=== PATIENT | female | born 1955 | race Caucasian/White ===

== ENCOUNTER 2018-04-07 09:40 | Observation (INO) | payer MEDICARE ==
[2018-04-07 11:47] LABS: Hematocrit 37.9 % (35-47); Hemoglobin 12.4 gm/dl (12.0-16.0); Mean Cell Volume 93.1 fl (78-100); Mean Corpuscular Hgb Concent. 32.7 g/dl (32-36); Mean Platelet Volume 10.5 fl (6-9.5); Platelet Count 167 K/mm3 (150-450); Red Blood Count 4.07 M/mm3 (4.1-5.4); White Blood Count 5.7 K/mm3 (4.0-10.5)
[2018-04-07 11:52] LABS: ALBUMIN 4.1 g/dL (3.5-5.0); ALKALINE PHOSPHATASE 177 U/L (38-126); BLOOD UREA NITROGEN 11 mg/dL (7-17); CHLORIDE 102 mmol/L (98-107); Calcium 9.7 mg/dL (8.4-10.2); Carbon Dioxide 31 mmol/L (22-30); Creatinine 1 0.62 mg/dL (0.52-1.04); Glucose 103 mg/dL (74-106); Potassium 3.7 mmol/L (3.5-5.1); SGOT/AST 33 U/L (14-36); SGPT/ALT 20 U/L (0-35); SODIUM 142 mmol/L (137-145); Total Protein 8.3 g/dL (6.3-8.2)
[2018-04-07 12:09] LABS: Mean Corpuscular Hemoglobin 30.4 pg (26-32)
[2018-04-07] MEDS ORDERED: NON-FORMULARY ITEM (Cholecalciferol (Vitamin D3) [Vitamin D3] 50,000 UNIT) PO SCH (12:30)
[2018-04-07 12:36] LABS: INFLUENZA A NEGATIVE (NEGATIVE); INFLUENZA B NEGATIVE (NEGATIVE); RESPIRATORY SYNCTIAL VIRUS NEGATIVE (Negative)
[2018-04-07] MEDS: Sodium Chloride 0.9% 1000 ML 1,000 ML IV SCH (12:50)
--- NOTE | 2018-04-07 12:52 | XRAY ---
Indication: Cough, congestion, and fever 3 weeks. History COPD. Comparison: March 23, 2016. PA/lateral chest again hyperinflated with a few incidental calcified granulomas. No focal infiltrate, consolidation, or large effusion. Heart and mediastinal structures within normal limits. Bony thorax intact. Impression: Stable nonacute hyperinflated chest with evidence for old granulomatous disease.
[2018-04-07] MEDS ORDERED: VITAMIN D2 PO SCH (13:00)
[2018-04-07] MEDS: DUONEB 0.5-3 MG/3 ml Neb IH SCH ×2 (13:17→19:12)
[2018-04-07] MEDS: ROCEPHIN 1 Gm-D5w 50 ml Bag** 1 G/50 ML IVPB IV SCH (17:23)
[2018-04-07] MEDS: solu-MEDROL 40 MG IV SCH (17:23)
[2018-04-07] MEDS: TYLENOL EXTRA STRENGTH 500 MG PO PRN (18:02)
[2018-04-07] MEDS: Klonopin 0.5 MG PO SCH (21:28)
[2018-04-07] MEDS: Pletal 100 MG PO SCH (21:28)
[2018-04-08] MEDS: DUONEB 0.5-3 MG/3 ml Neb IH SCH ×4 (01:00→21:11)
[2018-04-08] MEDS: Sodium Chloride 0.9% 1000 ML 1,000 ML IV SCH ×2 (02:02→15:05)
[2018-04-08] MEDS: solu-MEDROL 40 MG IV SCH ×2 (05:29→17:42)
[2018-04-08] MEDS: Pletal 100 MG PO SCH ×2 (09:51→23:03)
[2018-04-08] MEDS: hydroDIURIL 25 MG PO SCH (09:52)
[2018-04-08] MEDS: Pepcid 20 MG PO SCH (09:52)
[2018-04-08] MEDS: Paxil 20 MG PO SCH (09:53)
[2018-04-08] MEDS: Cozaar 50 MG PO SCH (09:53)
[2018-04-08] MEDS: Klor Con 10 MEQ PO SCH (09:53)
[2018-04-08] MEDS: Protonix 40MG Tablet PO SCH (09:53)
[2018-04-08] MEDS: ROCEPHIN 1 Gm-D5w 50 ml Bag** 1 G/50 ML IVPB IV SCH (09:54)
[2018-04-08] MEDS ORDERED: NON-FORMULARY ITEM (Ranitidine Hcl [Ranitidine Hcl] 150 MG) PO SCH (10:00)
[2018-04-08] MEDS ORDERED: NON-FORMULARY ITEM (Losartan/Hydrochlorothiazide [Losartan-Hctz 50-12.5 Mg Tab] 1 EACH) PO SCH (10:00)
[2018-04-08] MEDS ORDERED: FLUZONE QUAD (36mo-64yo) 2018-2019 SYRINGE IM ONE (10:00)
[2018-04-08] MEDS ORDERED: NON-FORMULARY ITEM (Omeprazole [Omeprazole] 40 MG) PO SCH (10:00)
--- NOTE | 2018-04-08 13:05 | PCM.NOTE ---
Date and Time: 04/08/18 1302 Subjective Assessment: doing ok, cough - Review of Systems Constitutional: No Fever, No Chills Eyes: No Symptoms Ears, Nose, & Throat: No Symptoms Respiratory: Short Of Breath, No Cough Cardiac: No Chest Pain, No Edema, No Syncope Abdominal/Gastrointestinal: No Abdominal Pain, No Nausea, No Vomiting, No Diarrhea Genitourinary Symptoms: No Dysuria Musculoskeletal: No Back Pain, No Neck Pain Skin: No Rash Neurological: No Dizziness, No Focal Weakness, No Sensory Changes Psychological: No Symptoms Endocrine: No Symptoms Hematologic/Lymphatic: No Symptoms Immunological/Allergic: No Symptoms Objective Exam General Appearance: no apparent distress, alert Neurologic Exam: alert, oriented x 3, cooperative, normal mood/affect, nml cerebellar function, sensation nml, No motor deficits Skin Exam: normal color, warm, dry Eye Exam: PERRL, EOMI, eyes nml inspection Ears, Nose, Throat Exam: normal ENT inspection, pharynx normal, moist mucous membranes Neck Exam: normal inspection, non-tender, supple, full range of motion Respiratory Exam: normal breath sounds, lungs clear, No respiratory distress Cardiovascular Exam: regular rate/rhythm, normal heart sounds Gastrointestinal/Abdomen Exam: soft, No tenderness, No mass Extremity Exam: normal inspection, normal range of motion Back Exam: normal inspection, normal range of motion, No CVA tenderness, No vertebral tenderness Pelvic Exam: deferred Rectal Exam: deferred OBJECTIVE DATA Vital Signs: Vital Signs - 24 hr Temp Pulse Resp BP Pulse Ox 04/08/18 12:55 123 H 18 96 04/08/18 12:00 98 F 115 H 20 157/87 97 04/08/18 08:00 97.5 F 118 H 20 159/83 96 04/08/18 07:18 123 H 20 94 L 04/08/18 03:39 98.4 F 121 H 19 126/65 94 L 04/08/18 01:07 112 H 22 94 L 04/07/18 23:57 98.1 F 117 H 19 152/74 93 L 04/07/18 19:43 99.0 F 111 H 18 129/76 94 L 04/07/18 19:15 116 H 16 94 L 04/07/18 16:00 98.1 F 111 H 18 136/76 95 04/07/18 13:20 110 H 22 97 Pain Assessment - Last Documented Pain Intensity 0 Pain Scale Used 0-10 Pain Scale Intake and Output: Intake & Output 04/06/18 04/07/18 04/08/18 04/09/18 11:59 11:59 11:59 11:59 Intake Total 1780 360 Output Total 1000 500 Balance 780 -140 Weight 63.2 kg Radiology Exams: Radiology Procedures Category Date Time Status CHEST 2 VIEWS (PA AND LAT) Urgent Exams 04/07/18 12:44 Completed Multi-Disciplinary Progress Notes: Multi-Disciplinary Progress Notes 04/08/18 10:10 Case Management Note by Marcelle Blanc DISCHARGE PLAN REVIEWED, PLANS TO RETURN HOME TO PRE EPISODIC LEVEL OF [facility], INDEPENDENT WITH ALL ADL'S. AT HOME TO HELP IF NEEDED. WILL FOLLOW FOR ALL DC NEEDS. Initialized on 04/08/18 10:10 - END OF NOTE Assessment/Plan (1) COPD (chronic obstructive pulmonary disease) Current Visit: Yes Status: Acute Onset Date: ~04/07/18 Qualifiers: COPD type: chronic bronchitis Assessment & Plan: Last Vital Signs Temp 98 F 04/08/18 12:00 Pulse 123 H 04/08/18 12:55 Resp 18 04/08/18 12:55 BP 157/87 04/08/18 12:00 Pulse Ox 96 04/08/18 12:55 Allergies latex Allergy (Mild, Verified 08/24/15 12:20) Hives lamotrigine [From Lamictal] Adverse Reaction (Severe, Verified 08/24/15 12:22) Lightheadedness Active Medications Acetaminophen (Tylenol Extra Strength 500 Mg) 500 mg PO Q4HPRN PRN PRN Reason: PAIN Stop: 05/07/18 17:57 Last Admin: 04/07/18 18:02 Dose: 500 mg Albuterol/Ipratropium (Duoneb 0.5-3 Mg/3 Ml Neb) 3 ml IH Q6HRT GUSTAVO Stop: 05/07/18 12:59 Last Admin: 04/08/18 12:53 Dose: 3 ml Cilostazol (Pletal 100 Mg) 100 mg PO BID GUSTAVO Stop: 05/07/18 21:59 Last Admin: 04/08/18 09:51 Dose: 100 mg Clonazepam (Klonopin 0.5 Mg) 0.5 mg PO HS GUSTAVO Stop: 05/07/18 21:59 Last Admin: 04/07/18 21:28 Dose: 0.5 mg Diphenhydramine/Hydrocorti/Nystatin (Audelia's Mouthwash) 5 ml PO Q2H GUSTAVO Stop: 05/08/18 13:29 Ergocalciferol (Vitamin D2) 50,000 unit PO WEEKLY GUSTAVO Stop: 05/07/18 12:59 Last Admin: 04/07/18 21:28 Dose: 50,000 unit Famotidine (Pepcid 20 Mg) 20 mg PO DAILY GUSTAVO Stop: 05/08/18 09:59 Last Admin: 04/08/18 09:52 Dose: 20 mg Hydrochlorothiazide (Hydrodiuril 25 Mg) 12.5 mg PO DAILY GUSTAVO Stop: 05/08/18 09:59 Last Admin: 04/08/18 09:52 Dose: 12.5 mg Sodium Chloride (Sodium Chloride 0.9% 1000 Ml) 1,000 mls @ 80 mls/hr IV .[id number] [facility] Stop: 05/07/18 11:44 Last Admin: 04/08/18 02:02 Dose: 80 mls/hr Ceftriaxone Sodium/Dextrose (Rocephin 1 Gm-D5w 50 Ml Bag) 1 g in 50 mls @ 100 mls/hr IV Q24H10 [facility] Stop: 05/07/18 16:59 Last Admin: 04/08/18 09:54 Dose: 100 mls/hr Losartan Potassium (Cozaar 50 Mg) 50 mg PO DAILY GUSTAVO Stop: 05/08/18 09:59 Last Admin: 04/08/18 09:53 Dose: 50 mg Methylprednisolone Sodium Succinate (Solu-Medrol 40 Mg) 40 mg IV Q12H GUSTAVO Stop: 05/07/18 17:59 Last Admin: 04/08/18 05:29 Dose: 40 mg Pantoprazole Sodium (Protonix 40mg Tablet) 40 mg PO DAILY GUSTAVO Stop: 05/08/18 09:59 Last Admin: 04/08/18 09:53 Dose: 40 mg Paroxetine HCl (Paxil 20 Mg) 20 mg PO DAILY GUSTAVO Stop: 05/08/18 09:59 Last Admin: 04/08/18 09:53 Dose: 20 mg Potassium Chloride (Klor Con 10 Meq) 10 meq PO DAILY GUSTAVO Stop: 05/08/18 09:59 Last Admin: 04/08/18 09:53 Dose: 10 meq Intake & Output 04/08/18 04/09/18 11:59 11:59 Intake Total 1780 360 Output Total 1000 500 Balance 780 -140 Orders 04/07/18 13:00 Albuterol/Ipratropium 3ml Neb* [DUONEB 0.5-3 MG/3 ml Neb] 3 ml IH Q6HRT Ergocalciferol (Vitamin D2) [Vitamin D2] 50,000 unit PO WEEKLY 04/07/18 13:18 Respiratory Therapy Assessment DAILY 04/07/18 13:19 Peak Expiratory Flow Rate ONCE 04/07/18 13:20 Pulse Oximetry .spot check 04/07/18 17:00 Ceftriaxone 1 GM/50 ML PREMIX* [ROCEPHIN 1 Gm-D5w 50 ml Bag] 1 g in 50 ml IV Q24H10 04/07/18 17:58 Acetaminophen 500 mg [Tylenol Extra Strength 500 mg] 500 mg PO Q4HPRN PRN 04/07/18 18:00 Methylprednisolone Sod Suc 40M [solu-MEDROL 40 MG] 40 mg IV Q12H 04/07/18 22:00 Cilostazol 100 mg [Pletal 100 MG] 100 mg PO BID Clonazepam 0.5 mg [Klonopin 0.5 MG] 0.5 mg PO HS 04/08/18 10:00 Famotidine 20 mg [Pepcid 20 MG] 20 mg PO DAILY Hydrochlorothiazide 25 mg [hydroDIURIL 25 MG] 12.5 mg PO DAILY Losartan Potassium 50 mg [Cozaar 50 MG] 50 mg PO DAILY PANTOPRAZOLE 40 mg Tablet [Protonix 40MG Tablet] 40 mg PO DAILY Paroxetine HCl 20 mg [Paxil 20 MG] 20 mg PO DAILY Potassium Chloride 10 Meq Tab* [Klor Con 10 MEQ] 10 meq PO DAILY 04/08/18 13:30 Nystatin/TCN/Hc/Diphenhydramin [Audelia's Mouthwash] 5 ml PO Q2H
[2018-04-08] MEDS: MARY'S MOUTHWASH PO SCH ×3 (14:08→23:03)
[2018-04-08] MEDS: ENOXAPARIN SODIUM SQ SCH (15:27)
[2018-04-08] MEDS ORDERED: ZOFRAN ODT 4 MG PO PRN (21:31)
[2018-04-08] MEDS: TYLENOL EXTRA STRENGTH 500 MG PO PRN (22:24)
[2018-04-08] MEDS: Klonopin 0.5 MG PO SCH (23:03)
[2018-04-09] MEDS: DUONEB 0.5-3 MG/3 ml Neb IH SCH ×2 (00:59→07:36)
[2018-04-09] MEDS: Sodium Chloride 0.9% 1000 ML 1,000 ML IV SCH (03:46)
[2018-04-09] MEDS: solu-MEDROL 40 MG IV SCH (05:58)
[2018-04-09] MEDS: Klor Con 10 MEQ PO SCH (09:20)
[2018-04-09] MEDS: Pepcid 20 MG PO SCH (09:20)
[2018-04-09] MEDS: ROCEPHIN 1 Gm-D5w 50 ml Bag** 1 G/50 ML IVPB IV SCH (09:21)
[2018-04-09] MEDS: Paxil 20 MG PO SCH (09:21)
[2018-04-09] MEDS: Cozaar 50 MG PO SCH (09:21)
[2018-04-09] MEDS: hydroDIURIL 25 MG PO SCH (09:21)
[2018-04-09] MEDS: Pletal 100 MG PO SCH (09:21)
[2018-04-09] MEDS: Protonix 40MG Tablet PO SCH (09:21)
[2018-04-09] MEDS: ENOXAPARIN SODIUM SQ SCH (09:22)
[2018-04-09] MEDS: MARY'S MOUTHWASH PO SCH (09:30)
--- NOTE | 2018-04-09 10:37 | PCM.DS ---
Discharge Summary Date of Admission: 04/07/18 09:59 Admitting Physician: MARIAJOSE RED Primary Care Provider: MARIAJOSE RED Allergies Allergies latex Allergy (Mild, Verified 08/24/15 12:20) Hives lamotrigine [From Lamictal] Adverse Reaction (Severe, Verified 08/24/15 12:22) [facility] Summary - Hospital Course Hospital Course: Chief Complaint Diagnosis COPD EXACERBATION Allergies Allergy/AdvReac Type Severity Reaction Status Date / Time latex Allergy Mild Hives Verified 08/24/15 12:20 lamotrigine [From Lamictal] AdvReac Severe Lightheaded Verified 08/24/15 12:22 ness Vital Signs (Last 24 hours) Temp Pulse Resp BP Pulse Ox 04/09/18 07:50 115 H 20 93 L 04/09/18 07:34 97.8 F 118 H 20 170/84 96 04/09/18 04:03 98.3 F 121 H 16 140/88 96 04/09/18 01:00 101 H 20 92 L 04/09/18 00:05 98.0 F 115 H 20 163/94 98 04/08/18 20:42 117 H 21 95 04/08/18 19:28 98.0 F 121 H 22 178/91 97 04/08/18 15:56 98.1 F 120 H 18 174/79 96 04/08/18 12:55 123 H 18 96 04/08/18 12:00 98 F 115 H 20 157/87 97 Home Medications Medication Instructions Recorded Confirmed Last Taken Type Cholecalciferol (Vitamin D3) 50,000 unit PO WEEKLY 04/07/18 04/07/18 03/31/18 History [Vitamin D] Cilostazol 100 mg [Pletal 100 100 mg PO BID 04/07/18 04/07/18 04/07/18 History MG] Clonazepam 0.5 mg [Klonopin 0.5 0.5 mg PO HS 04/07/18 04/07/18 04/06/18 History MG] Losartan/Hydrochlorothiazide 1 each PO DAILY 04/07/18 04/07/18 04/07/18 History [Losartan-Hctz 50-12.5 mg Tab] Omeprazole 40 mg PO DAILY 04/07/18 04/07/18 04/07/18 History Paroxetine HCl 20 mg [Paxil 20 20 mg PO DAILY 04/07/18 04/07/18 04/07/18 History MG] Potassium Chloride 10 Meq Tab* 10 meq PO DAILY 04/07/18 04/07/18 04/07/18 History [Klor Con 10 MEQ] Ranitidine HCl 150 mg PO DAILY 04/07/18 04/07/18 04/07/18 History Current Medications Generic Name Dose Route Start Last Admin Trade Name Freq PRN Reason Stop Dose Admin Acetaminophen 500 mg 04/07/18 17:58 04/08/18 22:24 Tylenol Extra Strength 500 Mg PO 05/07/18 17:57 500 mg Q4HPRN PRN Administration PAIN Albuterol/Ipratropium 3 ml 04/07/18 13:00 04/09/18 07:36 Duoneb 0.5-3 Mg/3 Ml Neb IH 05/07/18 12:59 3 ml Q6HRT GUSTAVO Administration Cilostazol 100 mg 04/07/18 22:00 04/09/18 09:21 Pletal 100 Mg PO 05/07/18 21:59 100 mg BID GUSTAVO Administration Clonazepam 0.5 mg 04/07/18 22:00 04/08/18 23:03 Klonopin 0.5 Mg PO 05/07/18 21:59 0.5 mg HS GUSTAVO Administration Diphenhydramine/Hydrocorti/Nystatin 5 ml 04/08/18 13:30 04/09/18 09:30 Mustapha's Mouthwash PO 05/08/18 13:29 5 ml QID GUSTAVO Administration Enoxaparin Sodium 40 mg 04/08/18 15:00 04/09/18 09:22 Enoxaparin Sodium SQ 05/08/18 14:59 40 mg DAILY GUSTAVO Administration Ergocalciferol 50,000 unit 04/07/18 13:00 04/07/18 21:28 Vitamin D2 PO 05/07/18 12:59 50,000 unit WEEKLY GUSTAVO Administration Famotidine 20 mg 04/08/18 10:00 04/09/18 09:20 Pepcid 20 Mg PO 05/08/18 09:59 20 mg DAILY GUSTAVO Administration Hydrochlorothiazide 12.5 mg 04/08/18 10:00 04/09/18 09:21 Hydrodiuril 25 Mg PO 05/08/18 09:59 12.5 mg DAILY GUSTAVO Administration Sodium Chloride 1,000 mls @ 80 mls/hr 04/07/18 11:45 04/09/18 03:46 Sodium Chloride 0.9% 1000 Ml IV 05/07/18 11:44 80 mls/hr .[id number] GUSTAVO Administration Ceftriaxone Sodium/Dextrose 1 g in 50 mls @ 100 mls/hr 04/07/18 17:00 09:21 Rocephin 1 Gm-D5w 50 Ml Bag IV 05/07/18 16:59 100 mls/hr Q24H10 GUSTAVO Administration Losartan Potassium 50 mg 04/08/18 10:00 04/09/18 09:21 Cozaar 50 Mg PO 05/08/18 09:59 50 mg DAILY GUSTAVO Administration Methylprednisolone Sodium Succinate 40 mg 04/07/18 18:00 04/09/18 05:58 Solu-Medrol 40 Mg IV 05/07/18 17:59 40 mg Q12H GUSTAVO Administration Ondansetron HCl 4 mg 04/08/18 21:31 04/08/18 22:13 Zofran Odt 4 Mg PO 05/08/18 21:30 4 mg Q6H PRN PRN Administration NAUSEA/VOMITING Pantoprazole Sodium 40 mg 04/08/18 10:00 04/09/18 09:21 Protonix 40mg Tablet PO 05/08/18 09:59 40 mg DAILY GUSTAVO Administration Paroxetine HCl 20 mg 04/08/18 10:00 04/09/18 09:21 Paxil 20 Mg PO 05/08/18 09:59 20 mg DAILY GUSTAVO Administration Potassium Chloride 10 meq 04/08/18 10:00 04/09/18 09:20 Klor Con 10 Meq PO 05/08/18 09:59 10 meq DAILY GUSTAVO Administration Discontinued Medications Generic Name Dose Route Start Last Admin Trade Name Freq PRN Reason Stop Dose Admin Influenza Virus Vaccine 60 mcg 04/08/18 10:00 04/08/18 09:56 Fluzone Quad (36mo-64yo) [id number] Syringe IM 04/08/18 10:01 60 mcg .ONCE ONE Administration Intake & Output (Last 24 hours) 04/06/18 04/07/18 04/08/18 04/09/18 11:59 11:59 11:59 11:59 Intake Total 1780 3458 Output Total 1000 1700 Balance 780 1758 Weight 63.2 kg Orders (Last 24 hours) Category Date Time Status Enoxaparin Sodium [Enoxaparin Sodium] Med 04/08/18 15:00 Active 40 mg SQ DAILY Famotidine 20 mg [Pepcid 20 MG] Med 04/08/18 10:00 Active 20 mg PO DAILY Flu Vacc [id number] 36Mos Up/Pf [FLUZONE QUAD (36mo-64yo Med 04/08/18 10:00 Discontinued ) SYRINGE] 60 mcg IM .ONCE ONE Hydrochlorothiazide 25 mg [hydroDIURIL 25 MG] Med 04/08/18 10:00 Active 12.5 mg PO DAILY Losartan Potassium 50 mg [Cozaar 50 MG] Med 04/08/18 10:00 Active 50 mg PO DAILY Nystatin/TCN/Hc/Diphenhydramin [Mustapha's Mouthwash] Med 04/08/18 13:30 Active 5 ml PO QID Ondansetron ODT 4 MG [Zofran Odt 4 mg] Med 04/08/18 21:31 Active 4 mg PO Q6H PRN PRN PANTOPRAZOLE 40 mg Tablet [Protonix 40MG Tablet] Med 04/08/18 10:00 Active 40 mg PO DAILY Paroxetine HCl 20 mg [Paxil 20 MG] Med 04/08/18 10:00 Active 20 mg PO DAILY Potassium Chloride 10 Meq Tab* [Klor Con 10 MEQ] Med 04/08/18 10:00 Active 10 meq PO DAILY Patient Care Notes (Last 24 hours) 04/08/18 21:11 Respiratory Note by Rahul Ellis PT REQUESTED THAT SHE SKIP HER 1900 TX THIS EVENING DUE TO FEELING NAUSEOUS. ALERTED NURSING. PT KNOWS TO CALL FOR RT IF NEEDED, NEXT SCHEDULED [place] IS AT 0100. Initialized on 04/08/18 21:11 - END OF NOTE 04/08/18 13:00 (created 04/08/18 13:22) Case Management Note by Marcelle Blanc DR. ROUNDED AND EVALUATED, DISCUSSED DX COPD AND PLAN OF CARE WITH PT. PT VERBALIZED UNDERSTANDING AND ABLE TO REPEAT INFORMATION BACK. ALL QUESTIONS ANSWERED. N/O FOR MUSTAPHA'S MAGIC MOUTHWASH. DR. ERD DISCUSSED WITH PT THAT SHE WOULD LIKELY DC HOME TOMORROW, IF SHE CONTINUES TO IMPROVE. PT DENIES ADDNL NEEDS FOR DISCHARGE. WILL FOLLOW. Initialized on 04/08/18 13:22 - END OF NOTE 04/08/18 11:25 Nursing Note by Kayy Munoz Dr. returned call approx 0900. Advised patient to eat soft foods and do salt water gargles. Initialized on 04/08/18 11:25 - END OF NOTE - Vitals & Intake/Output Vital Signs: Vital Signs Temperature 97.8 F 04/09/18 07:34 Pulse Rate 115 H 04/09/18 07:50 Respiratory Rate 20 04/09/18 07:50 Blood Pressure 170/84 04/09/18 07:34 O2 Sat by Pulse Oximetry 93 L 04/09/18 07:50 Intake & Output: Intake & Output 04/06/18 04/07/18 04/08/18 04/09/18 11:59 11:59 11:59 11:59 Intake Total 1780 3458 Output Total 1000 1700 Balance 780 1758 Weight 63.2 kg - Lab Result Diagrams: 04/07/18 11:48 04/07/18 11:48 - Radiology Exams Ordered Rad Exams-Entire Visit: Radiology Procedures Category Date Time Status CHEST 2 VIEWS (PA AND LAT) Urgent Exams 04/07/18 12:44 Completed - Procedures and Test Procedures and Tests throughout Hospitalization: Therapy Orders & Screens 04/07/18 13:18 Respiratory Therapy Assessment DAILY Comment: Diagnosis: COPD EXACERBATION 04/07/18 13:19 Peak Expiratory Flow Rate ONCE Comment: Reason For Exam: Diagnosis: COPD EXACERBATION Discharge Exam General Appearance: no apparent distress, alert Neurologic Exam: alert, oriented x 3, cooperative, normal mood/affect, nml cerebellar function, sensation nml, No motor deficits Skin Exam: normal color, warm, dry Eye Exam: PERRL, EOMI, eyes nml inspection Ears, Nose, Throat Exam: normal ENT inspection, pharynx normal, moist mucous membranes Neck Exam: normal inspection, non-tender, supple, full range of motion Respiratory Exam: normal breath sounds, lungs clear, No respiratory distress Cardiovascular Exam: regular rate/rhythm, normal heart sounds Gastrointestinal/Abdomen Exam: soft, No tenderness, No mass Extremity Exam: normal inspection, normal range of motion Back Exam: normal inspection, normal range of motion, No CVA tenderness, No vertebral tenderness Pelvic Exam: deferred Rectal Exam: deferred Final Diagnosis/Problem List - Final Discharge Diagnosis/Problem (1) COPD (chronic obstructive pulmonary disease) Current Visit: Yes Status: Acute Onset Date: ~04/07/18 Assessment & Plan: Chief Complaint Diagnosis COPD EXACERBATION Allergies Allergy/AdvReac Type Severity Reaction Status Date / Time latex Allergy Mild Hives Verified 08/24/15 12:20 lamotrigine [From Lamictal] AdvReac Severe Lightheaded Verified 08/24/15 12:22 ness Vital Signs (Last 24 hours) Temp Pulse Resp BP Pulse Ox 04/09/18 07:50 115 H 20 93 L 04/09/18 07:34 97.8 F 118 H 20 170/84 96 04/09/18 04:03 98.3 F 121 H 16 140/88 96 04/09/18 01:00 101 H 20 92 L 04/09/18 00:05 98.0 F 115 H 20 163/94 98 04/08/18 20:42 117 H 21 95 04/08/18 19:28 98.0 F 121 H 22 178/91 97 04/08/18 15:56 98.1 F 120 H 18 174/79 96 04/08/18 12:55 123 H 18 96 04/08/18 12:00 98 F 115 H 20 157/87 97 Home Medications Medication Instructions Recorded Confirmed Last Taken Type Cholecalciferol (Vitamin D3) 50,000 unit PO WEEKLY 04/07/18 04/07/18 03/31/18 History [Vitamin D] Cilostazol 100 mg [Pletal 100 100 mg PO BID 04/07/18 04/07/18 04/07/18 History MG] Clonazepam 0.5 mg [Klonopin 0.5 0.5 mg PO HS 1204/07/18 04/06/18 History MG] Losartan/Hydrochlorothiazide 1 each PO DAILY 04/07/18 04/07/18 04/07/18 History [Losartan-Hctz 50-12.5 mg Tab] Omeprazole 40 mg PO DAILY 04/07/18 04/07/18 04/07/18 History Paroxetine HCl 20 mg [Paxil 20 20 mg PO DAILY 04/07/18 04/07/18 04/07/18 History MG] Potassium Chloride 10 Meq Tab* 10 meq PO DAILY 04/07/18 04/07/18 04/07/18 History [Klor Con 10 MEQ] Ranitidine HCl 150 mg PO DAILY 04/07/18 04/07/18 04/07/18 History Current Medications Generic Name Dose Route Start Last Admin Trade Name Freq PRN Reason Stop Dose Admin Acetaminophen 500 mg 04/07/18 17:58 04/08/18 22:24 Tylenol Extra Strength 500 Mg PO 05/07/18 17:57 500 mg Q4HPRN PRN Administration PAIN Albuterol/Ipratropium 3 ml 04/07/18 13:00 04/09/18 07:36 Duoneb 0.5-3 Mg/3 Ml Neb IH 05/07/18 12:59 3 ml Q6HRT GUSTAVO Administration Cilostazol 100 mg 04/07/18 22:00 04/09/18 09:21 Pletal 100 Mg PO 05/07/18 21:59 100 mg BID GUSTAVO Administration Clonazepam 0.5 mg 04/07/18 22:00 04/08/18 23:03 Klonopin 0.5 Mg PO 05/07/18 21:59 0.5 mg HS GUSTAVO Administration Diphenhydramine/Hydrocorti/Nystatin 5 ml 04/08/18 13:30 04/09/18 09:30 Mustapha's Mouthwash PO 05/08/18 13:29 5 ml QID GUSTAVO Administration Enoxaparin Sodium 40 mg 04/08/18 15:00 04/09/18 09:22 Enoxaparin Sodium SQ 05/08/18 14:59 40 mg DAILY GUSTAVO Administration Ergocalciferol 50,000 unit 04/07/18 13:00 04/07/18 21:28 Vitamin D2 PO 05/07/18 12:59 50,000 unit WEEKLY GUSTAVO Administration Famotidine 20 mg 04/08/18 10:00 04/09/18 09:20 Pepcid 20 Mg PO 05/08/18 09:59 20 mg DAILY GUSTAVO Administration Hydrochlorothiazide 12.5 mg 04/08/18 10:00 04/09/18 09:21 Hydrodiuril 25 Mg PO 05/08/18 09:59 12.5 mg DAILY GUSTAVO Administration Sodium Chloride 1,000 mls @ 80 mls/hr 04/07/18 11:45 04/09/18 03:46 Sodium Chloride 0.9% 1000 Ml IV 05/07/18 11:44 80 mls/hr .[id number] GUSTAVO Administration Ceftriaxone Sodium/Dextrose 1 g in 50 mls @ 100 mls/hr 04/07/18 17:00 12 09:21 Rocephin 1 Gm-D5w 50 Ml Bag IV 05/07/18 16:59 100 mls/hr Q24H10 GUSTAVO Administration Losartan Potassium 50 mg 04/08/18 10:00 04/09/18 09:21 Cozaar 50 Mg PO 05/08/18 09:59 50 mg DAILY GUSTAVO Administration Methylprednisolone Sodium Succinate 40 mg 04/07/18 18:00 04/09/18 05:58 Solu-Medrol 40 Mg IV 05/07/18 17:59 40 mg Q12H GUSTAVO Administration Ondansetron HCl 4 mg 04/08/18 21:31 04/08/18 22:13 Zofran Odt 4 Mg PO 05/08/18 21:30 4 mg Q6H PRN PRN Administration NAUSEA/VOMITING Pantoprazole Sodium 40 mg 04/08/18 10:00 04/09/18 09:21 Protonix 40mg Tablet PO 05/08/18 09:59 40 mg DAILY GUSTAVO Administration Paroxetine HCl 20 mg 04/08/18 10:00 04/09/18 09:21 Paxil 20 Mg PO 05/08/18 09:59 20 mg DAILY GUSTAVO Administration Potassium Chloride 10 meq 04/08/18 10:00 04/09/18 09:20 Klor Con 10 Meq PO 05/08/18 09:59 10 meq DAILY GUSTAVO Administration Discontinued Medications Generic Name Dose Route Start Last Admin Trade Name Freq PRN Reason Stop Dose Admin Influenza Virus Vaccine 60 mcg 04/08/18 10:00 04/08/18 09:56 Fluzone Quad (36mo-64yo) Syringe IM 04/08/18 10:01 60 mcg .ONCE ONE Administration Intake & Output (Last 24 hours) 04/06/18 04/07/18 04/08/18 04/09/18 11:59 11:59 11:59 11:59 Intake Total 1780 3458 Output Total 1000 1700 Balance 780 1758 Weight 63.2 kg Orders (Last 24 hours) Category Date Time Status Enoxaparin Sodium [Enoxaparin Sodium] Med 04/08/18 15:00 Active 40 mg SQ DAILY Famotidine 20 mg [Pepcid 20 MG] Med 04/08/18 10:00 Active 20 mg PO DAILY Flu Vacc [id number] 36Mos Up/Pf [FLUZONE QUAD (36mo-64yo Med 04/08/18 10:00 Discontinued ) SYRINGE] 60 mcg IM .ONCE ONE Hydrochlorothiazide 25 mg [hydroDIURIL 25 MG] Med 04/08/18 10:00 Active 12.5 mg PO DAILY Losartan Potassium 50 mg [Cozaar 50 MG] Med 04/08/18 10:00 Active 50 mg PO DAILY Nystatin/TCN/Hc/Diphenhydramin [Mustapha's Mouthwash] Med 04/08/18 13:30 Active 5 ml PO QID Ondansetron ODT 4 MG [Zofran Odt 4 mg] Med 04/08/18 21:31 Active 4 mg PO Q6H PRN PRN PANTOPRAZOLE 40 mg Tablet [Protonix 40MG Tablet] Med 04/08/18 10:00 Active 40 mg PO DAILY Paroxetine HCl 20 mg [Paxil 20 MG] Med 04/08/18 10:00 Active 20 mg PO DAILY Potassium Chloride 10 Meq Tab* [Klor Con 10 MEQ] Med 04/08/18 10:00 Active 10 meq PO DAILY Patient Care Notes (Last 24 hours) 04/08/18 21:11 Respiratory Note by Rahul Ellis PT REQUESTED THAT SHE SKIP HER 1900 TX THIS EVENING DUE TO FEELING NAUSEOUS. ALERTED NURSING. PT KNOWS TO CALL FOR RT IF NEEDED, NEXT SCHEDULED [place] IS AT 0100. Initialized on 04/08/18 21:11 - END OF NOTE 04/08/18 13:00 (created 04/08/18 13:22) Case Management Note by Marcelle Blanc DR. ROUNDED AND EVALUATED, DISCUSSED DX COPD AND PLAN OF CARE WITH PT. PT VERBALIZED UNDERSTANDING AND ABLE TO REPEAT INFORMATION BACK. ALL QUESTIONS ANSWERED. N/O FOR MUSTAPHA'S MAGIC MOUTHWASH. DR. RED DISCUSSED WITH PT THAT SHE WOULD LIKELY DC HOME TOMORROW, IF SHE CONTINUES TO IMPROVE. PT DENIES ADDNL NEEDS FOR DISCHARGE. WILL FOLLOW. Initialized on 04/08/18 13:22 - END OF NOTE 04/08/18 11:25 Nursing Note by Kayy Munoz Dr. returned call approx 0900. Advised patient to eat soft foods and do salt water gargles. Initialized on 04/08/18 11:25 - END OF NOTE - Discharge Discharge Date: 04/09/18 Disposition: Home, Self-Care Condition: Stable Prescriptions: New Methylprednisolone Packet [Medrol Dosepack] 4 mg PO UD #30 packet Doxycycline Hyclate 100 mg [Vibramycin 100 MG] 100 mg PO BID #15 tab Ondansetron ODT 4 MG [Zofran Odt 4 mg] 4 mg PO Q6H PRN PRN #10 tab.rapdis PRN Reason: Nausea Continue Ranitidine HCl 150 mg PO DAILY Cilostazol 100 mg [Pletal 100 MG] 100 mg PO BID Cholecalciferol (Vitamin D3) [Vitamin D3] 50,000 unit PO WEEKLY Clonazepam 0.5 mg [Klonopin 0.5 MG] 0.5 mg PO HS Losartan/Hydrochlorothiazide [Losartan-Hctz 50-12.5 mg Tab] 1 each PO DAILY Omeprazole 40 mg PO DAILY Potassium Chloride 10 Meq Tab* [Klor Con 10 MEQ] 10 meq PO DAILY Paroxetine HCl 20 mg [Paxil 20 MG] 20 mg PO DAILY Follow up with: MARIAJOSE RED MD [Primary Care Provider] - 04/15/18 2:15 pm (at [facility])
[2018-04-09 12:33] VITALS: BP 156/83; PULSE 120; O2SAT 94
== END 2018-04-09 12:30 | disposition home or self-care (01) ==
LOC: MED SURG 09:59
PROVIDERS: ADMIT General Practice; ATTEND General Practice
DX: J44.1 Chronic obstructive pulmonary disease with (acute) exacerbation (principal); I10 Essential (primary) hypertension; I73.9 Peripheral vascular disease, unspecified; Z79.899 Other long term (current) drug therapy; Z23 Encounter for immunization
CPT/HCPCS: 36415; 71046; 80053; 85027; 87631; 94150; 94640; 94760; G0008; G0378; 90686; J0696; J1650; J2920; Q0162; A9270-GY

== ENCOUNTER 2018-05-25 16:02 | Emergency (ER) | payer MEDICARE ==
--- NOTE | 2018-05-25 17:17 | XRAY ---
Indication: Pain following fall. Comparison: January 04, 2014 3 nonweightbearing views of the right foot demonstrates new nondisplaced acute fracture base of the 5th metatarsal. Elsewhere stable mild 1st MTP bunion deformity and mild midfoot degenerative changes. No other bony, articular, or soft tissue abnormalities.
--- NOTE | 2018-05-25 17:20 | XRAY ---
Indication: Pain following fall. Comparison: None 3 views of the right ankle demonstrates nondisplaced fracture base of the 5th metatarsal and lateral ankle soft tissue swelling. No other bony, articular, or soft tissue abnormalities.
--- NOTE | 2018-05-25 18:37 | ERPHSYRPT ---
- History of Present Illness Source: patient Exam Limitations: no limitations Patient Subjective Stated Complaint: Pt states "A couple of days ago I was walking one dog and I was on some ice and the other dog hit my right leg and down I went. I am not sure what I did to my foot or ankle but it is swollen and hurts really bad." Triage Nursing Assessment: Pt alert and oriented X 3, skin pwd. PT able to stand on both legs using a cane but unable to move. Pt able to speak in clear full sentences. Pt right foot and ankle swollen and brusied. CSM X 4 Physician History: Pt is a 63 y/o female that was taking her dogs out during a snow and ice storm. The dogs pulled her on the leash, and she slipped on the ice, and fell. The pt had injury to her R ankle. She hoped it is just a sprain, and tried to care for it at home. As she was not able to take care of the pain anymore and was not able to ambulate, she came to the ER. Occurred: days ago Quality: aching, pressure, throbbing Severity of Pain-Max: moderate Severity of Pain-Current: moderate Modifying Factors: Improves With: immobilization, pain medication, rest Associated Symptoms (Fall): extremity injury Allergies/Adverse Reactions: latex Allergy (Mild, Verified 08/24/15 12:20) Hives lamotrigine [From Lamictal] Adverse Reaction (Severe, Verified 08/24/15 12:22) Lightheadedness Home Medications: Cholecalciferol (Vitamin D3) [Vitamin D3] 50,000 unit PO WEEKLY 04/07/18 [ History] Cilostazol 100 mg [Pletal 100 MG] 100 mg PO BID 04/07/18 [History] Clonazepam 0.5 mg [Klonopin 0.5 MG] 0.5 mg PO HS 04/07/18 [History] Losartan/Hydrochlorothiazide [Losartan-Hctz 50-12.5 mg Tab] 1 each PO DAILY 10/18 [History] Omeprazole 40 mg PO DAILY 04/07/18 [History] Paroxetine HCl 20 mg [Paxil 20 MG] 20 mg PO DAILY 04/07/18 [History] Potassium Chloride 10 Meq Tab* [Klor Con 10 MEQ] 10 meq PO DAILY 04/07/18 [ History] Ranitidine HCl 150 mg PO DAILY 04/07/18 [History] Hx Tetanus, Diphtheria Vaccination/Date Given: Yes Hx Influenza Vaccination/Date Given: Yes Hx Pneumococcal Vaccination/Date Given: No Immunizations Up to Date: Yes - Review of Systems Constitutional: No Fever, No Chills Respiratory: No Cough, No Dyspnea Cardiac: No Chest Pain, No Edema, No Syncope Abdominal/Gastrointestinal: No Abdominal Pain, No Nausea, No Vomiting, No Diarrhea Musculoskeletal: Fall, Injury, Joint Pain, Joint Swelling (Ankle and foot on the right) - Past Medical History Pertinent Past Medical History: Yes Neurological History: No Pertinent History ENT History: No Pertinent History Cardiac History: Hypertension, Other Respiratory History: Bronchitis, COPD, Pneumonia Endocrine Medical History: No Pertinent History Musculoskeletal History: Arthritis, Osteoarthritis, Osteoporosis, Rheumatoid Arthritis GI Medical History: GERD, Hemorrhoids, Other History: Other Psycho-Social History: Other Female Reproductive Disorders: Ovarian Cancer Other Medical History: HX OF MITRAL VALVE PROLAPSE, hep c. BLADDER SLING. TWISTED LOWER BOWEL. IRRATIC THOUGHTS ET DREAMS AT NIGHT. OVARIAN CANCER IN 1983 - Past Surgical History Past Surgical History: Yes Neuro Surgical History: No Pertinent History Cardiac: No Pertinent History Respiratory: No Pertinent History Gastrointestinal: Appendectomy Genitourinary: Other Musculoskeletal: Orthopedic Surgery, Other Female Surgical History: Hysterectomy Other Surgical History: RIGHT KNEE SURGERY. 4 BACK SURGERYS. BLADDER SLING. CADIVER BONE IN LOWER BACK. right foot. esophogeal stretch - Social History Smoking Status: Current every day smoker How long have you smoked: years Exposure to second hand smoke: Yes Drug Use: none Patient Lives Alone: No - Female History Hx Now: No - Nursing Vital Signs Nursing Vital Signs: Initial Vital Signs Temperature 98.2 F 05/25/18 16:12 Pulse Rate 114 H 05/25/18 16:12 Respiratory Rate 20 05/25/18 16:12 Blood Pressure 141/93 05/25/18 16:12 O2 Sat by Pulse Oximetry 97 05/25/18 16:12 Pain Scale Pain Intensity 7 - Physical Exam General Appearance: no apparent distress, alert Head Injury: no evidence of injury Respiratory/Chest Exam: normal breath sounds, No chest tenderness, No respiratory distress Cardiovascular Exam: normal heart sounds, regular rate/rhythm Gastrointestinal Exam: soft, No tenderness, No distention, No guarding, No ecchymosis Extremity Exam: joint swelling, limited range of motion, evidence of injury, pain with movement, swelling, tenderness (R ankle and foot) Neurologic Exam: alert, oriented x 3, cooperative, sensation nml, No motor deficits SpO2: 98 - Radiology Exams Right Ankle X-ray Interpretation: Reviewed by me (5th metatarsal acute fx) Ordered Tests: Active Orders 24 hr Category Date Time Status ANKLE (3 VIEWS) Stat Exams 05/25/18 17:06 Completed FOOT (MINIMUM 3 VIEWS) Stat Exams 05/25/18 17:06 Completed - Progress Progress: unchanged Progress Note: 05/25/18 18:39 I did discuss the pt with Dr Seo, that suggested pt to get a boot, and walker and be seen in the ortho clinic tomorrow at 8:00AM. Pt is agreeable. Will see patient in: office Counseled pt/family regarding: need for follow-up - Departure Time of Disposition: 18:40 Departure Disposition: Home Clinical Impression: Metatarsal bone fracture Condition: Stable Critical Care Time: No Referrals: MARIAJOSE RED MD [Primary Care Provider] - Prescriptions: Hydrocodone/APAP 5-325 Tab^^^ [Haskell 5-325 Tablet^^^] 1 each PO Q4HPRN PRN 5 Days #20 tablet MDD 6 PRN Reason: Pain
[2018-05-25 19:13] VITALS: BP 149/93; O2SAT 94
[2018-05-25 19:25] VITALS: PULSE 86
== END 2018-05-25 19:28 | disposition home or self-care (01) ==
LOC: ED 16:02
DX: S92.301A Fracture of unspecified metatarsal bone(s), right foot, initial encounter for closed fracture (principal); W00.2XXA Other fall from one level to another due to ice and snow, initial encounter; Y93.K1 Activity, walking an animal; M79.89 Other specified soft tissue disorders; J44.9 Chronic obstructive pulmonary disease, unspecified; M06.9 Rheumatoid arthritis, unspecified; M81.0 Age-related osteoporosis without current pathological fracture; M19.90 Unspecified osteoarthritis, unspecified site; Z79.899 Other long term (current) drug therapy; K21.9 Gastro-esophageal reflux disease without esophagitis; Z85.43 Personal history of malignant neoplasm of ovary; Z72.0 Tobacco use
CPT/HCPCS: 73610; 73630; 99284; L4386

== ENCOUNTER 2019-09-26 15:57 | Observation (INO) | payer MEDICARE ==
[2019-09-26] MEDS ORDERED: Sodium Chloride 0.9% 1000 ML 1,000 ML ONE (16:52)
[2019-09-26] MEDS ORDERED: Zofran 4 MG/2 ML VIAL IV PRN (17:00)
[2019-09-26] MEDS ORDERED: Sodium Chloride 0.9% 1000 ML 1,000 ML IV SCH (17:00)
[2019-09-26] MEDS: MORPHINE SULFATE 4 MG INJ IV PRN ×2 (17:12→20:50)
[2019-09-26 17:16] LABS: Hematocrit 37.1 % (35-47); Hemoglobin 12.2 gm/dl (12.0-16.0); Mean Cell Volume 94.9 fl (78-100); Mean Corpuscular Hemoglobin 31.2 pg (26-32); Mean Corpuscular Hgb Concent. 32.9 g/dl (32-36); Mean Platelet Volume 11.2 fl (7.5-11.0); Platelet Count 70 K/mm3 (150-450); Red Blood Count 3.91 M/mm3 (4.1-5.4); Red Cell Distribution Width 14.7 % (11.5-14.0); White Blood Count 3.2 K/mm3 (4.0-10.5)
[2019-09-26 17:23] LABS: ALBUMIN 3.8 g/dL (3.5-5.0); ALKALINE PHOSPHATASE 124 U/L (38-126); AMYLASE 80 U/L (30-110); ANION GAP 9.9 MEQ/L (5-15); BLOOD UREA NITROGEN 20 mg/dL (7-17); CHLORIDE 104 mmol/L (98-107); Calcium 9.5 mg/dL (8.4-10.2); Carbon Dioxide 28 mmol/L (22-30); Creatinine 1 0.76 mg/dL (0.52-1.04); Glucose 116 mg/dL (74-106); LIPASE 142 U/L (23-300); Potassium 3.4 mmol/L (3.5-5.1); SGOT/AST 61 U/L (14-36); SGPT/ALT 33 U/L (0-35); SODIUM 139 mmol/L (137-145); Total Protein 8.3 g/dL (6.3-8.2)
[2019-09-26] MEDS: Sodium Chloride 0.9% 1000 ML 1,000 ML IV SCH (18:02)
[2019-09-26] MEDS ORDERED: APRESOLINE 20 MG/ML INJ IV PRN (18:15)
--- NOTE | 2019-09-26 19:22 | PCM.BN ---
Brief Admission Note - Admission Note Brief Admisson Note: Patient admitted @ 09/26/19 16:05 to [facility]. Medication List reviewed and reconciled. Pt seen by Dr. Wynne and H&P done in his office. Pt had cholecystectomy 3-[address] Behzad Philippe. She is currently c/o 8/10 RLQ pain radiating to R lower back; initially was 10/ 10. Did have some vomiting today. Feeling "gassy." Tried to have BM since admission but was unable to (last BM 2d ago). Did vomit today. Abd is ttp in RUQ>RLQ, soft, BS + but hypoactive, no guarding or rebound. Rest of exam benign. Pt's CT scan results are now in, preliminary, with 2-3mm stone on the R with mild hydronephrosis, perinephric stranding. Dr. Gannon aware; hold HIDA scan for now. Will give flomax and fluids overnight, go ahead and hold blood thinner (start lovenox). If pain persistent in a.m. will contact urology.
[2019-09-26] MEDS ORDERED: Ativan 2 MG/1 ML VIAL IV PRN (19:25)
[2019-09-26] MEDS ORDERED: Mylicon 80MG PO PRN (19:26)
[2019-09-26] MEDS ORDERED: Lactated Ringers 1,000 ML IV SCH (19:30)
[2019-09-26] MEDS ORDERED: PROTONIX 40 MG IV IV SCH (19:30)
--- NOTE | 2019-09-26 19:47 | PCM.NOTE ---
Date and Time: 09/26/191939 Subjective Assessment: Pt seen by Dr. Wynne and H&P done in his office. Pt had cholecystectomy 3-[address] Behzad Philippe. She is currently c/o 8/ RLQ pain radiating to R lower back; initially was 10/ 10. Pt's CT scan results are now in, preliminary, with 2-3mm stone on the R with mild hydronephrosis, perinephric stranding. Dr. Gannon aware; hold HIDA scan for now. Will give flomax and fluids overnight, go ahead and hold blood thinner (start lovenox). If pain persistent in a.m. will contact urology. - Review of Systems Abdominal/Gastrointestinal: Abdominal Pain, Nausea, Vomiting, Diarrhea (prior to cholecystectomy) Genitourinary Symptoms: Dysuria, Hesitancy All Other Systems: Reviewed and Negative Objective Exam General Appearance: moderate distress, alert Neurologic Exam: oriented x 3, cooperative Skin Exam: normal color, warm, dry, No rash Eye Exam: eyes nml inspection Ears, Nose, Throat Exam: moist mucous membranes Neck Exam: normal inspection, non-tender, No lymphadenopathy Respiratory Exam: normal breath sounds, lungs clear, wheezing (faint occ), No crackles/rales, No rhonchi Cardiovascular Exam: regular rate/rhythm, normal heart sounds, No murmur Gastrointestinal/Abdomen Exam: soft, normal bowel sounds, tenderness (RUQ>RLQ ttp), No distention, No mass, No guarding, No rebound Extremity Exam: No pedal edema, No swelling Back Exam: normal inspection, No rash OBJECTIVE DATA Vital Signs: Vital Signs - 24 hr Temp Pulse Resp BP Pulse Ox 09/26/19 16:53 98.0 F 72 18 183/95 95 Pain Assessment - Last Documented Pain Intensity 7 Pain Scale Used 0-10 Pain Scale Intake and Output: Intake & Output 09/24/19 09/25/19 09/26/19 09/27/19 11:59 11:59 11:59 11:59 Intake Total 955 Output Total 100 Balance 855 Weight 63.957 kg Lab Results: Lab Results-Last 24 Hours 09/26/19 09/26/19 Range/Units 17:00 17:00 WBC 3.2 L (4.0-10.5) K/mm3 RBC 3.91 L (4.1-5.4) M/mm3 Hgb 12.2 (12.0-16.0) gm/dl Hct 37.1 (35-47) % MCV 94.9 (78-100) fl MCH 31.2 (26-32) pg MCHC 32.9 (32-36) g/dl RDW 14.7 H (11.5-14.0) % Plt Count 70 L (150-450) K/mm3 MPV 11.2 H (7.5-11.0) fl Sodium 139 (137-145) mmol/L Potassium 3.4 L (3.5-5.1) mmol/L Chloride 104 (98-107) mmol/L Carbon Dioxide 28 (22-30) mmol/L Anion Gap 9.9 (5-15) MEQ/L BUN 20 H (7-17) mg/dL Creatinine 0.76 (0.52-1.04) mg/dL Estimated GFR > 60.0 ML/MIN Glucose 116 H (74-106) mg/dL Calcium 9.5 (8.4-10.2) mg/dL Total Bilirubin 1.50 H (0.2-1.3) mg/dL AST 61 H (14-36) U/L ALT 33 (0-35) U/L Alkaline Phosphatase 124 (38-126) U/L Serum Total Protein 8.3 H (6.3-8.2) g/dL Albumin 3.8 (3.5-5.0) g/dL Amylase 80 (30-110) U/L Lipase 142 (23-300) U/L Radiology Exams: Radiology Procedures Category Date Time Status ABDOMEN AND PELVIS W&WO CONTRA [CT] Routine Exams 09/26/19 16:26 Ordered HIDA-GALL BLADDER [NUCMED] Urgent Exams 09/26/19 17:49 Ordered Assessment/Plan (1) Nephrolithiasis Current Visit: Yes Status: Acute Assessment & Plan: flomax, pain meds. If still having issues tomorrow may need to discuss with urology. (2) COPD (chronic obstructive pulmonary disease) Current Visit: No Status: Acute Onset Date: ~04/07/18 Qualifiers: COPD type: chronic bronchitis (3) Cirrhosis Current Visit: Yes Status: Acute (4) Thrombocytopenia Current Visit: Yes Status: Acute
[2019-09-26 19:54] LABS: Slide Review YES
[2019-09-27] MEDS: Sodium Chloride 0.9% 1000 ML 1,000 ML IV SCH (04:52)
[2019-09-27 05:27] LABS: Absolute Neutrophil Ct (ANC) 1.52 (1.4-6.9); BASOPHIL % 0.3 % (0.0-0.4); Basophil (Absolute #) 0.01 (0-0.4); Eosinophil (Absolute #) 0.03 (0-0.5); Hematocrit 33.5 % (35-47); Hemoglobin 10.7 gm/dl (12.0-16.0); Lymphocyte (Absolute #) 1.05 (1.0-4.6); Lymphocytes % 36.6 % (24.0-44.0); Mean Cell Volume 95.7 fl (78-100); Mean Corpuscular Hemoglobin 30.6 pg (26-32); Mean Corpuscular Hgb Concent. 31.9 g/dl (32-36); Mean Platelet Volume 11.2 fl (7.5-11.0); Monocyte (Absolute #) 0.26 (0.0-1.3); Monocytes % 9.1 % (0.0-12.0); Platelet Count 61 K/mm3 (150-450); Red Cell Distribution Width 14.7 % (11.5-14.0); White Blood Count 2.9 K/mm3 (4.0-10.5)
[2019-09-27 05:53] LABS: ALKALINE PHOSPHATASE 79 U/L (38-126); ANION GAP 7.4 MEQ/L (5-15); BLOOD UREA NITROGEN 15 mg/dL (7-17); CHLORIDE 103 mmol/L (98-107); Calcium 8.6 mg/dL (8.4-10.2); Carbon Dioxide 32 mmol/L (22-30); Creatinine 1 0.84 mg/dL (0.52-1.04); Glucose 88 mg/dL (74-106); Potassium 3.9 mmol/L (3.5-5.1); SGOT/AST 51 U/L (14-36); SGPT/ALT 27 U/L (0-35); SODIUM 138 mmol/L (137-145); Total Protein 6.9 g/dL (6.3-8.2)
[2019-09-27 06:26] LABS: Slide Review 1 YES
[2019-09-27 07:18] VITALS: BP 136/72; PULSE 90
[2019-09-27 08:10] VITALS: O2SAT 91
--- NOTE | 2019-09-27 08:37 | CONS ---
CONSULT DATE: 09/26/2019 HISTORY: The patient is a 64 year-old female had cholecystectomy by Dr. Philippe three weeks or so ago in [place]. She has had lower back pain, nausea, pain right side of her abdomen. Initially she was lead to believe it was right upper quadrant when I came to see her it is a little bit lower right mid abdomen as well as right flank area. PAST MEDICAL HISTORY: She has hepatitis C. She has maybe some early cirrhosis or varices and splenomegaly. She has hypertension. She has chronic back pain, chronic obstructive pulmonary disease, bronchitis, history of pneumonia. PAST SURGICAL HISTORY: She said she had a hysterectomy and appendectomy several years ago. She had cholecystectomy by Dr. Philippe. She had back surgery, knee surgery, eardrum surgery, bladder lift. She had some foot surgery in the past. MEDICATIONS: She has been on Symbicort, DuoNeb, omeprazole, Cilostazol, fluconazole, ProAir HFA, Klor-Con, Paxil, vitamin D3, hydrochlorothiazide/losartan. She had been on some clonazepam in the past but discontinued. ALLERGIES: LAMOTRIGINE. LATEX. FAMILY HISTORY: Lambert syndrome. Chronic lung disease. SOCIAL HISTORY: No alcohol abuse. She smoked in the past. REVIEW OF SYSTEMS: Fourteen systems reviewed. No chest pain or palpitations. Otherwise pertinent for as noted above. PHYSICAL EXAMINATION: GENERAL: A chronically ill female. HEENT: Sclerae nonicteric. Extraocular movements intact. NECK: No JVD. CHEST: Equal excursion, nonlabored breathing. CVS: Regular rhythm and pulse. ABDOMEN: Soft. She has some tenderness over the right flank area, right mid abdomen. No peritoneal signs. EXTREMITIES: No significant edema. NEURO: Alert, moving extremities symmetrically. No gross motor deficits noted. PSYCH: Appropriate mood and affect. LAB DATA AND TESTS: Her bilirubin was 1.5 but again she has history of hepatitis, cirrhosis, white count 3.2, PLT 70,000. CT was reviewed per Dr. Bridger brito. He did have a comparison. He felt she had inflammation on the right kidney, some hydronephrosis and a stone in the proximal ureterovesical junction area, cirrhosis some splenomegaly and splenorenal varices. On my view, she might have a little bit of thickened stomach but it would not decompress so difficult to tell whether normal stomach nondistending. She had some mild gastritis whether appearance from her history of varices. IMPRESSION: A 64 year-old had recent gallbladder per Dr. Philippe. No obvious collections. She does however have some inflammation in her kidney, edema, some hydronephrosis and question of distal ureteral stone at the ureterovesical junction area. This seems very likely to be causing her symptoms as she does not appear to have any free air or any other collections in the abdomen. She said she has already had her appendix out. She had her gallbladder out. No emergent general surgical intervention necessary. As she has been on some Aggrenox as she had some peripheral vascular disease in the past and will hold her Aggrenox in the short term and put her on Lovenox and if she fails to pass this stone soon may very well need transfer for urologic intervention at which time she will likely need platelet correction. Again, no need for general surgical intervention necessary at this time. Hold Aggrenox and could use Lovenox and defer to whether to transfer her now to urology opinion or see if she is able to pass the stone overnight with hydration. I defer for medical management and/or consideration of urology opinion per Dr. Mesa at this time.
--- NOTE | 2019-09-27 08:45 | XRAY ---
Indication: Right upper quadrant pain. Nausea and vomiting. Multiple contiguous axial images obtained through the abdomen and pelvis prior to and following 80 cc Isovue 370 contrast as ordered. Comparison: None Lung bases demonstrates small right lower lobe calcified granuloma. No infiltrate or effusion. Heart is not enlarged. Distal right ureter demonstrates 2-3 mm calculus approximately 1 cm proximal to the UVJ. Proximal right ureter is mildly distended up to 9-10 mm. Right kidney appears edematous with moderate hydronephrosis, perinephric fluid/stranding, and delayed excretion consistent with high grade obstruction. Noncontrasted stomach and bowel loops appear nonobstructed. Reported appendectomy, cholecystectomy, and hysterectomy. Liver demonstrate micro-nodular margins favoring cirrhosis with tiny perihepatic/gallbladder fossa fluid. Spleen is enlarged measuring 14.5 cm with splenorenal varices and periumbilical varices favoring portal hypertension. Remaining pancreas, adrenal glands, left kidney, left ureter, and bladder appear unremarkable. Moderate scattered aortoiliac calcifications. No AAA or pathologic retroperitoneal lymphadenopathy. Osseous structures demonstrate mild osteopenia and mild/moderate multilevel lumbar degenerative spondylosis. Impression: 1. 2-3 mm distal left ureter calculus producing high-grade obstruction as detailed. 2. Cirrhotic liver with subsequent portal hypertension including tiny perihepatic fluid, splenomegaly, splenorenal varices, and periumbilical varices. 3. Incidental right lower lobe calcified granuloma, scattered arteriosclerotic disease, and chronic bony findings.
--- NOTE | 2019-09-27 08:49 | PCM.HP.ADD ---
Addendum to History & Physical - History & Physical Addendum Addendum to History & Physical: This certifies that the History & Physical in the electronic chart reflects the current health status of the patient. If there are changes in the H&P these changes/exceptions are listed as follows.
--- NOTE | 2019-09-27 08:54 | PCM.DS ---
Discharge Summary Date of Admission: 09/26/19 16:05 Admitting Physician: CLARISSE FINCH Consults: Consults on Case 09/26/19 16:26 Consult Surgery ROUTINE Primary Care Provider: MARIAJOSE RED Allergies Allergies latex Allergy (Mild, Verified 08/24/15 12:20) Hives lamotrigine [From Lamictal] Adverse Reaction (Severe, Verified 08/24/15 12:22) [facility] Summary - Hospital Course Hospital Course: Pt seen by Dr. Red; had cholecystectomy 3-[address] Behzad Philippe. Was c/o 02/09 RLQ pain radiating to R lower back. Pt's CT scan showed 2-3mm stone on the R with mild hydronephrosis, perinephric stranding. Dr. Gannon aware; hold HIDA scan for now. Gave flomax and fluids and she passed the stone overnight; sent to lab for evaluation. Pt is denying abd pain now, would like to eat something and go home! Will discharge her to home. I had put pt on lovenox instead of her oral antiplatelet; however her platelets are currently 61 so will have her hold that as well pending further outpatient testing. Will have her f/u with Dr. Red; he would like to see her on Wednesday (in 2d) - I spoke with him. - Vitals & Intake/Output Vital Signs: Vital Signs Temperature 98.8 F 09/27/19 07:13 Pulse Rate 90 09/27/19 07:13 Respiratory Rate 16 09/27/19 07:13 Blood Pressure 136/72 09/27/19 07:13 O2 Sat by Pulse Oximetry 91 L 09/27/19 08:10 Intake & Output: Intake & Output 09/24/19 09/25/19 09/26/19 09/27/19 11:59 11:59 11:59 11:59 Intake Total 2000 Output Total 1150 Balance 851 Weight 63.957 kg - Lab Result Diagrams: 09/27/19 04:37 09/27/19 04:37 Lab Results-Last 24 Hrs: Lab Results-Last 24 Hours 09/26/19 09/26/19 09/27/19 Range/Units 17:00 17:00 04:37 WBC 3.2 L 2.9 L (4.0-10.5) K/mm3 RBC 3.91 L 3.50 L (4.1-5.4) M/mm3 Hgb 12.2 10.7 L (12.0-16.0) gm/dl Hct 37.1 33.5 L (35-47) % MCV 94.9 95.7 (78-100) fl MCH 31.2 30.6 (26-32) pg MCHC 32.9 31.9 L (32-36) g/dl RDW 14.7 H 14.7 H (11.5-14.0) % Plt Count 70 L 61 L (150-450) K/mm3 MPV 11.2 H 11.2 H (7.5-11.0) fl Gran % 53.0 (36.0-66.0) % Eos # (Auto) 0.03 (0-0.5) Absolute Lymphs (auto) 1.05 (1.0-4.6) Absolute Monos (auto) 0.26 (0.0-1.3) Lymphocytes % 36.6 (24.0-44.0) % Monocytes % 9.1 (0.0-12.0) % Eosinophils % 1.0 (0.00-5.0) % Basophils % 0.3 (0.0-0.4) % Absolute Granulocytes 1.52 (1.4-6.9) Basophils # 0.01 (0-0.4) Sodium 139 (137-145) mmol/L Potassium 3.4 L (3.5-5.1) mmol/L Chloride 104 (98-107) mmol/L Carbon Dioxide 28 (22-30) mmol/L Anion Gap 9.9 (5-15) MEQ/L BUN 20 H (7-17) mg/dL Creatinine 0.76 (0.52-1.04) mg/dL Estimated GFR > 60.0 ML/MIN Glucose 116 H (74-106) mg/dL Calcium 9.5 (8.4-10.2) mg/dL Total Bilirubin 1.50 H (0.2-1.3) mg/dL AST 61 H (14-36) U/L ALT 33 (0-35) U/L Alkaline Phosphatase 124 (38-126) U/L Serum Total Protein 8.3 H (6.3-8.2) g/dL Albumin 3.8 (3.5-5.0) g/dL Amylase 80 (30-110) U/L Lipase 142 (23-300) U/L Slides for Path Review YES YES 09/27/19 Range/Units 04:37 WBC (4.0-10.5) K/mm3 RBC (4.1-5.4) M/mm3 Hgb (12.0-16.0) gm/dl Hct (35-47) % MCV (78-100) fl MCH (26-32) pg MCHC (32-36) g/dl RDW (11.5-14.0) % Plt Count (150-450) K/mm3 MPV (7.5-11.0) fl Gran % (36.0-66.0) % Eos # (Auto) (0-0.5) Absolute Lymphs (auto) (1.0-4.6) Absolute Monos (auto) (0.0-1.3) Lymphocytes % (24.0-44.0) % Monocytes % (0.0-12.0) % Eosinophils % (0.00-5.0) % Basophils % (0.0-0.4) % Absolute Granulocytes (1.4-6.9) Basophils # (0-0.4) Sodium 138 (137-145) mmol/L Potassium 3.9 (3.5-5.1) mmol/L Chloride 103 (98-107) mmol/L Carbon Dioxide 32 H (22-30) mmol/L Anion Gap 7.4 (5-15) MEQ/L BUN 15 (7-17) mg/dL Creatinine 0.84 (0.52-1.04) mg/dL Estimated GFR > 60.0 ML/MIN Glucose 88 (74-106) mg/dL Calcium 8.6 (8.4-10.2) mg/dL Total Bilirubin 1.40 H (0.2-1.3) mg/dL AST 51 H (14-36) U/L ALT 27 (0-35) U/L Alkaline Phosphatase 79 (38-126) U/L Serum Total Protein 6.9 (6.3-8.2) g/dL Albumin 3.0 L (3.5-5.0) g/dL Amylase (30-110) U/L Lipase (23-300) U/L Slides for Path Review - Radiology Exams Ordered Rad Exams-Entire Visit: Radiology Procedures Category Date Time Status ABDOMEN AND PELVIS W&WO CONTRA [CT] Routine Exams 09/26/19 22:18 Completed HIDA-GALL BLADDER [NUCMED] Urgent Exams 09/28/19 17:49 Ordered Discharge Exam General Appearance: no apparent distress, alert Neurologic Exam: oriented x 3, cooperative Eye Exam: eyes nml inspection Neck Exam: normal inspection Respiratory Exam: normal breath sounds, lungs clear, No crackles/rales, No rhonchi, No wheezing Cardiovascular Exam: regular rate/rhythm, normal heart sounds, No murmur Gastrointestinal/Abdomen Exam: soft, normal bowel sounds, No tenderness, No distention, No mass, No guarding, No rebound Back Exam: normal inspection, No rash Extremity Exam: normal inspection, No pedal edema, No swelling Skin Exam: normal color, warm, dry, No rash Final Diagnosis/Problem List - Final Discharge Diagnosis/Problem (1) Nephrolithiasis Current Visit: Yes Status: Resolved (2) Thrombocytopenia Current Visit: Yes Status: Chronic Assessment & Plan: Worse today, plt 61, will have her hold her antiplatelet and she will see Dr. Red in 2d, thank you. (3) COPD (chronic obstructive pulmonary disease) Current Visit: No Status: Chronic Onset Date: ~04/07/18 (4) Cirrhosis Current Visit: Yes Status: Acute - Discharge Disposition: Home, Self-Care Condition: Good Prescriptions: New Cephalexin Mh 500 mg [Keflex 500 mg] 500 mg PO QID #24 capsule Continue Ranitidine HCl 150 mg PO DAILY Cilostazol 100 mg [Pletal 100 MG] 100 mg PO BID Cholecalciferol (Vitamin D3) [Vitamin D3] 50,000 unit PO WEEKLY Clonazepam 0.5 mg [Klonopin 0.5 MG] 0.5 mg PO HS Losartan/Hydrochlorothiazide [Losartan-Hctz 50-12.5 mg Tab] 1 each PO DAILY Omeprazole 40 mg PO DAILY Potassium Chloride 10 Meq Tab* [Klor Con 10 MEQ] 10 meq PO DAILY Paroxetine HCl 20 mg [Paxil 20 MG] 20 mg PO DAILY Ondansetron ODT 4 MG [Zofran Odt 4 mg] 4 mg PO Q6H PRN PRN #10 tab.rapdis PRN Reason: Nausea Additional Instructions: HOLD THE PLETAL for at least the next two days, then discuss with Dr. Red. Follow up with: MARIAJOSE RED MD [Primary Care Provider] - 1 Week
[2019-09-27] MEDS ORDERED: ROCEPHIN 1 Gm-D5w 50 ml Bag** 1 G/50 ML IVPB IV SCH (10:00)
[2019-09-27] MEDS ORDERED: Pepcid 20 MG VIAL IV SCH (10:00)
[2019-09-27] MEDS ORDERED: Flomax 0.4 MG PO SCH (10:00)
[2019-09-27] MEDS ORDERED: ENOXAPARIN SODIUM SQ SCH (10:00)
[2019-09-27] MEDS ORDERED: PROTONIX 40 MG IV IV SCH (22:00)
[2019-10-04 12:27] LABS: Calculi Composition See Result Note:
== END 2019-09-27 10:35 | disposition home or self-care (01) ==
LOC: MED SURG 16:05
PROVIDERS: ADMIT Family Medicine; ATTEND Family Medicine
DX: N13.2 Hydronephrosis with renal and ureteral calculous obstruction (principal); N39.0 Urinary tract infection, site not specified; D69.6 Thrombocytopenia, unspecified; K74.60 Unspecified cirrhosis of liver; J44.9 Chronic obstructive pulmonary disease, unspecified; I10 Essential (primary) hypertension; Z79.899 Other long term (current) drug therapy; Z98.890 Other specified postprocedural states
CPT/HCPCS: 36415; 74178; 80053; 82150; 82360; 83690; 85025; 85027; G0378; J0696; J2270; J2405; A9270-GY

== ENCOUNTER 2020-09-19 18:36 | Emergency (ER) | payer MEDICARE ==
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
[2020-09-19] MEDS ORDERED: NORCO 5/325 MG PO ONE (20:25)
[2020-09-19] MEDS ORDERED: NORCO 5/325 MG ONE (20:49)
[2020-09-19 21:09] VITALS: BP 177/95; PULSE 108; O2SAT 96
--- NOTE | 2020-09-20 09:00 | XRAY ---
Indication: Pain and bruising following injury. Comparison: None 3 view right ankle demonstrates soft tissue swelling and mild osteopenia. No other bony, articular, or soft tissue abnormalities. Foot reported separately.
--- NOTE | 2020-09-20 09:02 | XRAY ---
Indication: Pain and bruising following injury. Comparison: May 25, 2008. 2 nonweightbearing views right foot demonstrates new nondisplaced nonangulated acute comminuted fracture mid to distal 5th metatarsal with soft tissue swelling. Incidental old 4th metatarsal head fracture, mild 1st MTP bunion deformity, and osteopenia. Remaining foot unremarkable.
== END 2020-09-19 21:03 | disposition home or self-care (01) ==
LOC: ED 18:36
DX: S92.354A Nondisplaced fracture of fifth metatarsal bone, right foot, initial encounter for closed fracture (principal); V29.3XXA Motorcycle rider (driver) (passenger) injured in unspecified nontraffic accident, initial encounter; Y93.9 Activity, unspecified; Y92.096 Garden or yard of other non-institutional residence as the place of occurrence of the external cause; I10 Essential (primary) hypertension; I25.10 Atherosclerotic heart disease of native coronary artery without angina pectoris; J44.9 Chronic obstructive pulmonary disease, unspecified; M81.0 Age-related osteoporosis without current pathological fracture; M06.9 Rheumatoid arthritis, unspecified; K75.9 Inflammatory liver disease, unspecified; I34.1 Nonrheumatic mitral (valve) prolapse; Z79.899 Other long term (current) drug therapy
CPT/HCPCS: 73610; 73620; 99283; A9270-GY

== ENCOUNTER 2022-06-24 16:07 | Emergency (ER) | payer MEDICARE ==
[2022-06-24] MEDS ORDERED: DUONEB 0.5-3 MG/3 ml Neb IH ONE (16:45)
[2022-06-24] MEDS: DUONEB 0.5-3 MG/3 ml Neb IH ONE (16:46)
[2022-06-24 16:49] LABS: Absolute Neutrophil Ct (ANC) 3.59 x10^3/uL (1.4-6.9); BASOPHIL % 0.4 % (0.0-0.4); Basophil (Absolute #) 0.02 x10^3/uL (0-0.4); Eosinophil % 2.2 % (0.00-5.0); Eosinophil (Absolute #) 0.11 x10^3/uL (0-0.5); Hematocrit 32.5 % (35-47); IMMATURE GRAN # 0.04 x10^3u/L (0.00-0.03); IMMATURE GRAN % 0.8 % (0.00-0.4); Lymphocyte (Absolute #) 0.78 x10^3/uL (1.0-4.6); Lymphocytes % 15.3 % (24.0-44.0); Mean Cell Volume 89.8 fL (78-100); Mean Corpuscular Hemoglobin 27.6 pg (26-32); Mean Corpuscular Hgb Concent. 30.8 g/dL (32-36); Mean Platelet Volume 10.8 fL (7.5-11.0); Monocyte (Absolute #) 0.56 x10^3/uL (0.0-1.3); Neutrophil % 70.3 % (36.0-66.0); Platelet Count 109 x10^3/uL (150-450); Red Blood Count 3.62 x10^6/uL (4.1-5.4); White Blood Count 5.1 x10^3/uL (4.0-10.5)
--- NOTE | 2022-06-24 16:53 | XRAY ---
Indication: Pneumonia. Comparison: April 07, 2018 PA/lateral chest again demonstrates COPD, CIPD, and a few bilateral calcified granulomas. No focal infiltrate, consolidation, or large effusion. Heart not enlarged. Bony thorax intact again with osteopenia. Impression: Continued nonacute chest with chronic features.
[2022-06-24] MEDS ORDERED: solu-MEDROL ONE (17:02)
[2022-06-24] MEDS ORDERED: Sterile H2O 10 ml IJ ONE (17:02)
[2022-06-24] MEDS: solu-MEDROL 125 MG, Sterile H2O 10 ml 2 ML IV ONE ×2 (17:03)
[2022-06-24] MEDS ORDERED: Sodium Chloride 0.9% 1000 ML 1,000 ML ONE (17:03)
[2022-06-24] MEDS: Sodium Chloride 0.9% 1000 ML 1,000 ML IV STA (17:03)
[2022-06-24 17:10] LABS: ALBUMIN 2.9 g/dL (3.5-5.0); ALKALINE PHOSPHATASE 189 U/L (38-126); ANION GAP 6.7 MEQ/L (5-15); BLOOD UREA NITROGEN 19 mg/dL (7-17); CHLORIDE 106 mmol/L (98-107); Calcium 8.9 mg/dL (8.4-10.2); Carbon Dioxide 33 mmol/L (22-30); Creatinine 1 0.58 mg/dL (0.52-1.04); EST GLOMERULAR FILTRATION RATE > 60.0 ML/MIN; Glucose 90 mg/dL (74-106); NT PRO BNPII 324 pg/mL (<300); Potassium 3.8 mmol/L (3.5-5.1); SGOT/AST 105 U/L (14-36); SGPT/ALT 59 U/L (0-35); SODIUM 142 mmol/L (137-145); Total Protein 7.3 g/dL (6.3-8.2)
[2022-06-24 17:39] LABS: INFLUENZA A NEGATIVE (NEGATIVE); INFLUENZA B NEGATIVE (NEGATIVE); RESPIRATORY SYNCTIAL VIRUS NEGATIVE (Negative); SARS-CoV-2 Xpert Express NEGATIVE (NEGATIVE)
--- NOTE | 2022-06-24 17:55 | ERPHSYRPT ---
- History of Present Illness Time Seen by Provider: 06/24/22 16:10 Source: patient Exam Limitations: no limitations Patient Subjective Stated Complaint: Pt reports "I feel like I can't breath and I have been coughing for about 3 weeks. I went to Dr Kelsey's office and he gave me an antibiotic and steroids." Triage Nursing Assessment: Pt alert and oriented x3. Wheeled to ED cot in wheelchair, transfered to cot from chair with assist x1. No apparent respiratory distress. Skin w/p/d. Lung sounds clear in bilat upper lobes, diminished in bilat middle and lower lobes, very fine crackles in bilat lower lobes and wheezing in left middle lobe. Physician History: Here with cough cold congestion. Recently diagnosed with bronchitis. Patient has been on several different antibiotics. History of COPD. Patient states t hat she quit smoking 3 months ago. Otherwise lifetime smoking. No history of chest pain. Very mild shortness of breath without respiratory distress. Wheezing when I walk into the room. Timing/Duration: week(s) Severity: moderate Modifying Factors: Improves With: medication Allergies/Adverse Reactions: latex Allergy (Mild, Verified 06/24/22 16:24) Hives lamotrigine [From Lamictal] Adverse Reaction (Severe, Verified 06/24/22 16:24) Lightheadedness Home Medications: Cholecalciferol (Vitamin D3) [Vitamin D3] 50,000 unit PO WEEKLY 04/07/18 [History] Cilostazol 100 mg [Pletal 100 MG] 100 mg PO BID 04/07/18 [History] Losartan/Hydrochlorothiazide [Losartan-Hctz 50-12.5 mg Tab] 1 each PO DAILY 04/07/18 [History] Paroxetine HCl 20 mg [Paxil 20 MG] 20 mg PO DAILY 04/07/18 [History] Albuterol 2.5 mg/3 ml Neb [Proventil 2.5 mg/3 ml Neb] 2.5 mg IH DAILY PRN 04/14/22 [History] Fluticasone Propionate [Flonase NASAL] 16 gm NS DAILY 04/14/22 [History] Isosorbide Mononitrate 30 mg [Imdur 30 MG] 30 mg PO DAILY 04/14/22 [History] Metoprolol Tartrate 25 mg [Lopressor 25MG Tab] 25 mg DAILY 04/14/22 [History] Milk Thistle 150 mg PO DAILY 04/14/22 [History] Pregabalin 50 mg [Lyrica 50MG] 100 mg PO BID 04/14/22 [History] Hx Tetanus, Diphtheria Vaccination/Date Given: No Hx Influenza Vaccination/Date Given: Yes Hx Pneumococcal Vaccination/Date Given: No Travel Risk - International Travel Have you traveled outside of the country in past 3 weeks: No - Coronavirus Screening Are you exhibiting any of the following symptoms?: Yes Symptoms: Cough: New Onset, Vomiting/Diarrhea, Headaches/Body Aches/Fatigue Close contact with a COVID-19 positive Pt in past 14-21 Days: No - Vaccine Status Have you recieved a Covid-19 vaccination: Yes Senior Web Services Developer: [employer] - Vaccination Dates Date of 2cond Vaccination (if applicable): n/a - Review of Systems Constitutional: No Fever, No Chills Eyes: No Symptoms Ears, Nose, & Throat: No Symptoms Respiratory: Cough, Dyspnea, Wheezing Cardiac: No Chest Pain, No Edema, No Syncope Abdominal/Gastrointestinal: No Abdominal Pain, No Nausea, No Vomiting, No Diarrhea Genitourinary Symptoms: No Dysuria Musculoskeletal: No Back Pain, No Neck Pain Skin: No Rash Neurological: No Dizziness, No Focal Weakness, No Sensory Changes Psychological: No Symptoms Endocrine: No Symptoms All Other Systems: Reviewed and Negative - Past Medical History Pertinent Past Medical History: Yes Neurological History: No Pertinent History ENT History: Cataracts Cardiac History: Arrhythmia, Coronary Artery Disease, Hypertension, Other Respiratory History: Bronchitis, COPD, Pneumonia Endocrine Medical History: Diabetes Type II, Liver Disease Musculoskeletal History: Arthritis, Osteoarthritis, Osteoporosis, Rheumatoid Arthritis GI Medical History: GERD, Gallbladder Disease, Hemorrhoids, Hepatitis, Other History: No Pertinent History Psycho-Social History: Depression Female Reproductive Disorders: No Pertinent History Other Medical History: HX OF MITRAL VALVE PROLAPSE, hep c. BLADDER SLING. TWISTED LOWER BOWEL. IRRATIC THOUGHTS ET DREAMS AT NIGHT. OVARIAN CANCER IN 1983,bilgram 3%. osteomylitis first digit right foot - Past Surgical History Past Surgical History: Yes Neuro Surgical History: No Pertinent History Cardiac: No Pertinent History Respiratory: No Pertinent History Gastrointestinal: Appendectomy Genitourinary: Other Musculoskeletal: Orthopedic Surgery, Other Female Surgical History: Hysterectomy Other Surgical History: RIGHT KNEE SURGERY Gall bladder. 4 BACK SURGERYS. BLADDER SLING. CADIVER BONE IN LOWER BACK. right foot. esophogeal stretch - Social History Smoking Status: Former smoker How long have you smoked: years Exposure to second hand smoke: Yes Drug Use: none Patient Lives Alone: Yes - Nursing Vital Signs Nursing Vital Signs: Initial Vital Signs Temperature 98.1 F 06/24/22 16:18 Pulse Rate 115 H 06/24/22 16:18 Respiratory Rate 28 H 06/24/22 16:18 Blood Pressure 146/78 06/24/22 16:18 O2 Sat by Pulse Oximetry 96 06/24/22 16:18 Pain Scale Pain Intensity 0 - Physical Exam General Appearance: no apparent distress, alert Eye Exam: PERRL/EOMI, eyes nml inspection Ears, Nose, Throat Exam: normal ENT inspection, TMs normal, pharynx normal, moist mucous membranes Neck Exam: normal inspection, non-tender, supple, full range of motion Respiratory Exam: wheezing, No respiratory distress Cardiovascular Exam: regular rate/rhythm, normal heart sounds, normal peripheral pulses Gastrointestinal/Abdomen Exam: soft, normal bowel sounds, No tenderness, No mass Back Exam: normal inspection, normal range of motion, No CVA tenderness, No vertebral tenderness Extremity Exam: normal inspection, normal range of motion, pelvis stable Neurologic Exam: alert, oriented x 3, cooperative, normal mood/affect, nml cerebellar function, nml station & gait, sensation nml, No motor deficits Skin Exam: normal color, warm, dry, No rash Lymphatic Exam: No adenopathy SpO2: 92 - Course Nursing assessment & vital signs reviewed: Yes Ordered Tests: Active Orders 24 hr Category Date Time Status IV Insertion STAT Care 06/24/22 16:35 Active Pulse Oximetry (ED) STAT Care 06/24/22 16:35 Active CHEST 2 VIEWS (PA AND LAT) Stat Exams 06/24/22 16:49 Completed CBC W DIFF Stat Lab 06/24/22 16:25 Completed CMP Stat Lab 06/24/22 16:25 Completed NT PRO BNPII Stat Lab 06/24/22 16:25 Completed TROPONIN Q4H Lab 06/24/22 16:25 Completed TROPONIN Q4H Lab 06/24/22 20:45 Ordered TROPONIN Q4H Lab 06/25/22 00:45 Ordered Respiratory Therapy Assessment DAILY RT 06/24/22 16:49 Active Medication Summary Discontinued Medications Generic Name Dose Route Start Last Admin Trade Name Patrick PRN Reason Stop Dose Admin Albuterol/Ipratropium 3 ml 06/24/22 16:35 06/24/22 16:46 Ipratropium/Albuterol Sulfate 3 Ml Ampul.Neb IH 06/24/22 16:36 3 ml STAT ONE Administration Albuterol/Ipratropium Confirm 06/24/22 16:45 Ipratropium/Albuterol Sulfate 3 Ml Ampul.Neb Administered 06/24/22 16:46 Dose 3 ml IH .STK-MED ONE Methylprednisolone Sodium 0 mg 06/24/22 16:35 06/24/22 17:03 Succinate 125 mg/ Sterile IV 06/24/22 16:36 125 mg Water 2 ml STAT ONE Administration Sodium Chloride 1,000 mls @ 999 mls/hr 06/24/22 16:35 06/24/22 17:03 Sodium Chloride 0.9% 1000 Ml IV 06/24/22 17:35 999 mls/hr .Q1H1M STA Administration Sodium Chloride Confirm 06/24/22 17:03 Sodium Chloride 0.9% 1000 Ml Administered 06/24/22 17:04 Dose 1,000 mls @ ud .ROUTE .STK-MED ONE Methylprednisolone Sodium Succinate Confirm 06/24/22 17:02 Methylprednis Sod Succ 125 Mg/2 Ml Vial Administered 06/24/22 17:03 Dose 125 mg .ROUTE .STK-MED ONE Sterile Water Confirm 06/24/22 17:02 Water For Injection,Sterile 10 Ml Vial Administered 06/24/22 17:03 Dose 10 ml IJ .STK-MED ONE Lab/Rad Data: Laboratory Result Diagrams 06/24/22 16:25 06/24/22 16:25 Laboratory Results 06/24/22 06/24/22 06/24/22 Range/Units 17:00 16:25 16:25 WBC (4.0-10.5) x10^3/uL RBC (4.1-5.4) x10^6/uL Hgb (12.0-16.0) g/dL Hct (35-47) % MCV (78-100) fL MCH (26-32) pg MCHC (32-36) g/dL RDW (11.5-14.0) % Plt Count (150-450) x10^3/uL MPV (7.5-11.0) fL Gran % (36.0-66.0) % Immature Gran % (Auto) (0.00-0.4) % Nucleat RBC Rel Count (0.00-0.1) % Eos # (Auto) (0-0.5) x10^3/uL Immature Gran # (Auto) (0.00-0.03) x10^3u/L Absolute Lymphs (auto) (1.0-4.6) x10^3/uL Absolute Monos (auto) (0.0-1.3) x10^3/uL Absolute Nucleated RBC (0.00-0.01) x10^3u/L Lymphocytes % (24.0-44.0) % Monocytes % (0.0-12.0) % Eosinophils % (0.00-5.0) % Basophils % (0.0-0.4) % Absolute Granulocytes (1.4-6.9) x10^3/uL Basophils # (0-0.4) x10^3/uL Sodium 142 (137-145) mmol/L Potassium 3.8 (3.5-5.1) mmol/L Chloride 106 (98-107) mmol/L Carbon Dioxide 33 H (22-30) mmol/L Anion Gap 6.7 (5-15) MEQ/L BUN 19 H (7-17) mg/dL Creatinine 0.58 (0.52-1.04) mg/dL Estimated GFR > 60.0 ML/MIN Glucose 90 (74-106) mg/dL Calcium 8.9 (8.4-10.2) mg/dL Total Bilirubin 1.20 (0.2-1.3) mg/dL AST 105 H (14-36) U/L ALT 59 H (0-35) U/L Alkaline Phosphatase 189 H (38-126) U/L Troponin I < 0.012 (0.000-0.034) ng/mL NT-Pro-B Natriuret Pep 324 (<300) pg/mL Serum Total Protein 7.3 (6.3-8.2) g/dL Albumin 2.9 L (3.5-5.0) g/dL Influenza Type A Ag NEGATIVE (NEGATIVE) Influenza Type B Ag NEGATIVE (NEGATIVE) RSV (PCR) NEGATIVE (Negative) SARS-CoV-2 (PCR) NEGATIVE (NEGATIVE) 06/24/22 Range/Units 16:25 WBC 5.1 (4.0-10.5) x10^3/uL RBC 3.62 L (4.1-5.4) x10^6/uL Hgb 10.0 L (12.0-16.0) g/dL Hct 32.5 L (35-47) % MCV 89.8 (78-100) fL MCH 27.6 (26-32) pg MCHC 30.8 L (32-36) g/dL RDW 17.0 H (11.5-14.0) % Plt Count 109 L (150-450) x10^3/uL MPV 10.8 (7.5-11.0) fL Gran % 70.3 H (36.0-66.0) % Immature Gran % (Auto) 0.8 H (0.00-0.4) % Nucleat RBC Rel Count 0.0 (0.00-0.1) % Eos # (Auto) 0.11 (0-0.5) x10^3/uL Immature Gran # (Auto) 0.04 H (0.00-0.03) x10^3u/L Absolute Lymphs (auto) 0.78 L (1.0-4.6) x10^3/uL Absolute Monos (auto) 0.56 (0.0-1.3) x10^3/uL Absolute Nucleated RBC 0.00 (0.00-0.01) x10^3u/L Lymphocytes % 15.3 L (24.0-44.0) % Monocytes % 11.0 (0.0-12.0) % Eosinophils % 2.2 (0.00-5.0) % Basophils % 0.4 (0.0-0.4) % Absolute Granulocytes 3.59 (1.4-6.9) x10^3/uL Basophils # 0.02 (0-0.4) x10^3/uL Sodium (137-145) mmol/L Potassium (3.5-5.1) mmol/L Chloride (98-107) mmol/L Carbon Dioxide (22-30) mmol/L Anion Gap (5-15) MEQ/L BUN (7-17) mg/dL Creatinine (0.52-1.04) mg/dL Estimated GFR ML/MIN Glucose (74-106) mg/dL Calcium (8.4-10.2) mg/dL Total Bilirubin (0.2-1.3) mg/dL AST (14-36) U/L ALT (0-35) U/L Alkaline Phosphatase (38-126) U/L Troponin I (0.000-0.034) ng/mL NT-Pro-B Natriuret Pep (<300) pg/mL Serum Total Protein (6.3-8.2) g/dL Albumin (3.5-5.0) g/dL Influenza Type A Ag (NEGATIVE) Influenza Type B Ag (NEGATIVE) RSV (PCR) (Negative) SARS-CoV-2 (PCR) (NEGATIVE) - Progress Progress: improved Progress Note: 06/24/22 18:03 differential diagnosis includes: PNA, other infection, musculoskeletal pain, pneumothorax - We'll obtain basic labs, fluids, troponin, chest x-ray - I feel comfortable with one time negative troponin given symptoms have improved and started greater then 6 hours ago. - O2 saturations consistently greater than 95%. - CXR shows no pneumonia, pneumothorax - my read - no other obvious lab abnormalities Work-up negative as above. Most likely bronchitis or COPD exacerbation given patient's symptoms. Plan for discharge home at this point in time. Patient may return here sooner for new or changing symptoms. We will give patient a butyryl, antibiotics. Patient states that she already has steroids at home. Counseled pt/family regarding: lab results, diagnosis, need for follow-up, rad results - Departure Departure Disposition: Home Clinical Impression: Acute bronchitis Condition: Stable Critical Care Time: No Referrals: PO KELSEY [Primary Care Provider] - Follow up/PCP as directed Instructions: Acute Bronchitis, Adult (DC), Cough, Adult (DC) Prescriptions: Albuterol Common Canister [Ventolin Common Canister] 2 puff IH BID 20 Days #20 Azithromycin 250 mg [Zithromax 250 MG TABLET] 250 mg PO ZPACK #6 tablet
[2022-06-24 17:59] VITALS: BP 146/71; PULSE 114
[2022-06-24 18:07] VITALS: O2SAT 92
== END 2022-06-24 18:19 | disposition home or self-care (01) ==
LOC: ED 16:07
DX: J20.9 Acute bronchitis, unspecified (principal); R05.9 Cough, unspecified; R09.81 Nasal congestion; J44.9 Chronic obstructive pulmonary disease, unspecified; E11.9 Type 2 diabetes mellitus without complications; I10 Essential (primary) hypertension; Z79.02 Long term (current) use of antithrombotics/antiplatelets; Z79.52 Long term (current) use of systemic steroids; Z79.899 Other long term (current) drug therapy; Z20.828 Contact with and (suspected) exposure to other viral communicable diseases
CPT/HCPCS: 0241U; 36000; 36415; 71046; 80053; 83880; 84484; 85025; 94640; 94760; 96360; 96374; 99284; J2930; A9270-GY

== ENCOUNTER 2022-07-07 12:08 | Day surgery (SDC) | payer MEDICARE ==
[~2022-07-07 12:08] MED LIST: Marcaine Mpf 0.5% Vial 30 Ml ONE; XYLOCAINE 1% HCL 20 ML MDV ONE
[2022-07-07] MEDS ORDERED: CEFAZOLIN 2 GM-D5W BAG** 2 GM/50 ML ML IV SCH (13:00)
[2022-07-07] MEDS ORDERED: Lactated Ringers 1,000 ML IV SCH (13:00)
[2022-07-07 13:39] LABS: ANION GAP 6.1 MEQ/L (5-15); BLOOD UREA NITROGEN 17 mg/dL (7-17); CHLORIDE 104 mmol/L (98-107); Carbon Dioxide 35 mmol/L (22-30); Creatinine 1 0.66 mg/dL (0.52-1.04); EST GLOMERULAR FILTRATION RATE > 60.0 ML/MIN; Glucose 103 mg/dL (74-106); Potassium 3.4 mmol/L (3.5-5.1); SODIUM 141 mmol/L (137-145)
[2022-07-07] MEDS ORDERED: DIPRIVAN 200 MG/20 ML IV ONE (14:59)
[2022-07-07] MEDS ORDERED: Versed 2 MG/2 ML Injection ONE (14:59)
[2022-07-07] MEDS ORDERED: SUBLIMAZE 100 MCG/2 ML ONE (14:59)
[2022-07-07] MEDS ORDERED: Xylocaine-Mpf 2% 5 Ml Vial ONE (14:59)
[2022-07-07] MEDS ORDERED: Lactated Ringers 1,000 ML IV ONE (15:17)
[2022-07-07] MEDS ORDERED: Sodium Chloride 0.9% 1000 ML 1,000 ML ONE (15:47)
[2022-07-07] MEDS ORDERED: TRANDATE 20 MG/4 ML SYRINGE IV ONE (16:26)
--- NOTE | 2022-07-07 16:52 | XRAY ---
Indication: Right 3rd toe amputation. Intraoperative fluoroscopy provided for 2 seconds. Single digital spot image submitted for interpretation demonstrates complete 3rd toe amputation. Correlate with intraoperative findings/report.
[2022-07-07 17:15] VITALS: BP 124/89; PULSE 102; O2SAT 93
--- NOTE | 2022-07-08 08:32 | OP ---
SURGERY DATE/TIME: 07/07/2022 1511 PREOPERATIVE DIAGNOSES: 1) Osteomyelitis right third toe distal phalanx. 2) Pain right foot. POSTOPERATIVE DIAGNOSES: 1) Osteomyelitis right third toe distal phalanx. 2) Pain right foot. PROCEDURE: Amputation open of the third digit at metatarsophalangeal joint with disarticulation. SURGEON: Eladio Alcala DPM. [employer] P[employer]CH [employer]IL[employer] OPERATOR HELPER: None. ANESTHESIA: Monitored anesthesia care with intraoperative local block. HEMOSTASIS: Pressure dressing. ESTIMATED BLOOD LOSS: Less than 5 cc. MATERIALS: 3-0 Nylon. INJECTABLES: 30 cc of a 1:1 mixture of 1% lidocaine plain and 0.5% bupivacaine plain injected in a metatarsal block-type fashion. INDICATION FOR SURGERY: Jennie is a very pleasant 67-year-old female who presented to my office back in April for pain to the third digit. The patient had a significant amount of pain with callous and a positive probe to bone. On top of that x-rays were taken demonstrating some corticolysis of the distal phalanx of the third digit. At this time the patient was sent for clearance for surgical intervention and was lost to follow up for short period of time. However, the patient's pain had increased associated with the pain and infection seem to have worsened over the course of the last few months and patient presents to my office this week. At this time the patient is interested in proceeding with the amputation. The patient understands that there are no guarantees as to the outcome of surgical intervention at this time. The patient understands that there is a possible risk of continued infection, hematoma, seroma, possibility of delayed wound healing, nonwound healing and possible need for surgical intervention at a later date. The patient understands all of this and wishes to proceed. DESCRIPTION OF PROCEDURE AND FINDINGS: The patient is brought into the OR and placed and placed on the OR table in the supine position. At this time monitored anesthesia care was administered until the patient was sedated. A local block was performed at this time consisting of 30 cc of a 1:1 mixture of 1% lidocaine plain and 0.5% bupivacaine plain this was injected in a metatarsal block-type fashion surrounding the third metatarsal. Following this the right foot was prepped and draped in the typical sterile fashion and lowered onto the surgical field. At this time a skin marker was utilized to make a vertical fish mouth incision over the dorsal and plantar aspect of the third digit. The incision was made down to the level of bone utilizing a 15 blade and made circumferential around the third digit. Following this disarticulation of the third digit was performed. Copious amounts of irrigation were performed with use of Bactisure in order to kill any of the bacteria in the wound which was then flushed with an additional liter of sterile saline. Following this, simple interrupted sutures were performed at the plantar and dorsal aspect of the surgical site. The central aspect of the wound was then opened for draining of the infection. Following this, copious amounts of sterile saline were utilized to irrigate the wound once again and a dressing consisting of Betadine, Adaptic, 4x4, Kerlix and RICA was applied to the right foot with minimal compression. The patient then was reversed from anesthesia and returned to the postoperative anesthesia care unit with vital signs stable and vascular status intact. The patient handled the anesthesia as well as the procedure without significant complication. Postoperative orders as indicated in the patient's discharge chart.
== END 2022-07-07 17:40 | disposition home or self-care (01) ==
LOC: SDC 12:08
PROVIDERS: ATTEND Podiatrist Foot & Ankle Surgery
DX: M86.8X7 Other osteomyelitis, ankle and foot (principal); M79.671 Pain in right foot
CPT/HCPCS: 36415; 73620; 76000; 80048; 87046; 87070; 87075; 87116; 87205; 87206; 93005; J0690; J2250; J2704; J3010

== ENCOUNTER 2022-07-10 07:18 | Day surgery (SDC) | payer MEDICARE ==
[2022-07-10] MEDS ORDERED: Lactated Ringers 1,000 ML IV SCH (07:30)
[2022-07-10] MEDS ORDERED: CEFAZOLIN 2 GM-D5W BAG** 2 GM/50 ML ML IV SCH (08:00)
[2022-07-10] MEDS ORDERED: Marcaine Mpf 0.5% Vial 30 Ml ONE (09:43)
[2022-07-10] MEDS ORDERED: XYLOCAINE 1% HCL 20 ML MDV ONE (09:44)
[2022-07-10] MEDS ORDERED: Xylocaine-Mpf 2% 5 Ml Vial ONE (09:53)
[2022-07-10] MEDS ORDERED: DIPRIVAN 200 MG/20 ML IV ONE (09:53)
[2022-07-10] MEDS ORDERED: SUBLIMAZE 100 MCG/2 ML ONE (09:54)
[2022-07-10] MEDS ORDERED: Versed 2 MG/2 ML Injection ONE (09:54)
[2022-07-10] MEDS ORDERED: Lactated Ringers 1,000 ML IV ONE (10:36)
[2022-07-10 12:07] VITALS: BP 161/97; PULSE 103; O2SAT 96
--- NOTE | 2022-07-10 14:01 | OP ---
SURGERY DATE/TIME: 07/10/2022 1003 PREOPERATIVE DIAGNOSES: 1) Diabetic foot wound. 2) Osteomyelitis. 3) Pain right foot. POSTOPERATIVE DIAGNOSES: 1) Diabetic foot wound. 2) Osteomyelitis. 3) Pain right foot. PROCEDURES: 1) Incision and drainage to right foot wound. 2) Delayed primary closure, complex closure. SURGEON: Eladio Alcala DPM. REMOTE RECRUITER: None. ANESTHESIA: Monitored anesthesia care with a preoperative local block consisting of 20 cc of 1:1 mixture of 1% lidocaine plain and 0.5% bupivacaine plain. HEMOSTASIS: Pressure dressing. ESTIMATED BLOOD LOSS: Less than 5 cc. MATERIALS: 3-0 Nylon, 4-0 Monocryl. INJECTABLES: 20 cc of 1:1 mixture of 1% lidocaine plain and 0.5% bupivacaine plain. INDICATION FOR SURGERY: The patient was seen in my service for osteomyelitic toe to the third digit this was amputated approximately four days ago. The patient has made significant improvement in eradicating soft tissue infection and has had an amputation of the distal phalanx of the third digit at this time which is two joints distal from where the amputation site is. At this point the patient shows no residual signs of infection to the surgical site and wishes to proceed with delayed primary closure. The patient understands all risks, complications and benefits of surgical intervention at this time including but not limited to infection, hematoma, seroma, possibility of delayed wound healing or nonwound healing and possibility of need for surgical intervention at a later date. The patient understands that there are no guarantees provided as to the outcome of surgery. It is with that we decided to proceed. DESCRIPTION OF PROCEDURE AND FINDINGS: The patient is brought into the OR and placed on the OR table in the supine position. At this time monitored anesthesia care was administered until the patient was sedated. At this time a 20 cc injection consisting of a 1:1 mixture of 1% lidocaine plain and 0.5% bupivacaine plain was injected in a metatarsal block-type fashion to the right foot. The right foot was then prepped and draped and lowered onto the surgical field. At this time attention was directed to the wound where the lateral edges of the wound base were dissected utilizing a 15 blade. Healthy bleeding was encountered. All nonviable necrotic tissue was removed from the surgical site. Following this, copious amounts of sterile saline were utilized to flush the surgical site. Layered closure was then performed utilizing 4-0 Monocryl in a simple buried interrupted-type fashion and then a simple interrupted-type fashion to the surgical site in a simple interrupted-type fashion with 3-0 Nylon. The patient was then reversed from anesthesia and returned to the postoperative anesthesia care unit after placing a dressing consisting of Betadine, Adaptic, 4x4, Kerlix and RICA to the right foot under minimal compression. The patient handled the anesthesia as well as the procedure without significant complication. Postoperative orders as indicated in the patient's discharge chart.
== END 2022-07-10 12:10 | disposition home or self-care (01) ==
LOC: SDC 07:18
PROVIDERS: ATTEND Podiatrist Foot & Ankle Surgery
DX: E11.69 Type 2 diabetes mellitus with other specified complication (principal); M86.9 Osteomyelitis, unspecified; M79.671 Pain in right foot
CPT/HCPCS: 82947; J0690; J2250; J2704; J3010

== ENCOUNTER 2022-08-25 09:57 | Observation (INO) | payer MEDICARE ==
[2022-08-25] MEDS ORDERED: CEFAZOLIN 2 GM-D5W BAG** 2 GM/50 ML ML IV ONE (10:18)
[2022-08-25] MEDS ORDERED: Lactated Ringers 1,000 ML IV ONE (10:18)
[2022-08-25] MEDS ORDERED: XYLOCAINE 1% HCL 20 ML MDV ONE (10:54)
[2022-08-25] MEDS ORDERED: Marcaine Mpf 0.5% Vial 30 Ml ONE (10:54)
[2022-08-25] MEDS ORDERED: Pepcid 20 MG VIAL IV ONE ×2 (11:19→11:22)
[2022-08-25] MEDS ORDERED: Reglan 10 MG/2 ML ONE (11:22)
[2022-08-25] MEDS ORDERED: Reglan 10 MG/2 ML IV ONE (11:28)
[2022-08-25] MEDS: Lactated Ringers 1,000 ML IV SCH ×2 (11:29→19:29)
[2022-08-25 11:30] LABS: INFLUENZA A NEGATIVE (NEGATIVE); INFLUENZA B NEGATIVE (NEGATIVE); RESPIRATORY SYNCTIAL VIRUS NEGATIVE (NEGATIVE); SARS-CoV-2 Xpert Express NEGATIVE (NEGATIVE)
[2022-08-25] MEDS ORDERED: CEFAZOLIN 2 GM-D5W BAG** 2 GM/50 ML ML IV SCH (11:30)
[2022-08-25] MEDS ORDERED: Reglan 10 MG PO SCH (11:30)
[2022-08-25] MEDS ORDERED: Xylocaine-Mpf 2% 5 Ml Vial ONE (12:18)
[2022-08-25] MEDS ORDERED: DIPRIVAN 200 MG/20 ML IV ONE (12:18)
[2022-08-25] MEDS ORDERED: SUBLIMAZE 100 MCG/2 ML ONE (12:18)
[2022-08-25 12:22] LABS: Hematocrit 29.6 % (35-47); Hemoglobin 8.9 g/dL (12.0-16.0); Mean Cell Volume 86.8 fL (78-100); Mean Corpuscular Hemoglobin 26.1 pg (26-32); Mean Corpuscular Hgb Concent. 30.1 g/dL (32-36); Mean Platelet Volume 11.5 fL (7.5-11.0); Platelet Count 67 x10^3/uL (150-450); Red Blood Count 3.41 x10^6/uL (4.1-5.4); Red Cell Distribution Width 17.6 % (11.5-14.0); White Blood Count 2.1 x10^3/uL (4.0-10.5)
[2022-08-25 12:37] LABS: ALBUMIN 2.8 g/dL (3.5-5.0); ALKALINE PHOSPHATASE 216 U/L (38-126); ANION GAP 5.9 MEQ/L (5-15); BLOOD UREA NITROGEN 12 mg/dL (7-17); CHLORIDE 103 mmol/L (98-107); Calcium 8.1 mg/dL (8.4-10.2); Carbon Dioxide 34 mmol/L (22-30); Creatinine 1 0.74 mg/dL (0.52-1.04); EST GLOMERULAR FILTRATION RATE > 60.0 ML/MIN; Glucose 104 mg/dL (74-106); Potassium 3.3 mmol/L (3.5-5.1); SGOT/AST 105 U/L (14-36); SGPT/ALT 44 U/L (0-35); SODIUM 140 mmol/L (137-145); Total Protein 7.1 g/dL (6.3-8.2)
[2022-08-25 12:38] LABS: INR 1.21 (0.8-3.0)
[2022-08-25] MEDS ORDERED: Versed 2 MG/2 ML Injection ONE (13:12)
[2022-08-25 13:39] LABS: ANISOCYTOSIS 1+; Lymphocytes 30 % (24-44); Monocyte 5 % (0.0-12.0); Neutrophils 65 % (36.0-66.0); Platelet Estimate INCREASED (NORMAL); Total Cells Counted 100
--- NOTE | 2022-08-25 14:30 | XRAY ---
Indication: Resection right 3rd metatarsal. Intraoperative fluoroscopy provided for 16 seconds. 2 digital spot images submitted for interpretation demonstrates partial amputation mid to distal 3rd metatarsal. Correlate with intraoperative findings/report.
--- NOTE | 2022-08-25 15:22 | OP ---
SURGERY DATE/TIME: 08/25/2022 1308 PREOPERATIVE DIAGNOSES: 1) Osteomyelitis right third metatarsal. 2) Foot infection 3) Methicillin-resistant Staphylococcus aureus. 4) Chronic nonhealing wound. 5) Pain right foot. POSTOPERATIVE DIAGNOSES: 1) Osteomyelitis right third metatarsal. 2) Foot infection 3) Methicillin-resistant Staphylococcus aureus. 4) Chronic nonhealing wound. 5) Pain right foot. PROCEDURE: Incision and drainage with bone debridement right foot left open. SURGEON: Eladio Alcala DPM. FREIGHT RATE ANALYST: None. HEMOSTASIS: Pressure dressing. ESTIMATED BLOOD LOSS: Less than 5 cc. MATERIALS: 0.25 inch Iodoform packing, 3-0 Nylon, Bactisure. ANESTHESIA: MAC plus a local. See injectables for details. INJECTABLES: 20 cc of a 1:1 mixture of 1% lidocaine plain and 0.5% bupivacaine plain injected in a metatarsal block-type fashion to the right foot. INDICATION FOR SURGERY: Jennie is a pleasant 67-year-old female who is well known to my service for osteomyelitis of the third digit which was addressed several months ago. At this time the patient has indicated that she never ended up taking the outpatient antibiotic and has had recurrent issue with a nonhealing wound. This was attempted to be treated in clinic without success. Cultures were taken demonstrating methicillin-resistant Staphylococcus aureus infection. At this time the patient understands based on x-rays that there is a higher indication that there is osteomyelitis. From that standpoint we have decided to proceed with a partial internal metatarsal amputation with bone debridement as well as incision and drainage, admission following the procedure and IV antibiotic therapy in order to eliminate the possibility of this extending further. The patient understands all risks, complications and benefits of the procedure were explained to the patient including but not limited to infection, hematoma, seroma, possibility of delayed wound healing, nonwound healing, possibility of failure of surgical intervention and need for surgical intervention at a later date. It is with that we decided to proceed. DESCRIPTION OF PROCEDURE AND FINDINGS: The patient is brought into the OR and placed on the OR table in supine position. At this time monitored anesthesia care was administered until the patient was sedated. The right lower extremity was prepped and draped in the typical sterile fashion and lowered onto the surgical field. At this time a 20 cc block of a 1:1 mixture of 1% lidocaine plain and 0.5% bupivacaine plain were injected in a metatarsal block to the third metatarsal of the right foot. Following this a 15 blade was utilized to make an incision straight down to the level of the third metatarsal bone through the open wound. At this time both edges of the wound were incised demonstrating healthy bleeding edges. This wound was then deepened along the fascial planes being careful not to damage any significant neurovascular structures along the way. At this time an 18 blade on sagittal saw was utilized to resect from the mid diaphysis of the metatarsal distally from that point this was checked on multiple views of fluoroscopy and deemed to be adequate. The debridement was carried out to the proximal aspect of the bone in the intramedullary space this was handed off the field and sent for pathologic and soft tissue cultures. Methicillin-resistant Staphylococcus aureus was cultured initially. Bactisure was then utilized to flush the surgical site extensively and then 3 liters of sterile saline were then utilized to flush the surgical site. 3-0 Nylon was utilized in a trauma-type stitch fashion to slightly coapt the distal and proximal aspects of the wound. Iodine soaked Iodoform packing was then packed into the site under minimal tension. A dressing consisting of Betadine, Adaptic, 4x4, Kerlix, ABD and RICA was then applied to the right foot. The patient was reversed from anesthesia and returned to the postoperative anesthesia care unit with vital signs stable and vascular status intact. The patient handled the procedure as well as the anesthesia without significant complication. Postoperative orders as indicated in the patient's discharge chart.
[2022-08-25] MEDS ORDERED: MEDICATION INTERVENTION MC SCH (17:00)
[2022-08-25] MEDS: Ecotrin 325 MG PO SCH (17:18)
[2022-08-25] MEDS: VANCOMYCIN 1 GRAM/200 ML BAG 1 GM/200 ML PIGGYBACK IV SCH (17:18)
[2022-08-25] MEDS: Glucophage 500 MG PO SCH (17:18)
[2022-08-25] MEDS: Hydromorphone 1 mg/ml Injection IV PRN (17:18)
[2022-08-25] MEDS: Paxil 20 MG PO SCH (17:18)
[2022-08-25] MEDS: NORCO 7.5/325 MG TAB PO PRN (18:14)
[2022-08-25] MEDS: Nicoderm CQ 21 MG TOP SCH (21:48)
[2022-08-25] MEDS: Klor Con PO SCH (21:48)
[2022-08-25] MEDS: Pletal 100 MG PO SCH (21:49)
[2022-08-25] MEDS ORDERED: NON-FORMULARY ITEM (Potassium Chloride [Klor-Con 10] 10 MEQ Tablet.Er) PO SCH (22:00)
[2022-08-26] MEDS: NORCO 5/325 MG PO PRN (03:57)
[2022-08-26 08:03] LABS: Hematocrit 28.3 % (35-47); Hemoglobin 8.2 g/dL (12.0-16.0); Mean Cell Volume 89.6 fL (78-100); Mean Corpuscular Hemoglobin 25.9 pg (26-32); Mean Platelet Volume 10.1 fL (7.5-11.0); Platelet Count 55 x10^3/uL (150-450); Red Blood Count 3.16 x10^6/uL (4.1-5.4); Red Cell Distribution Width 17.5 % (11.5-14.0); White Blood Count 2.2 x10^3/uL (4.0-10.5)
[2022-08-26 08:15] LABS: ALBUMIN 2.5 g/dL (3.5-5.0); ALKALINE PHOSPHATASE 164 U/L (38-126); ANION GAP 6.6 MEQ/L (5-15); BLOOD UREA NITROGEN 16 mg/dL (7-17); CHLORIDE 103 mmol/L (98-107); Calcium 7.9 mg/dL (8.4-10.2); Carbon Dioxide 34 mmol/L (22-30); Creatinine 1 0.84 mg/dL (0.52-1.04); EST GLOMERULAR FILTRATION RATE > 60.0 ML/MIN; Glucose 134 mg/dL (74-106); Potassium 3.5 mmol/L (3.5-5.1); SGOT/AST 94 U/L (14-36); SGPT/ALT 37 U/L (0-35); SODIUM 141 mmol/L (137-145); Total Protein 6.6 g/dL (6.3-8.2)
[2022-08-26] MEDS: Glucophage 500 MG PO SCH ×2 (08:27→17:11)
[2022-08-26] MEDS: Cozaar 50 MG PO SCH (09:16)
[2022-08-26] MEDS: Pletal 100 MG PO SCH ×2 (09:16→21:38)
[2022-08-26] MEDS: Imdur 30 MG PO SCH (09:17)
[2022-08-26] MEDS: Paxil 20 MG PO SCH (09:17)
[2022-08-26] MEDS: Klor Con PO SCH ×2 (09:17→21:38)
[2022-08-26] MEDS: hydroDIURIL 25 MG PO SCH (09:17)
[2022-08-26] MEDS: Ecotrin 325 MG PO SCH (09:17)
[2022-08-26] MEDS ORDERED: Lasix 20 MG/2 ML IV PRN (09:24)
[2022-08-26] MEDS: NORCO 7.5/325 MG TAB PO PRN ×2 (09:59→14:37)
[2022-08-26] MEDS ORDERED: NON-FORMULARY ITEM (Losartan/Hydrochlorothiazide [Losartan-Hctz 50-12.5 Mg Tab] 1 EACH Tab PO SCH (10:00)
[2022-08-26] MEDS ORDERED: MILK THISTLE 150 MG PO SCH (10:00)
[2022-08-26 10:16] LABS: RETICULOCYTE % 1.9 % (0.6-2.6); RETICULOCYTE HEMOGLOBIN 26.4 pg (28-38)
[2022-08-26 11:35] LABS: Folate (Folic Acid) 17.5 ng/mL (2.76 - >20)
[2022-08-26 11:42] LABS: ABO TYPING O; Antibody Screen NEGATIVE (NEGATIVE); RH TYPING POSITIVE
[2022-08-26 11:46] LABS: CROSS MATCH (PRBC) COMPATIBLE (COMPATIBLE)
[2022-08-26] MEDS: VANCOMYCIN 1 GRAM/200 ML BAG 1 GM/200 ML PIGGYBACK IV SCH (12:38)
[2022-08-26 12:53] LABS: Iron 51 ug/dL (37-170); Iron Saturation 19 % (20-39); TIBC 264 ug/dL (265-462)
[2022-08-26 14:05] LABS: Slide Review YES
[2022-08-26] MEDS ORDERED: Sodium Chloride 0.9% 500 ML 500 ML IV ONE (14:07)
--- NOTE | 2022-08-26 17:00 | PCM.NOTE ---
Date and Time: 08/26/221653 Subjective Assessment: POD #1 s/p bone debridment with incision and drainage, seen at bedside this AM with some pain. Denies consitutional symptoms of infection. Physical Exam - Narrative Narrative Physical Exam: Podiatry Physical Exam OBJECTIVE DATA Vital Signs: Vital Signs - 24 hr Temp Pulse Resp BP Pulse Ox 08/26/22 16:00 97.1 F 113 H 16 143/71 98 08/26/22 13:22 94 L 08/26/22 11:38 97.1 F 113 H 16 133/64 98 08/26/22 07:48 96.5 F 104 H 16 130/60 96 08/26/22 04:00 98.1 F 110 H 18 105/64 96 08/26/22 00:00 97.0 F 92 H 24 123/58 98 08/25/22 20:00 97.3 F 95 H 22 131/75 99 Pain Assessment - Last Documented Pain Intensity 8 Pain Scale Used 0-10 Pain Scale Intake and Output: Intake & Output 08/24/22 08/25/22 08/26/22 08/27/22 11:59 11:59 11:59 11:59 Intake Total 1571 Output Total 400 Balance 1171 Weight 63.5 kg 65.9 kg Lab Results: Lab Results-Last 24 Hours 08/25/22 08/26/22 08/26/22 Range/Units 21:56 07:29 07:56 WBC 2.2 L (4.0-10.5) x10^3/uL RBC 3.16 L (4.1-5.4) x10^6/uL Hgb 8.2 L (12.0-16.0) g/dL Hct 28.3 L (35-47) % MCV 89.6 (78-100) fL MCH 25.9 L (26-32) pg MCHC 29.0 L (32-36) g/dL RDW 17.5 H (11.5-14.0) % Plt Count 55 L (150-450) x10^3/uL MPV 10.1 (7.5-11.0) fL Reticulocyte % (Auto) (0.6-2.6) % Retic Hgb Content (28-38) pg Sodium (137-145) mmol/L Potassium (3.5-5.1) mmol/L Chloride (98-107) mmol/L Carbon Dioxide (22-30) mmol/L Anion Gap (5-15) MEQ/L BUN (7-17) mg/dL Creatinine (0.52-1.04) mg/dL Estimated GFR ML/MIN Glucose (74-106) mg/dL POC Glucometer 128 H 134 H (74 to 106) mg/dL Calcium (8.4-10.2) mg/dL Iron (37-170) ug/dL TIBC (265-462) ug/dL Iron Saturation (20-39) % Total Bilirubin (0.2-1.3) mg/dL AST (14-36) U/L ALT (0-35) U/L Alkaline Phosphatase (38-126) U/L Serum Total Protein (6.3-8.2) g/dL Albumin (3.5-5.0) g/dL Vitamin B12 (239-931) pg/mL Folic Acid (2.76 - >20) ng/mL Slides for Path Review YES ABO Group Rh Factor Antibody Screen (NEGATIVE) Crossmatch (COMPATIBLE) 08/26/22 08/26/22 08/26/22 Range/Units 07:56 10:10 10:10 WBC (4.0-10.5) x10^3/uL RBC (4.1-5.4) x10^6/uL Hgb (12.0-16.0) g/dL Hct (35-47) % MCV (78-100) fL MCH (26-32) pg MCHC (32-36) g/dL RDW (11.5-14.0) % Plt Count (150-450) x10^3/uL MPV (7.5-11.0) fL Reticulocyte % (Auto) 1.9 (0.6-2.6) % Retic Hgb Content 26.4 L (28-38) pg Sodium 141 (137-145) mmol/L Potassium 3.5 (3.5-5.1) mmol/L Chloride 103 (98-107) mmol/L Carbon Dioxide 34 H (22-30) mmol/L Anion Gap 6.6 (5-15) MEQ/L BUN 16 (7-17) mg/dL Creatinine 0.84 (0.52-1.04) mg/dL Estimated GFR > 60.0 ML/MIN Glucose 134 H (74-106) mg/dL POC Glucometer (74 to 106) mg/dL Calcium 7.9 L (8.4-10.2) mg/dL Iron (37-170) ug/dL TIBC (265-462) ug/dL Iron Saturation (20-39) % Total Bilirubin 1.30 (0.2-1.3) mg/dL AST 94 H (14-36) U/L ALT 37 H (0-35) U/L Alkaline Phosphatase 164 H (38-126) U/L Serum Total Protein 6.6 (6.3-8.2) g/dL Albumin 2.5 L (3.5-5.0) g/dL Vitamin B12 (239-931) pg/mL Folic Acid (2.76 - >20) ng/mL Slides for Path Review ABO Group O Rh Factor POSITIVE Antibody Screen NEGATIVE (NEGATIVE) Crossmatch COMPATIBLE (COMPATIBLE) 08/26/22 08/26/22 08/26/22 Range/Units 10:10 10:10 11:08 WBC (4.0-10.5) x10^3/uL RBC (4.1-5.4) x10^6/uL Hgb (12.0-16.0) g/dL Hct (35-47) % MCV (78-100) fL MCH (26-32) pg MCHC (32-36) g/dL RDW (11.5-14.0) % Plt Count (150-450) x10^3/uL MPV (7.5-11.0) fL Reticulocyte % (Auto) (0.6-2.6) % Retic Hgb Content (28-38) pg Sodium (137-145) mmol/L Potassium (3.5-5.1) mmol/L Chloride (98-107) mmol/L Carbon Dioxide (22-30) mmol/L Anion Gap (5-15) MEQ/L BUN (7-17) mg/dL Creatinine (0.52-1.04) mg/dL Estimated GFR ML/MIN Glucose (74-106) mg/dL POC Glucometer 162 H (74 to 106) mg/dL Calcium (8.4-10.2) mg/dL Iron 51 (37-170) ug/dL TIBC 264 L (265-462) ug/dL Iron Saturation 19 L (20-39) % Total Bilirubin (0.2-1.3) mg/dL AST (14-36) U/L ALT (0-35) U/L Alkaline Phosphatase (38-126) U/L Serum Total Protein (6.3-8.2) g/dL Albumin (3.5-5.0) g/dL Vitamin B12 826 (239-931) pg/mL Folic Acid 17.5 (2.76 - >20) ng/mL Slides for Path Review ABO Group Rh Factor Antibody Screen (NEGATIVE) Crossmatch (COMPATIBLE) 08/26/22 Range/Units 16:36 WBC (4.0-10.5) x10^3/uL RBC (4.1-5.4) x10^6/uL Hgb (12.0-16.0) g/dL Hct (35-47) % MCV (78-100) fL MCH (26-32) pg MCHC (32-36) g/dL RDW (11.5-14.0) % Plt Count (150-450) x10^3/uL MPV (7.5-11.0) fL Reticulocyte % (Auto) (0.6-2.6) % Retic Hgb Content (28-38) pg Sodium (137-145) mmol/L Potassium (3.5-5.1) mmol/L Chloride (98-107) mmol/L Carbon Dioxide (22-30) mmol/L Anion Gap (5-15) MEQ/L BUN (7-17) mg/dL Creatinine (0.52-1.04) mg/dL Estimated GFR ML/MIN Glucose (74-106) mg/dL POC Glucometer 116 H (74 to 106) mg/dL Calcium (8.4-10.2) mg/dL Iron (37-170) ug/dL TIBC (265-462) ug/dL Iron Saturation (20-39) % Total Bilirubin (0.2-1.3) mg/dL AST (14-36) U/L ALT (0-35) U/L Alkaline Phosphatase (38-126) U/L Serum Total Protein (6.3-8.2) g/dL Albumin (3.5-5.0) g/dL Vitamin B12 (239-931) pg/mL Folic Acid (2.76 - >20) ng/mL Slides for Path Review ABO Group Rh Factor Antibody Screen (NEGATIVE) Crossmatch (COMPATIBLE) Radiology Exams: Radiology Procedures Category Date Time Status FLUOROSCOPY UP TO 1 HR Routine Exams 08/25/22 12:03 Completed FOOT (MINIMUM 3 VIEWS) Routine Exams 08/25/22 12:03 Completed PICC LINE PLACEMENT Urgent Exams 08/27/22 13:00 Ordered Multi-Disciplinary Progress Notes: Multi-Disciplinary Progress Notes 08/26/22 12:07 Case Management Note by Anali Wayne WHEEL[facility]IR [facility] [employer]. PATIENT REPORTS SHE HAS USED A WHEELCHAIR IN THE PAST AND WAS ABLE TO PROPEL HERSELF. SHE ALSO REPORTS SHE WILL BE ABLE TO GET AROUND HER APT IN A WHEELCHAIR WELL. THIS WILL BE DELIVERED TO [facility] PRIOR TO DC Initialized on 08/26/22 12:07 - END OF NOTE 08/26/22 11:26 Case Management Note by Anali Wayne S/W JOSÉ MIGUEL ABOUT PLANS FOR PATIENT- HE PLANS TO TAKE HER BACK TO OR ON WEDNESDAY THEN WILL LIKELY DC HOME. PATIENT WILL NEED OTPT IV ANTIBIOTICS AND DRESSING CHANGES. PATIENT PREFERS TO DO THESE OUPT HER INSURANCE WILL NOT COVER HOME IV ANTIBIOTICS. SHE REPORTS SHE WILL HAVE TRANSPORTATION. WILL PLAN TO SET PATIENT UP WITH OUTPT IV INFUSIONS AND DRESSING CHANGES. WILL ALSO SEND IN FOR A WHEELCHAIR PATIENT LIVES ALONE AND THIS WILL HELP HER MAINTAIN NONWT BEARING WITH [employer] Initialized on 08/26/22 11:26 - END OF NOTE Assessment/Plan (1) Osteomyelitis Current Visit: Yes Status: Acute Assessment & Plan: Patient examination and evaluation Radiographs reviewed demonstrating resection of 3rd metatarsal Awaiting bone culture and path however historic growth over last 2 weeks of MRSA with failure of outpatient therapy PICC line insertion planned IV abx Vancomycin Pharmacy to dose. Continue WBCs low. Plan for hematology consult of D/c Plan for Delayed primary closure on Wednesday with repeat bone debridment. Code(s): M86.9 - OSTEOMYELITIS, UNSPECIFIED (2) MRSA (methicillin resistant staph aureus) culture positive Current Visit: Yes Status: Acute Code(s): Z22.322 - CARRIER OR SUSPECTED CARRIER OF METHICILLIN RESIS STAPH (3) PVD (peripheral vascular disease) Current Visit: Yes Status: Acute Code(s): I73.9 - PERIPHERAL VASCULAR DISEASE, UNSPECIFIED (4) COPD (chronic obstructive pulmonary disease) Current Visit: No Status: Chronic Onset Date: ~04/07/18
[2022-08-26 17:48] LABS: Hematocrit 32.6 % (35-47); Hemoglobin 9.7 g/dL (12.0-16.0)
[2022-08-26] MEDS: Lactated Ringers 1,000 ML IV SCH (18:48)
[2022-08-26] MEDS: Nicoderm CQ 21 MG TOP SCH (21:38)
[2022-08-26] MEDS: MAALOX ES 30 ML UNIT DOSE PO PRN (22:26)
[2022-08-27] MEDS: VANCOMYCIN 1 GRAM/200 ML BAG 1 GM/200 ML PIGGYBACK IV SCH (05:00)
[2022-08-27 05:16] LABS: IFOB TEST RESULTS NEGATIVE (NEGATIVE)
[2022-08-27] MEDS: Hydromorphone 1 mg/ml Injection IV PRN (06:55)
[2022-08-27 08:04] LABS: INR 1.1 (0.8-3.0); PROTIME 11.9 SECONDS (9.4-12.5); PTT 31.3 SECONDS (25.1-36.5)
[2022-08-27] MEDS: Glucophage 500 MG PO SCH ×2 (08:29→19:04)
[2022-08-27] MEDS: NORCO 7.5/325 MG TAB PO PRN (10:56)
[2022-08-27] MEDS: Pletal 100 MG PO SCH ×2 (11:09→21:53)
[2022-08-27] MEDS: Imdur 30 MG PO SCH (11:10)
[2022-08-27] MEDS: hydroDIURIL 25 MG PO SCH (11:10)
[2022-08-27] MEDS: Paxil 20 MG PO SCH (11:10)
[2022-08-27] MEDS: Cozaar 50 MG PO SCH (11:10)
[2022-08-27] MEDS: Klor Con PO SCH ×2 (11:10→21:53)
--- NOTE | 2022-08-27 11:47 | XRAY ---
Indication: Ultrasound guidance for PICC line placement. Initial sonographic imaging of the left upper extremity was performed for localization of patent veins. A patent basilic vein identified above the elbow. Ultrasound guidance was then used for PICC line insertion. Full PICC line insertion is reported separately.
--- NOTE | 2022-08-27 11:49 | XRAY ---
Indication: Long-term IV access and therapy for right foot osteomyelitis. Informed consent obtained. Patient was placed on the fluoroscopic table in a supine position. Initial sonographic imaging of the right upper extremity was performed for localization of patent veins. The right upper extremity was then prepped and draped in sterile fashion. Tourniquet applied. 1% lidocaine plain used for local anesthesia. Using ultrasound guidance and a micropuncture needle, a basilic vein above the elbow was successfully percutaneously cannulized. A floppy tip 0.018 guidewire inserted. Tourniquet released. Needle was exchanged for a 5 [place] dilator peel-away sheath catheter. Ultimately a 5 [place] double-lumen PICC line was inserted over a longer 0.018 guidewire with the tip positioned in the distal SVC using fluoroscopic guidance. Guidewire removed. Both ports flushed with heparinized saline. Catheter was secured. Postoperative instructions and orders given. Patient discharged in good condition. Impression: Technically successful right upper extremity PICC line placement using ultrasound and fluoroscopic guidance. No immediate complications. Approximately 2 cc blood loss. Approximately 0.4 minute of fluoroscopy used. Catheter length is 42 cm.
[2022-08-27] MEDS ORDERED: Zofran 4 MG/2 ML VIAL IV PRN (13:31)
[2022-08-27] MEDS: MAALOX ES 30 ML UNIT DOSE PO PRN (13:57)
[2022-08-27] MEDS: Lactated Ringers 1,000 ML IV SCH (15:41)
--- NOTE | 2022-08-27 16:06 | PCM.NOTE ---
Date and Time: 08/27/22 1605 Subjective Assessment: POD #2 s/p bone debridment with incision and drainage, seen at chairside this PM with improved pain. Denies consitutional symptoms of infection. Physical Exam - Narrative Narrative Physical Exam: Podiatry Physical Exam OBJECTIVE DATA Vital Signs: Vital Signs - 24 hr Temp Pulse Resp BP Pulse Ox 08/27/22 12:00 97.9 F 118 H 17 155/80 92 L 08/27/22 08:00 96.8 F 115 H 17 133/67 93 L 08/27/22 07:45 93 L 08/27/22 04:00 97.4 F 117 H 22 137/82 93 L 08/26/22 23:45 97.8 F 92 H 20 170/77 93 L 08/26/22 20:00 97.8 F 101 H 22 128/66 93 L 08/26/22 19:03 93 L Pain Assessment - Last Documented Pain Intensity 9 Pain Scale Used 0-10 Pain Scale Intake and Output: Intake & Output 08/25/22 08/26/22 08/27/22 08/28/22 11:59 11:59 11:59 11:59 Intake Total 1571 2492 Output Total 400 700 Balance 1171 1792 Weight 63.5 kg 65.9 kg Lab Results: Lab Results-Last 24 Hours 08/25/22 08/26/22 08/26/22 Range/Units 12:17 05:11 16:36 Hgb (12.0-16.0) g/dL Hct (35-47) % Smear Path Review PT (9.4-12.5) SECONDS INR (0.8-3.0) APTT (25.1-36.5) SECONDS POC Glucometer 116 H (74 to 106) mg/dL Stl Occult Blood (IFOB) NEGATIVE (NEGATIVE) 08/26/22 08/26/22 08/27/22 Range/Units 17:40 21:07 07:40 Hgb 9.7 L (12.0-16.0) g/dL Hct 32.6 L (35-47) % Smear Path Review PT 11.9 (9.4-12.5) SECONDS INR 1.10 (0.8-3.0) APTT 31.3 (25.1-36.5) SECONDS POC Glucometer 107 H (74 to 106) mg/dL Stl Occult Blood (IFOB) (NEGATIVE) Radiology Exams: Radiology Procedures Category Date Time Status GUIDE FOR VASCULAR ACCESS [US] Routine Exams 08/27/22 09:42 Completed PICC LINE PLACEMENT Urgent Exams 08/27/22 13:00 Completed Multi-Disciplinary Progress Notes: Multi-Disciplinary Progress Notes 08/27/22 15:02 Case Management Note by Marcelle Blanc CALLED FROM [employer] AND PER THE PT'S INSURANCE THEY WILL NOT BE ALLOWED TO CARE FOR PT'S PICC LINE. THEY CAN NOT DO INFUSIONS, FLUSH IT, DRAW FROM IT, OR DO DRESSING CHANGES. DID SPEAK WITH LINDY, THE NURSE THAT MANAGES THIS PATIENT, AND SHE VERIFIED THAT THIS INFORMATION IS ACCURATE. THEY CAN CONTINUE TO SEE PATIENT FOR WOUND CARE OF THE FOOT/COPD WHICH IS WHAT THEY WERE SEEING HER FOR BEFORE, BUT THEY AGAIN ARE UNABLE TO DO ANY CARE/USE R/T PICC LINE. THAT WILL NEED TO BE MANAGED ANOTHER WAY. IE: 'S OFFICE, ER, OR OUTPATIENT SERVICES. Initialized on 08/27/22 15:02 - END OF NOTE Assessment/Plan (1) Osteomyelitis Current Visit: Yes Status: Acute Assessment & Plan: Patient examination and evaluation Radiographs reviewed demonstrating resection of 3rd metatarsal IV abx vancomycin for now. Transition to Cubicin 400 mg QD for 21 days PICC line insertion planned WBCs low. Plan for hematology consult of D/c. Pancytopenia on peripheral blood smear. Plan for Delayed primary closure on Wednesday with repeat bone debridment. Code(s): M86.9 - OSTEOMYELITIS, UNSPECIFIED (2) MRSA (methicillin resistant staph aureus) culture positive Current Visit: Yes Status: Acute Code(s): Z22.322 - CARRIER OR SUSPECTED CARRIER OF METHICILLIN RESIS STAPH (3) PVD (peripheral vascular disease) Current Visit: Yes Status: Acute Code(s): I73.9 - PERIPHERAL VASCULAR DISEASE, UNSPECIFIED (4) COPD (chronic obstructive pulmonary disease) Current Visit: No Status: Chronic Onset Date: ~04/07/18
[2022-08-27] MEDS ORDERED: Hydromorphone 1 mg/ml Injection IV PRN (17:27)
[2022-08-27] MEDS ORDERED: ENALAPRILAT 2.5 MG INJECTION IV SCH (17:30)
[2022-08-27] MEDS: Protonix 20MG Tablet PO SCH (21:01)
[2022-08-27] MEDS: Nicoderm CQ 21 MG TOP SCH (21:53)
[2022-08-27] MEDS ORDERED: TROUGH DRUG LEVELS IJ ONE (23:30)
[2022-08-28 05:41] LABS: Hemoglobin 9.6 g/dL (12.0-16.0); Mean Cell Volume 88.3 fL (78-100); Mean Corpuscular Hemoglobin 27.4 pg (26-32); Mean Platelet Volume 11.8 fL (7.5-11.0); Platelet Count 67 x10^3/uL (150-450); Red Blood Count 3.51 x10^6/uL (4.1-5.4); Red Cell Distribution Width 17.5 % (11.5-14.0)
[2022-08-28 05:56] LABS: ANION GAP 3.4 MEQ/L (5-15); BLOOD UREA NITROGEN 19 mg/dL (7-17); CHLORIDE 101 mmol/L (98-107); Calcium 8.2 mg/dL (8.4-10.2); Carbon Dioxide 36 mmol/L (22-30); Creatinine 1 0.67 mg/dL (0.52-1.04); EST GLOMERULAR FILTRATION RATE > 60.0 ML/MIN; Glucose 115 mg/dL (74-106); Potassium 3.9 mmol/L (3.5-5.1); SODIUM 137 mmol/L (137-145)
[2022-08-28 07:07] LABS: Slide Review YES
[2022-08-28] MEDS ORDERED: DIPRIVAN 200 MG/20 ML IV ONE ×2 (08:07→09:16)
[2022-08-28] MEDS ORDERED: Versed 2 MG/2 ML Injection ONE (08:07)
[2022-08-28] MEDS: Glucophage 500 MG PO SCH ×2 (08:39→18:11)
[2022-08-28] MEDS ORDERED: Hydromorphone 1 mg/ml Injection ONE (09:50)
--- NOTE | 2022-08-28 09:50 | XRAY ---
Indication: Right foot bone debridement. Intraoperative fluoroscopy provided for 6 seconds. 4 digital spot images submitted for interpretation demonstrates complete amputation 3rd toe and mid to distal 3rd metatarsal. Correlate with intraoperative findings/report.
[2022-08-28] MEDS ORDERED: SODIUM CHLORIDE FLUSH IV SCH (10:00)
[2022-08-28] MEDS ORDERED: DAPTOMYCIN IV SCH (10:00)
[2022-08-28] MEDS ORDERED: MOTRIN 600 MG PO PRN (11:14)
[2022-08-28] MEDS: Pletal 100 MG PO SCH ×2 (11:17→22:16)
[2022-08-28] MEDS: Ecotrin 325 MG PO SCH (11:17)
[2022-08-28] MEDS: Klor Con PO SCH ×2 (11:17→22:17)
[2022-08-28] MEDS: hydroDIURIL 25 MG PO SCH (11:17)
[2022-08-28] MEDS: Imdur 30 MG PO SCH (11:17)
[2022-08-28] MEDS: Protonix 20MG Tablet PO SCH ×2 (11:18→22:17)
[2022-08-28] MEDS: Paxil 20 MG PO SCH (11:18)
[2022-08-28] MEDS: Cozaar 50 MG PO SCH (11:18)
--- NOTE | 2022-08-28 12:08 | OP ---
SURGERY DATE/TIME: 08/28/2022 0914 PREOPERATIVE DIAGNOSES: 1) Osteomyelitis right foot third metatarsal. 2) Diabetes mellitus. 3) Peripheral vascular disease. 4) Chronic nonhealing wound. 5) Noncompliance with postoperative course. 6) Methicillin-resistant Staphylococcus aureus infection. POSTOPERATIVE DIAGNOSES: 1) Osteomyelitis right foot third metatarsal. 2) Diabetes mellitus. 3) Peripheral vascular disease. 4) Chronic nonhealing wound. 5) Noncompliance with postoperative course. 6) Methicillin-resistant Staphylococcus aureus infection. PROCEDURES: 1) Repeat incision and drainage with bone debridement right foot. 2) Delayed complex closure right foot. SURGEON: Eladio Alcala DPM. PEDIATRIC OCCUPATIONAL THERAPIST: None. HEMOSTASIS: Pressure dressing. ESTIMATED BLOOD LOSS: Less than 10 cc. MATERIALS: 4-0 Monocryl, 3-0 Nylon, one suture guard and 2-0 Nylon. INJECTABLES: 16 cc of a 1:1 mixture of 1% lidocaine plain and 0.5% bupivacaine plain. INDICATION FOR SURGERY: Jennie is a pleasant 67-year-old female who underwent a third digit amputation after a longstanding history of osteomyelitis to the toe. The patient was very long to get cardiac clearance prior to the first surgery and refused to have the procedure done under local. From that standpoint the third digital amputation went on without complication. However, there were some issues with healing of the wound. When asked, the patient failed to take her outpatient antibiotics. At this time we are two months since the third digit amputation with a recurrence and resistant methicillin-resistant Staphylococcus aureus infection which has not been responsive to p.o. antibiotics. At this time the patient has already had a resection with bone debridement of the right foot third metatarsal earlier this week and unresponsive to IV antibiotics. Currently clinically there does not appear to be any residual signs of infection and the decision was made at this time to proceed with incision and drainage with bone debridement and delayed primary closure. The patient understands all risks, complications and benefits of surgical intervention at this time including but not limited to infection, hematoma, seroma, possibility of delayed wound healing, nonwound healing, possibility of recurrent infection and possible need for surgical intervention at a later date. Given the patients comorbidities, she understands that this could lead to further loss of limb and potential loss of life if not treated. The patient understands these risks. Plenty of time was allowed to ask questions which were apparently answered to the patients satisfaction. It is with that we decided to proceed. DESCRIPTION OF PROCEDURE AND FINDINGS: The patient is brought into the OR and placed on the OR table in the supine position. At this time monitored anesthesia care was administered until the patient was sedated. The right lower extremity was prepped and draped in the typical sterile fashion and lowered onto the surgical field. At this time a 16 cc block of a 1:1 mixture of 1% lidocaine plain and 0.5% bupivacaine plain was injected in a metatarsal block-type fashion to the right foot. Following this stitches were removed from the central portion of this incision. The incision was explored utilizing a 15 blade on the edges to make sure that there is a healthy bleeding edge which was apparent. The remaining necrotic margins of the wound revealed healthy bleeding granular tissue beneath. From that standpoint copious amounts of sterile saline were utilized to flush the surgical site. A further resection of the third metatarsal was performed for clean margins for pathology this was handed off the field for pathologic assessment and permanent. At this time closure of the wound was performed utilizing 4-0 Monocryl for subcutaneous tissue in simple buried-type fashion and 3-0 Nylon for horizontal mattress for everting the skin edges. For releasing some of the tension on the wound itself, a suture guard was utilized with 2-0 Nylon in a vertical mattress-type fashion to keep the tension off of the wound edges. A dressing consisting of Betadine, Adaptic, 4x4, Kerlix and RICA was then applied to the patient's right foot. The patient was returned to the postoperative anesthesia care unit with vital signs stable and vascular status intact. The patient handled the anesthesia as well as the procedure without significant complication. Postoperative orders as indicated in the patient's discharge chart.
[2022-08-28] MEDS ORDERED: PROVENTIL 2.5 MG/3 ML NEB IH ONE (12:21)
[2022-08-28] MEDS ORDERED: PROVENTIL 2.5 MG/3 ML NEB IH PRN (12:28)
[2022-08-28] MEDS ORDERED: Xylocaine 1% Vial 30 ML PF IJ ONE (12:48)
[2022-08-28] MEDS ORDERED: Lactated Ringers 1,000 ML IV ONE (12:48)
[2022-08-28] MEDS ORDERED: Marcaine Mpf 0.5% Vial 30 Ml ONE (12:48)
[2022-08-28] MEDS: NORCO 7.5/325 MG TAB PO PRN (18:15)
[2022-08-28 19:50] VITALS: BP 128/58
[2022-08-28] MEDS: Lactated Ringers 1,000 ML IV SCH (20:19)
[2022-08-28 21:37] VITALS: PULSE 130; O2SAT 89
[2022-08-28] MEDS: Nicoderm CQ 21 MG TOP SCH (22:16)
[2022-08-28] MEDS: NORCO 5/325 MG PO PRN (22:17)
--- NOTE | 2022-08-30 19:04 | XRAY ---
6 seconds of fluoroscopy was used in surgery for a right foot bone debridement.
== END 2022-08-28 22:25 | disposition home or self-care (01) ==
LOC: MED SURG 09:57 → INTOOBSV 09:57
PROVIDERS: ADMIT Family Medicine; ATTEND Family Medicine
DX: M86.9 Osteomyelitis, unspecified (principal); A49.02 Methicillin resistant Staphylococcus aureus infection, unspecified site; S91.301A Unspecified open wound, right foot, initial encounter; M79.671 Pain in right foot; E11.621 Type 2 diabetes mellitus with foot ulcer; I73.9 Peripheral vascular disease, unspecified; J44.9 Chronic obstructive pulmonary disease, unspecified; Z91.148 Patient's other noncompliance with medication regimen for other reason; Z79.899 Other long term (current) drug therapy; Z20.828 Contact with and (suspected) exposure to other viral communicable diseases
CPT/HCPCS: 0241U; 13160; 28005; 29580; 36415; 36573; 73620; 73630; 76000; 76937; 77001; 80048; 80053; 82550; 82607; 82746; 82947; 83540; 83550; 85014; 85018; 85027; 85045; 85046; 85610; 85730; 86850; 86900; 86901; 86922; 93005; 94640; 94760; 97161; 97530; 99024; G0328; G0378; 82274; 88304; 88305; 88311; A6260; C1769; J0690; J0878; J1170; J1642; J1940; J2001; J2250; J2405; J2704; J3010; J7609; A9270-GY; J3370

== ENCOUNTER 2022-08-31 08:54 | Emergency (ER) | payer MEDICARE ==
--- NOTE | 2022-08-31 08:57 | ERPHSYRPT ---
- History of Present Illness Time Seen by Provider: 08/31/22 08:57 Source: patient Exam Limitations: no limitations Physician History: Last several days this 67-year-old white female patient has had worsening shortness of breath and rapid heart rate. Patient's primary care provider is Dr. Kelsey. Relatively recently, the patient underwent toe amputation on the right foot followed by second procedure. Patient has a history of hypertension, diabetes, gastroesophageal reflux disease, arrhythmia, coronary disease, depression and mitral valve prolapse. Patient does have shortness of breath but no significant chest pain. She denies abdominal pain. Patient is not on any anticoagulation therapy. She is on an antiplatelet medication Pletal Activities at Onset: none Quality: other (No pain) Severity of Pain-Max: none Severity of Pain-Current: none Nitro Today/Relief: no nitro taken today Aspirin Treatment Today: no aspirin today Associated Symptoms: weakness, other (Rapid heart rate) Allergies/Adverse Reactions: latex Allergy (Mild, Verified 08/31/22 09:08) Hives lamotrigine [From Lamictal] Adverse Reaction (Severe, Verified 08/31/22 09:08) Lightheadedness Home Medications: Cilostazol 100 mg [Pletal 100 MG] 100 mg PO BID 04/07/18 [History] Losartan/Hydrochlorothiazide [Losartan-Hctz 50-12.5 mg Tab] 1 each PO DAILY 04/07/18 [History] Paroxetine HCl 20 mg [Paxil 20 MG] 20 mg PO DAILY 04/07/18 [History] Milk Thistle 150 mg PO DAILY 04/14/22 [History] Metformin HCl 500 mg [Glucophage 500 MG] 500 mg PO BIDWM 07/07/22 [History] Potassium Chloride [Klor-Con 10] 10 meq PO BID 07/07/22 [History] Doxycycline Hyclate 100 mg [Vibramycin 100 MG] 100 mg PO BID 08/24/22 [History] Isosorbide Mononitrate [Isosorbide Mononitrate ER] 30 mg PO DAILY 08/25/22 [History] Esomeprazole Magnesium [Nexium] 20 mg PO BID 08/27/22 [History] Albuterol Sulfate 1 neb IH TID PRN PRN 08/28/22 [History] Hx Tetanus, Diphtheria Vaccination/Date Given: No Hx Influenza Vaccination/Date Given: Yes Hx Pneumococcal Vaccination/Date Given: No Travel Risk - International Travel Have you traveled outside of the country in past 3 weeks: No - Coronavirus Screening Are you exhibiting any of the following symptoms?: No Close contact with a COVID-19 positive Pt in past 14-21 Days: No - Vaccine Status Have you recieved a Covid-19 vaccination: Yes Heel Pricker: Furious - Vaccination Dates Date of 2cond Vaccination (if applicable): UNK Dates if Unknown: UNKNOWN DATES Comment: 1 BOOSTER - Review of Systems Constitutional: No Symptoms Eyes: No Symptoms Ears, Nose, & Throat: No Symptoms Respiratory: No Symptoms Cardiac: Palpitations Abdominal/Gastrointestinal: No Symptoms Genitourinary Symptoms: No Symptoms Musculoskeletal: No Symptoms Skin: No Symptoms Neurological: No Symptoms Psychological: No Symptoms Endocrine: No Symptoms Hematologic/Lymphatic: No Symptoms Immunological/Allergic: No Symptoms All Other Systems: Reviewed and Negative - Past Medical History Pertinent Past Medical History: Yes Neurological History: No Pertinent History ENT History: Cataracts Cardiac History: Arrhythmia, Coronary Artery Disease, Hypertension, Other Respiratory History: Bronchitis, COPD, Pneumonia Endocrine Medical History: Diabetes Type II, Liver Disease Musculoskeletal History: Arthritis, Osteoarthritis, Osteoporosis, Rheumatoid Arthritis GI Medical History: GERD, Gallbladder Disease, Hemorrhoids, Hepatitis, Other History: No Pertinent History Psycho-Social History: Depression Female Reproductive Disorders: No Pertinent History Other Medical History: HX OF MITRAL VALVE PROLAPSE, hep c. BLADDER SLING. TWISTED LOWER BOWEL. IRRATIC THOUGHTS ET DREAMS AT NIGHT. OVARIAN CANCER IN 1983,bilgram 3%. osteomylitis first digit right foot - Past Surgical History Past Surgical History: Yes Neuro Surgical History: No Pertinent History Cardiac: No Pertinent History Respiratory: No Pertinent History Gastrointestinal: Appendectomy, Cholecystectomy Genitourinary: Other Musculoskeletal: Orthopedic Surgery, Other Female Surgical History: Hysterectomy Other Surgical History: RIGHT KNEE SURGERY Gall bladder. 4 BACK SURGERYS. BLADDER SLING. CADIVER BONE IN LOWER BACK. right foot. esophogeal stretch - Social History Smoking Status: Current every day smoker How long have you smoked: 16 Exposure to second hand smoke: Yes Drug Use: none Patient Lives Alone: Yes - Nursing Vital Signs Nursing Vital Signs: Initial Vital Signs Temperature 98.5 F 08/31/22 09:11 Pulse Rate 138 H 08/31/22 09:11 Respiratory Rate 27 H 08/31/22 09:11 Blood Pressure 171/105 08/31/22 09:11 O2 Sat by Pulse Oximetry 97 08/31/22 09:11 Pain Scale Pain Intensity 8 - Physical Exam General Appearance: mild distress, alert, anxiety Eye Exam: PERRL/EOMI, eyes nml inspection Ears, Nose, Throat Exam: normal ENT inspection, moist mucous membranes Neck Exam: normal inspection, non-tender, supple, full range of motion Respiratory Exam: normal breath sounds, lungs clear, airway intact, No chest tenderness, No respiratory distress Cardiovascular Exam: tachycardia Gastrointestinal/Abdomen Exam: soft, normal bowel sounds, No tenderness Pelvic Exam: not done Rectal Exam: not done Back Exam: normal inspection, normal range of motion, No CVA tenderness, No vertebral tenderness Extremity Exam: normal range of motion, pelvis stable, other (Patient has froylan ateral lower extremity edema with venous stasis disease. 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, normal mood/affect, sensation nml Skin Exam: normal color, warm, dry Lymphatic Exam: No adenopathy SpO2 Interpretation: normal SpO2: 97 O2 Delivery: Room Air - Course Nursing assessment & vital signs reviewed: Yes EKG Interpreted by Me: RATE (139), Sinus Tach, prolonged QT interval, NORMAL QRS, NORMAL ST-T, Other (No acute ischemic changes on today's twelve-lead EKG.) Ordered Tests: Active Orders 24 hr Category Date Time Status EKG-ER Only STAT Care 08/31/22 09:11 Active IV Insertion STAT Care 08/31/22 09:11 Active Pulse Oximetry (ED) STAT Care 08/31/22 09:11 Active CHEST 1 VIEW (PORTABLE) Stat Exams 08/31/22 09:11 Completed CHEST WITH CONTRAST [CT] Stat Exams 08/31/22 10:28 Completed CBC W DIFF Stat Lab 08/31/22 09:50 Completed CMP Stat Lab 08/31/22 09:50 Completed D-DIMER QUANTITATIVE Stat Lab 08/31/22 09:50 Completed NT PRO BNPII Stat Lab 08/31/22 09:50 Completed TROPONIN Q4H Lab 08/31/22 09:50 Completed TROPONIN Q4H Lab 08/31/22 13:11 Completed TROPONIN Q4H Lab 08/31/22 17:15 Ordered Respiratory Therapy Consult ONCE RT 08/31/22 09:18 Completed Medication Summary Generic Name Dose Route Start Last Admin Trade Name Fredanna PRN Reason Stop Dose Admin Heparin Sodium (Beef Lung) 500 units 08/31/22 13:10 Heparin Lock Flush Pf 500 Units/5 Ml Syringe PICC 09/30/22 13:09 PRN PRN IV PORT FLUSH Sodium Chloride 1,000 mls @ 100 mls/hr 08/31/22 09:30 08/31/22 09:34 Sodium Chloride 0.9% 1000 Ml IV 09/30/22 09:29 100 mls/hr .Q10H GUSTAVO Administration Discontinued Medications Generic Name Dose Route Start Last Admin Trade Name Patrick PRN Reason Stop Dose Admin Methylprednisolone Sodium 0 mg 08/31/22 11:13 08/31/22 11:20 Succinate 125 mg/ Sterile IV 08/31/22 11:14 125 mg Water 2 ml STAT ONE Administration Diphenhydramine HCl 50 mg 08/31/22 11:13 08/31/22 11:20 Diphenhydramine Hcl 50 Mg/Ml Vial IV 08/31/22 11:14 50 mg STAT ONE Administration Diphenhydramine HCl Confirm 08/31/22 11:19 Diphenhydramine Hcl 50 Mg/Ml Vial Administered 08/31/22 11:20 Dose 50 mg .ROUTE .STK-MED ONE Furosemide 40 mg 08/31/22 13:34 08/31/22 13:43 Furosemide 40 Mg/4 Ml Vial IV 08/31/22 13:35 40 mg STAT ONE Administration Furosemide Confirm 08/31/22 13:36 Furosemide 40 Mg/4 Ml Vial Administered 08/31/22 13:37 Dose 40 mg .ROUTE .STK-MED ONE Labetalol HCl 10 mg 08/31/22 09:17 08/31/22 09:56 Labetalol Hcl 20 Mg/4 Ml Disp.Syringe IV 08/31/22 09:18 10 mg STAT ONE Administration Labetalol HCl Confirm 08/31/22 09:32 Labetalol Hcl 20 Mg/4 Ml Disp.Syringe Administered 08/31/22 09:33 Dose 20 mg IV .STK-MED ONE Labetalol HCl 10 mg 08/31/22 13:38 08/31/22 13:52 Labetalol Hcl 20 Mg/4 Ml Disp.Syringe IV 08/31/22 13:39 10 mg STAT ONE Administration Labetalol HCl Confirm 08/31/22 13:50 Labetalol Hcl 20 Mg/4 Ml Disp.Syringe Administered 08/31/22 13:51 Dose 20 mg IV .STK-MED ONE Methylprednisolone Sodium Succinate Confirm 08/31/22 11:19 Methylprednis Sod Succ 125 Mg/2 Ml Vial Administered 08/31/22 11:20 Dose 125 mg .ROUTE .STK-MED ONE Ondansetron HCl 4 mg 08/31/22 09:11 08/31/22 09:37 Ondansetron Hcl 4 Mg/2 Ml Vial IV 08/31/22 09:12 4 mg STAT ONE Administration Ondansetron HCl Confirm 08/31/22 09:32 Ondansetron Hcl 4 Mg/2 Ml Vial Administered 08/31/22 09:33 Dose 4 mg .ROUTE .STK-MED ONE Sterile Water Confirm 08/31/22 11:19 Water For Injection,Sterile 10 Ml Vial Administered 08/31/22 11:20 Dose 10 ml IJ .STK-MED ONE Lab/Rad Data: Laboratory Result Diagrams 08/31/22 09:50 08/31/22 09:50 Laboratory Results 08/31/22 08/31/22 08/31/22 Range/Units 13:11 09:50 09:50 WBC (4.0-10.5) x10^3/uL RBC (4.1-5.4) x10^6/uL Hgb (12.0-16.0) g/dL Hct (35-47) % MCV (78-100) fL MCH (26-32) pg MCHC (32-36) g/dL RDW (11.5-14.0) % Plt Count (150-450) x10^3/uL MPV (7.5-11.0) fL Gran % (36.0-66.0) % Immature Gran % (Auto) (0.00-0.4) % Nucleat RBC Rel Count (0.00-0.1) % Eos # (Auto) (0-0.5) x10^3/uL Immature Gran # (Auto) (0.00-0.03) x10^3u/L Absolute Lymphs (auto) (1.0-4.6) x10^3/uL Absolute Monos (auto) (0.0-1.3) x10^3/uL Absolute Nucleated RBC (0.00-0.01) x10^3u/L Lymphocytes % (24.0-44.0) % Monocytes % (0.0-12.0) % Eosinophils % (0.00-5.0) % Basophils % (0.0-0.4) % Absolute Granulocytes (1.4-6.9) x10^3/uL Basophils # (0-0.4) x10^3/uL D-Dimer 6.78 H* (0.0-0.50) mg/L Sodium (137-145) mmol/L Potassium (3.5-5.1) mmol/L Chloride (98-107) mmol/L Carbon Dioxide (22-30) mmol/L Anion Gap (5-15) MEQ/L BUN (7-17) mg/dL Creatinine (0.52-1.04) mg/dL Estimated GFR ML/MIN Glucose (74-106) mg/dL Calcium (8.4-10.2) mg/dL Total Bilirubin (0.2-1.3) mg/dL AST (14-36) U/L ALT (0-35) U/L Alkaline Phosphatase (38-126) U/L Troponin I < 0.012 < 0.012 (0.000-0.034) ng/mL NT-Pro-B Natriuret Pep (<300) pg/mL Serum Total Protein (6.3-8.2) g/dL Albumin (3.5-5.0) g/dL Influenza Type A Ag (NEGATIVE) Influenza Type B Ag (NEGATIVE) RSV (PCR) (NEGATIVE) SARS-CoV-2 (PCR) (NEGATIVE) Slides for Path Review 08/31/22 08/31/22 08/31/22 Range/Units 09:50 09:50 09:17 WBC 2.6 L (4.0-10.5) x10^3/uL RBC 3.49 L (4.1-5.4) x10^6/uL Hgb 9.4 L (12.0-16.0) g/dL Hct 30.7 L (35-47) % MCV 88.0 (78-100) fL MCH 26.9 (26-32) pg MCHC 30.6 L (32-36) g/dL RDW 18.1 H (11.5-14.0) % Plt Count 64 L (150-450) x10^3/uL MPV 10.7 (7.5-11.0) fL Gran % 68.1 H (36.0-66.0) % Immature Gran % (Auto) 0.0 (0.00-0.4) % Nucleat RBC Rel Count 0.0 (0.00-0.1) % Eos # (Auto) 0.02 (0-0.5) x10^3/uL Immature Gran # (Auto) 0.00 (0.00-0.03) x10^3u/L Absolute Lymphs (auto) 0.52 L (1.0-4.6) x10^3/uL Absolute Monos (auto) 0.27 (0.0-1.3) x10^3/uL Absolute Nucleated RBC 0.00 (0.00-0.01) x10^3u/L Lymphocytes % 20.2 L (24.0-44.0) % Monocytes % 10.5 (0.0-12.0) % Eosinophils % 0.8 (0.00-5.0) % Basophils % 0.4 (0.0-0.4) % Absolute Granulocytes 1.76 (1.4-6.9) x10^3/uL Basophils # 0.01 (0-0.4) x10^3/uL D-Dimer (0.0-0.50) mg/L Sodium 138 (137-145) mmol/L Potassium 3.7 (3.5-5.1) mmol/L Chloride 103 (98-107) mmol/L Carbon Dioxide 35 H (22-30) mmol/L Anion Gap 3.1 L (5-15) MEQ/L BUN 16 (7-17) mg/dL Creatinine 0.57 (0.52-1.04) mg/dL Estimated GFR > 60.0 ML/MIN Glucose 143 H (74-106) mg/dL Calcium 8.4 (8.4-10.2) mg/dL Total Bilirubin 2.20 H (0.2-1.3) mg/dL AST 130 H (14-36) U/L ALT 47 H (0-35) U/L Alkaline Phosphatase 197 H (38-126) U/L Troponin I (0.000-0.034) ng/mL NT-Pro-B Natriuret Pep 634 (<300) pg/mL Serum Total Protein 7.1 (6.3-8.2) g/dL Albumin 2.7 L (3.5-5.0) g/dL Influenza Type A Ag NEGATIVE (NEGATIVE) Influenza Type B Ag NEGATIVE (NEGATIVE) RSV (PCR) NEGATIVE (NEGATIVE) SARS-CoV-2 (PCR) NEGATIVE (NEGATIVE) Slides for Path Review YES - Progress Progress: improved, re-examined Air Movement: fair Progress Note: 08/31/22 10:06 Chest x-ray was interpreted by the radiologist. The impression is new small bibasilar effusions/atelectasis. The impression was reviewed by me. 08/31/22 11:14 This patient told communications technician she could not remember if she was allergic to oral contrast or IV contrast. Intravenous contrast is not listed as one of her allergies. In [address] scan of the abdomen pelvis with and without. Her reaction to the oral contrast she thinks was just a rash without any respiratory compromise or issues. We will premedicate her with Solu-Medrol 125 mg intravenously as well as 50 mg intravenous Benadryl. 08/31/22 13:39 CT scan of the chest with contrast shows no obvious pulmonary embolus. There is small, nonspecific bilateral pleural effusions without cardiomegaly. There is a cirrhotic liver with splenomegaly and incompletely visualized ascites. This patient has a medical issue of moderate complexity. The level of complexity in the work-up performed is based on review of the patient's past medical history, review the patient's medication list, review of the patient's drug allergy list, history present illness and physical findings on examination. Work-up included a CBC, CMP, placement of an intravenous line, D-dimer, troponin level, twelve-lead EKG, chest x-ray. The D-dimer returned very elevated. However she is postoperative patient which may increase the D-dimer. We did do a CT of the chest with contrast and there is no evidence of any pulmonary embolus. The patient's sinus tachycardia has improved. The troponin level is normal. We are awaiting the second, 4-hour troponin level and will repeat the twelve-lead EKG. The patient does have small pleural effusions as well as intra-abdominal ascites. We will discharge the patient to home if patient is hemodynamically stable and the repeat troponin is normal. 08/31/22 14:30 Patient reexamined. Patient states she is feeling much improved. Her heart rate is in the 90s and she is in normal sinus rhythm based on the monitor. We are awaiting the repeat twelve-lead EKG and the troponin level. We we will try to make arrangements for her to have a follow-up appointment to see Dr. Kelsey this week for referral to a technical publications writer as indicated. We will also have the O nurse contacted so we can attempt to help the patient secure transportation for medical care. Blood Culture(s) Obtained: Yes Counseled pt/family regarding: lab results, diagnosis, rad results Medical Desision Making - External Record(s) Reviewed Records reviewed as a part of evaluation & management: Inpatient - Discussion of managment Agreed on:: Treatment plan, need for follow-up - Social Determinants of Health Pt's dx & treatment plan are significantly limited by SDOH: Unemployed Limited access to: transportation, medical care - Diagnostic Testing Diagnostic test were ordered, analyzed, and reviewed by me: Yes Radiological Interpretation: Reviewed by me, Teleradiologist Report - Risk of complications Low Risk: Low risk of morbidity from additional dx testing or treatment - Departure Departure Disposition: Home Clinical Impression: Tachycardia, Shortness of breath, Cirrhosis, Pleural effusion associated with hepatic disorder Condition: Stable Critical Care Time: Yes Critical Care Time(excluding separately billable procedures): Critical 30-74 mins (45 minutes) Referrals: PO KELSEY [Primary Care Provider] - Follow up/PCP as directed Additional Instructions: Follow-up with Dr. Kelsey in his office by phone to make arranges for follow-up appointment in the next 3 to 5 days. Discussed with him about referral to technical publications writer to discuss your cirrhosis issues.
[2022-08-31] MEDS ORDERED: Zofran 4 MG/2 ML VIAL IV ONE (09:11)
[2022-08-31] MEDS ORDERED: TRANDATE 20 MG/4 ML SYRINGE IV ONE ×4 (09:17→13:50)
[2022-08-31] MEDS ORDERED: Sodium Chloride 0.9% 1000 ML 1,000 ML IV SCH (09:30)
[2022-08-31] MEDS ORDERED: Zofran 4 MG/2 ML VIAL ONE (09:32)
[2022-08-31] MEDS ORDERED: Sodium Chloride 0.9% 1000 ML 1,000 ML ONE (09:33)
[2022-08-31 09:54] LABS: Absolute Neutrophil Ct (ANC) 1.76 x10^3/uL (1.4-6.9); BASOPHIL % 0.4 % (0.0-0.4); Basophil (Absolute #) 0.01 x10^3/uL (0-0.4); Eosinophil % 0.8 % (0.00-5.0); Eosinophil (Absolute #) 0.02 x10^3/uL (0-0.5); Hematocrit 30.7 % (35-47); Hemoglobin 9.4 g/dL (12.0-16.0); Lymphocyte (Absolute #) 0.52 x10^3/uL (1.0-4.6); Lymphocytes % 20.2 % (24.0-44.0); Mean Corpuscular Hemoglobin 26.9 pg (26-32); Mean Corpuscular Hgb Concent. 30.6 g/dL (32-36); Mean Platelet Volume 10.7 fL (7.5-11.0); Monocyte (Absolute #) 0.27 x10^3/uL (0.0-1.3); Monocytes % 10.5 % (0.0-12.0); Neutrophil % 68.1 % (36.0-66.0); Platelet Count 64 x10^3/uL (150-450); Red Blood Count 3.49 x10^6/uL (4.1-5.4); Red Cell Distribution Width 18.1 % (11.5-14.0); White Blood Count 2.6 x10^3/uL (4.0-10.5)
--- NOTE | 2022-08-31 10:00 | XRAY ---
Indication: Short of breath. Tachycardia. Comparison: June 24, 2021 Portable chest demonstrates new small bibasilar effusions/atelectasis. Remaining heart and lungs unremarkable again with incidental calcified granulomas. Bony thorax intact again with osteopenia
[2022-08-31 10:01] LABS: INFLUENZA A NEGATIVE (NEGATIVE); INFLUENZA B NEGATIVE (NEGATIVE); RESPIRATORY SYNCTIAL VIRUS NEGATIVE (NEGATIVE); SARS-CoV-2 Xpert Express NEGATIVE (NEGATIVE)
[2022-08-31 10:23] LABS: ALBUMIN 2.7 g/dL (3.5-5.0); ALKALINE PHOSPHATASE 197 U/L (38-126); ANION GAP 3.1 MEQ/L (5-15); BLOOD UREA NITROGEN 16 mg/dL (7-17); CHLORIDE 103 mmol/L (98-107); Calcium 8.4 mg/dL (8.4-10.2); Carbon Dioxide 35 mmol/L (22-30); Creatinine 1 0.57 mg/dL (0.52-1.04); EST GLOMERULAR FILTRATION RATE > 60.0 ML/MIN; Glucose 143 mg/dL (74-106); NT PRO BNPII 634 pg/mL (<300); Potassium 3.7 mmol/L (3.5-5.1); SGOT/AST 130 U/L (14-36); SGPT/ALT 47 U/L (0-35); SODIUM 138 mmol/L (137-145); Total Protein 7.1 g/dL (6.3-8.2)
[2022-08-31 11:09] LABS: Slide Review 1 YES
[2022-08-31] MEDS ORDERED: solu-MEDROL 125 MG, Sterile H2O 10 ml 2 ML IV ONE ×2 (11:13)
[2022-08-31] MEDS ORDERED: BENADRYL 50 MG/ML IV ONE (11:13)
[2022-08-31] MEDS ORDERED: BENADRYL 50 MG/ML ONE (11:19)
[2022-08-31] MEDS ORDERED: solu-MEDROL ONE (11:19)
[2022-08-31] MEDS ORDERED: Sterile H2O 10 ml IJ ONE (11:19)
[2022-08-31 11:36] VITALS: PULSE 106
--- NOTE | 2022-08-31 13:30 | XRAY ---
Indication: Short of breath. Elevated d-dimer. Multiple contiguous axial images obtained through the chest using 80 cc Isovue 370 contrast and PE protocol. Comparison: None Good opacification of the pulmonary arteries to include the lobar and segmental branches. Mild diffuse respiration artifact limits evaluation of the more distal lobar and segmental branches. No obvious pulmonary embolus. Heart not enlarged with right arm PICC line. Aorta is minimal anterior scattered without aneurysm/dissection. No pathologic mediastinal/hilar lymphadenopathy. Lungs demonstrates mild biapical subpleural cystic changes, small bilateral lower lobe calcified granulomas, and small nonspecific bilateral pleural effusions. Bony thorax intact with osteopenia. Limited upper abdomen demonstrates cirrhotic appearing liver, 12.3 cm splenomegaly, and incompletely visualized moderate ascites. Impression: 1. Pulmonary embolus evaluation limited by respiration artifact. No obvious pulmonary embolus. 2. Small nonspecific bilateral pleural effusions without cardiomegaly. 3. Cirrhotic liver with splenomegaly and incompletely visualized ascites. 4. Chronic findings including biapical subpleural cystic changes, arteriosclerotic disease, osteopenia, and old granulomatous disease.
[2022-08-31] MEDS ORDERED: Lasix 40 MG/4 ML IV ONE (13:34)
[2022-08-31] MEDS ORDERED: Lasix 40 MG/4 ML ONE (13:36)
[2022-08-31 13:43] VITALS: O2SAT 97
[2022-08-31 13:59] VITALS: BP 154/101
== END 2022-08-31 15:01 | disposition home or self-care (01) ==
LOC: ED 08:54
DX: R06.02 Shortness of breath (principal); R00.0 Tachycardia, unspecified; K74.60 Unspecified cirrhosis of liver; J91.8 Pleural effusion in other conditions classified elsewhere; I10 Essential (primary) hypertension; E11.9 Type 2 diabetes mellitus without complications; Z79.02 Long term (current) use of antithrombotics/antiplatelets; Z79.84 Long term (current) use of oral hypoglycemic drugs; Z79.899 Other long term (current) drug therapy; Z72.0 Tobacco use; Z59.82 Transportation insecurity; Z75.3 Unavailability and inaccessibility of health-care facilities; Z56.0 Unemployment, unspecified; Z20.828 Contact with and (suspected) exposure to other viral communicable diseases
CPT/HCPCS: 0241U; 36000; 36415; 71045; 71260; 80053; 83880; 84484; 85025; 85379; 93005; 94760; 96374; 96375; 96376; 99211; 99285; 99291; 29580; 99214; J0878; J1200; J1642; J1940; J2405; J2930

== ENCOUNTER 2022-11-04 08:25 | Inpatient (IN) | payer MEDICARE ==
[2022-11-04] MEDS ORDERED: TYLENOL 325 MG PO PRN (10:43)
[2022-11-04] MEDS ORDERED: HUMALOG SQ PRN (10:43)
[2022-11-04 11:43] LABS: Hematocrit 31.6 % (35-47); Hemoglobin 9.7 g/dL (12.0-16.0); Mean Cell Volume 93.5 fL (78-100); Mean Corpuscular Hemoglobin 28.7 pg (26-32); Mean Corpuscular Hgb Concent. 30.7 g/dL (32-36); Platelet Count 60 x10^3/uL (150-450); Red Blood Count 3.38 x10^6/uL (4.1-5.4); Red Cell Distribution Width 19.7 % (11.5-14.0); White Blood Count 2.2 x10^3/uL (4.0-10.5)
[2022-11-04 12:26] LABS: ALBUMIN 2.3 g/dL (3.5-5.0); Calcium 7.7 mg/dL (8.4-10.2); Creatinine 1 1.1 mg/dL (0.52-1.04); EST GLOMERULAR FILTRATION RATE 52.8 ML/MIN; Potassium 3.7 mmol/L (3.5-5.1); Total Protein 7.5 g/dL (6.3-8.2)
[2022-11-04] MEDS ORDERED: PHARMACY DOSING REQUIRED: VANCOMYCIN MC ONE (13:45)
[2022-11-04] MEDS ORDERED: PHARMACY DOSING REQUEST MC ONE (13:45)
[2022-11-04 13:46] LABS: Slide Review YES
--- NOTE | 2022-11-04 14:37 | PCM.HP ---
History of Present Illness - Chief Complaint Chief Complaint: Osteomyelitis Date: 11/04/22 History of Present Illness: 67-year-old with a history of type 2 diabetes, peripheral arterial disease, hypertension, leukemia, GERD, and anxiety, who presents from podiatry clinic with nonhealing right foot wound with evidence of acute osteomyelitis. Patient previously had amputation of her right third toe. However, she has been noncompliant with follow-up, and presented to podiatry clinic with Dr. Alcala on Wednesday with wound dehiscence. MRI of the foot noted diffuse anterior foot cellulitis with likely multifocal osteomyelitis involving the tarsal, metatarsal, and phalanges bones. She notes some pain and drainage at the site, but no fevers or nausea, no systemic symptoms. She is being admitted with plans for Dr. Alcala take to the OR tomorrow for a transmetatarsal amputation. Patient notes that she was diagnosed 8 weeks ago with leukemia, but has not yet been able to go to the cancer center to begin any treatment. She does not recall what kind of leukemia that she has. She also has been having fluid retention in her abdomen and legs, and was recently started on Lasix 40 mg TID. She denies chest pain or dyspnea, and has not noted any wheezing. - Review of Systems Constitutional: Chills, No Fever, No Fatigue, No Malaise, No Night Sweats Eyes: No Symptoms Ears, Nose, & Throat: No Symptoms Respiratory: No Cough, No Short Of Breath, No Wheezing Cardiac: Edema, No Chest Pain, No Palpitations, No Syncope Abdominal/Gastrointestinal: No Abdominal Pain, No Nausea, No Vomiting, No Diarrhea Genitourinary Symptoms: No Dysuria, No Frequency, No Hematuria Musculoskeletal: No Symptoms Skin: Cellulitis Neurological: No Symptoms Psychological: No Symptoms Medications & Allergies Home Medications: Home Medication List Cilostazol 100 mg [Pletal 100 MG] 100 mg PO BID 04/07/18 [History Confirmed 11/04/22] Losartan/Hydrochlorothiazide [Losartan-Hctz 50-12.5 mg Tab] 1 each PO DAILY 04/07/18 [History Confirmed 11/04/22] Paroxetine HCl 20 mg [Paxil 20 MG] 20 mg PO DAILY 04/07/18 [History Confirmed 11/04/22] Milk Thistle 150 mg PO DAILY 04/14/22 [History Confirmed 11/04/22] Metformin HCl 500 mg [Glucophage 500 MG] 500 mg PO BIDWM 07/07/22 [History Confirmed 11/04/22] Potassium Chloride [Klor-Con 10] 10 meq PO DAILY 07/07/22 [History Confirmed 11/04/22] Isosorbide Mononitrate [Isosorbide Mononitrate ER] 30 mg PO DAILY 08/25/22 [History Confirmed 11/04/22] Esomeprazole Magnesium [Nexium] 20 mg PO BID 08/27/22 [History Confirmed 11/04/22] Albuterol Sulfate 1 neb IH TID PRN PRN 08/28/22 [History Confirmed 11/04/22] Cholecalciferol (Vitamin D3) [Vitamin D3] 1,250 mcg PO WEEKLY 11/04/22 [History Confirmed 11/04/22] Furosemide 40 mg [Lasix 40 MG] 40 mg PO TID 11/04/22 [History Confirmed 11/04/22] Allergies/Adverse Reactions: Allergies Allergy/AdvReac Type Severity Reaction Status Date / Time latex Allergy Mild Hives Verified 08/31/22 09:08 lamotrigine [From Lamictal] AdvReac Severe Lightheaded Verified 08/31/22 09:08 ness - Past Medical History Past Medical History: Yes Neurological History: No Pertinent History ENT History: Cataracts Cardiac History: Arrhythmia, Coronary Artery Disease, Hypertension, Other Respiratory History: Bronchitis, COPD Endocrine Medical History: Diabetes Type II, Liver Disease Musculoskelatal History: Arthritis, Osteoarthritis, Osteoporosis, Rheumatoid Arthritis GI Medical History: GERD, Gallbladder Disease, Hemorrhoids, Hepatitis, Other History: No Pertinent History Pyscho-Social History: Depression Reproductive Disorders: No Pertinent History Comment: HX OF MITRAL VALVE PROLAPSE, hep c. BLADDER SLING. TWISTED LOWER BOWEL. IRRATIC THOUGHTS ET DREAMS AT NIGHT. OVARIAN CANCER IN 1983,bilgram 3%. osteomylitis first digit right foot - Female History Are you now?: No - Past Surgical History Past Surgical History: Yes Neuro Surgical History: No Pertinent History Cardiac History: No Pertinent History Respiratory Surgery: No Pertinent History GI Surgical History: Appendectomy, Cholecystectomy Genitourinary Surgical Hx: Other Musculskeletal Surgical Hx: Orthopedic Surgery, Other Female Surgical History: Hysterectomy Other Surgical History: RIGHT KNEE SURGERY Gall bladder. 4 BACK SURGERYS. BLADDER SLING. CADIVER BONE IN LOWER BACK. right foot. esophogeal stretch - Social History Smoking Status: Current every day smoker How long have you smoked: 20 years Exposure to second hand smoke: Yes Alcohol: None Drug Use: none Significant Family History: cancer (Father with leukemia) - Physical Exam Vital Signs: Vital Signs - 24 hr Temp Pulse Resp BP Pulse Ox 11/04/22 10:21 97.3 F 101 H 19 159/81 95 General Appearance: no apparent distress Neurologic Exam: alert, oriented x 3, other (Mildly pressured speech, distractible) Eye Exam: eyes nml inspection Respiratory Exam: wheezing, No chest tenderness, No accessory muscle use, No prolonged expirations, No crackles/rales Cardiovascular Exam: regular rate/rhythm, murmur (2/6 systolic), edema (To bilateral shins, pitting), No gallop Gastrointestinal/Abdomen Exam: soft, No tenderness, No distention Results - Labs Lab/Micro Results: Lab Results-Last 24 Hours 11/04/22 11/04/22 11/04/22 Range/Units 11:30 11:35 11:35 WBC 2.2 L (4.0-10.5) x10^3/uL RBC 3.38 L (4.1-5.4) x10^6/uL Hgb 9.7 L (12.0-16.0) g/dL Hct 31.6 L (35-47) % MCV 93.5 (78-100) fL MCH 28.7 (26-32) pg MCHC 30.7 L (32-36) g/dL RDW 19.7 H (11.5-14.0) % Plt Count 60 L (150-450) x10^3/uL MPV 11.0 (7.5-11.0) fL ESR 72 H (0-20) mm/hr Sodium 139 (137-145) mmol/L Potassium 3.7 (3.5-5.1) mmol/L Chloride 106 (98-107) mmol/L Carbon Dioxide 30 (22-30) mmol/L Anion Gap 6.0 (5-15) MEQ/L BUN 27 H (7-17) mg/dL Creatinine 1.10 H (0.52-1.04) mg/dL Estimated GFR 52.8 ML/MIN Glucose 112 H (74-106) mg/dL POC Glucometer (74 to 106) mg/dL Lactic Acid (0.4-2.0) Calcium 7.7 L (8.4-10.2) mg/dL Total Bilirubin 2.00 H (0.2-1.3) mg/dL AST 137 H (14-36) U/L ALT 54 H (0-35) U/L Alkaline Phosphatase 335 H (38-126) U/L Serum Total Protein 7.5 (6.3-8.2) g/dL Albumin 2.3 L (3.5-5.0) g/dL Slides for Path Review YES 11/04/22 11/04/22 Range/Units 11:43 13:25 WBC (4.0-10.5) x10^3/uL RBC (4.1-5.4) x10^6/uL Hgb (12.0-16.0) g/dL Hct (35-47) % MCV (78-100) fL MCH (26-32) pg MCHC (32-36) g/dL RDW (11.5-14.0) % Plt Count (150-450) x10^3/uL MPV (7.5-11.0) fL ESR (0-20) mm/hr Sodium (137-145) mmol/L Potassium (3.5-5.1) mmol/L Chloride (98-107) mmol/L Carbon Dioxide (22-30) mmol/L Anion Gap (5-15) MEQ/L BUN (7-17) mg/dL Creatinine (0.52-1.04) mg/dL Estimated GFR ML/MIN Glucose (74-106) mg/dL POC Glucometer 94 (74 to 106) mg/dL Lactic Acid 0.7 (0.4-2.0) Calcium (8.4-10.2) mg/dL Total Bilirubin (0.2-1.3) mg/dL AST (14-36) U/L ALT (0-35) U/L Alkaline Phosphatase (38-126) U/L Serum Total Protein (6.3-8.2) g/dL Albumin (3.5-5.0) g/dL Slides for Path Review Microbiology 11/04/22 Unknown Blood Culture Gram Stain - Final Blood Not Reportable 11/04/22 Unknown Blood Culture Gram Stain - Final Blood Not Reportable Accuchecks Date 11/04/22 Time 12:04 - Radiology Impressions Radiology Exams & Impressions: MRI lower extremity with contrast: No focal solid/cystic soft tissue mass or abnormal fluid collection. Mild T2 edema signal involving the first through fourth metatarsals, first cuneiform, and cuboid, which may represent osteomyelitis in the right clinical setting. Proximal first and second phalanges also demonstrate subtle subcortical T2 edema signal over the plantar aspect, concerning for mild versus early osteomyelitis. Ulcer has amputation of the entire third toe and mid to distal third metatarsal. Shaft second metatarsal demonstrates mild valgus angulated fracture with radial for the improving healing callus formation. - Other Procedures and Tests Respiratory Therapy 11/04/22 11:22 Smoking Cessation Education ONCE Assessment/Plan (1) Acute osteomyelitis of right foot Current Visit: Yes Status: Acute Assessment & Plan: 67-year-old woman with history of type 2 diabetes, PAD, hypertension, leukemia, anxiety, and GERD, here with right foot acute osteomyelitis and nonhealing surgical wound. ## Acute osteomyelitis, nonhealing wound diabetic foot wound, with prior right third toe amputation, now nonhealing. And now with evidence of acute osteomyelitis on MRI. Check blood cultures and CRP Start vancomycin and Zosyn N.p.o. after midnight for planned right transmetatarsal amputation tomorrow ## Acute kidney injury recent baseline creatinine is around 0.6, up to 1.1. Likely due to recent initiation of Lasix 3 times a day. Holding home Lasix 40 TID, and losartan/HCTZ 50/12.5 Repeat BMP in the morning ## Type 2 diabetes at home, only on metformin. Well-controlled, with hemoglobin A1c of 5.3 in August. Continue metformin Moderate-dose sliding scale insulin ## Peripheral arterial disease with poorly healing wound as above. Continue cilostazol 100 mg BID ## Leukemia, pancytopenia nature of her leukemia is unclear, and patient cannot remember details. Her pancytopenia appears to be stable from August, when she was first diagnosed. Follow CBC ## Cirrhosis not noted in patient's history, but review of prior imaging from 2019 shows imaging evidence of cirrhosis. Currently she has elevated bilirubin, AST, and ALT, although within her baseline this year. Repeat CMP in the morning CODE STATUS: Full code Diet: Diabetic for now, then n.p.o. at midnight Prophylaxis: Lovenox 40, can start after surgery . Code(s): M86.171 - OTHER ACUTE OSTEOMYELITIS, RIGHT ANKLE AND FOOT Telemedicine Encounter - Telemedicine Encounter Telemedicine Encounter: The entirety of this encounter was performed via Telemedicine"
[2022-11-04] MEDS ORDERED: NON-FORMULARY ITEM (Cholecalciferol (Vitamin D3) [Vitamin D3] 1,250 MCG Tablet) PO SCH (15:15)
[2022-11-04] MEDS ORDERED: MEDICATION INTERVENTION MC SCH (15:30)
[2022-11-04] MEDS: VANCOMYCIN 1 GRAM/200 ML BAG 1 GM/200 ML PIGGYBACK IV SCH (15:40)
[2022-11-04] MEDS: PROVENTIL 2.5 MG/3 ML NEB IH PRN (15:50)
--- NOTE | 2022-11-04 16:10 | PCM.CONS ---
Podiatry HPI - Consult Reason for Consult: Osteomyelitis and acute infection DFU in setting of immunocompromised patient Consulting Provider: JOSÉ MIGUEL MOURA DPM - HPI History of Present Illness: Jennie is a very pleasant 67 year old female with history of diabetic foot ulcers for which we have been managing since july of this year. Patient has had amputations in order to manage her infection however a combination of factors has lead to her failing out patient therapy. One of the more concerning factor is her recent diagnosis of leukemia. She has had consistent MRSA cultures taken on presentation for a chronic non healing wound and a recent MRI demonstrating enhancement on T2 and dropout of signal on T1 characteristic of OM to the right 1,2 and 4th metatarsal. Discussion was held with her and her ex in clinic in regards to proceeding prior to patient going septic to prevent significant complications as a result of leukemia and inability to respond to therapy in an outpatient setting. Patient currently denies any new indications of sepsis. She denies any other pedal complaints at this time. Medications & Allergies Home Medications: Home Medication List Cilostazol 100 mg [Pletal 100 MG] 100 mg PO BID 04/07/18 [History Confirmed 11/04/22] Losartan/Hydrochlorothiazide [Losartan-Hctz 50-12.5 mg Tab] 1 each PO DAILY 04/07/18 [History Confirmed 11/04/22] Paroxetine HCl 20 mg [Paxil 20 MG] 20 mg PO DAILY 04/07/18 [History Confirmed 11/04/22] Milk Thistle 150 mg PO DAILY 04/14/22 [History Confirmed 11/04/22] Metformin HCl 500 mg [Glucophage 500 MG] 500 mg PO BIDWM 07/07/22 [History Confirmed 11/04/22] Potassium Chloride [Klor-Con 10] 10 meq PO DAILY 07/07/22 [History Confirmed 11/04/22] Isosorbide Mononitrate [Isosorbide Mononitrate ER] 30 mg PO DAILY 08/25/22 [History Confirmed 11/04/22] Esomeprazole Magnesium [Nexium] 20 mg PO BID 08/27/22 [History Confirmed 11/04/22] Albuterol Sulfate 1 neb IH TID PRN PRN 08/28/22 [History Confirmed 11/04/22] Cholecalciferol (Vitamin D3) [Vitamin D3] 1,250 mcg PO WEEKLY 11/04/22 [History Confirmed 11/04/22] Furosemide 40 mg [Lasix 40 MG] 40 mg PO TID 11/04/22 [History Confirmed 11/04/22] Allergies/Adverse Reactions: Allergies Allergy/AdvReac Type Severity Reaction Status Date / Time latex Allergy Mild Hives Verified 08/31/22 09:08 lamotrigine [From Lamictal] AdvReac Severe Lightheaded Verified 08/31/22 09:08 ness - Past Medical History Past Medical History: Yes Neurological History: No Pertinent History ENT History: Cataracts Cardiac History: Arrhythmia, Coronary Artery Disease, Hypertension, Other Respiratory History: Bronchitis, COPD Endocrine Medical History: Diabetes Type II, Liver Disease Musculoskelatal History: Arthritis, Osteoarthritis, Osteoporosis, Rheumatoid Arthritis GI Medical History: GERD, Gallbladder Disease, Hemorrhoids, Hepatitis, Other History: No Pertinent History Pyscho-Social History: Depression Reproductive Disorders: No Pertinent History Comment: HX OF MITRAL VALVE PROLAPSE, hep c. BLADDER SLING. TWISTED LOWER BOWEL. IRRATIC THOUGHTS ET DREAMS AT NIGHT. OVARIAN CANCER IN 1983,bilgram 3%. osteomylitis first digit right foot - Female History Are you now?: No - Past Surgical History Past Surgical History: Yes Neuro Surgical History: No Pertinent History Cardiac History: No Pertinent History Respiratory Surgery: No Pertinent History GI Surgical History: Appendectomy, Cholecystectomy Genitourinary Surgical Hx: Other Musculskeletal Surgical Hx: Orthopedic Surgery, Other Female Surgical History: Hysterectomy Other Surgical History: RIGHT KNEE SURGERY Gall bladder. 4 BACK SURGERYS. BLADDER SLING. CADIVER BONE IN LOWER BACK. right foot. esophogeal stretch - Social History Smoking Status: Current every day smoker How long have you smoked: 20 years Exposure to second hand smoke: Yes Alcohol: None Drug Use: none Significant Family History: cancer (Father with leukemia) Physical Exam - General General Appearance: moderate distress, anxiety - Neuro Neurologic: Epicritic and protopathic - Vascular Peripheral Pulses: Posterior tibialis: 2+, Dorsalis-Pedis: 1+ Varicosities: Negtive Edema: Pitting Edema Degree: 2+ - Narrative Narrative Physical Exam: Podiatry Physical Exam Results - Labs Lab/Micro Results: Lab Results-Last 24 Hours 11/04/22 11/04/22 11/04/22 Range/Units 11:30 11:35 11:35 WBC 2.2 L (4.0-10.5) x10^3/uL RBC 3.38 L (4.1-5.4) x10^6/uL Hgb 9.7 L (12.0-16.0) g/dL Hct 31.6 L (35-47) % MCV 93.5 (78-100) fL MCH 28.7 (26-32) pg MCHC 30.7 L (32-36) g/dL RDW 19.7 H (11.5-14.0) % Plt Count 60 L (150-450) x10^3/uL MPV 11.0 (7.5-11.0) fL ESR 72 H (0-20) mm/hr Sodium 139 (137-145) mmol/L Potassium 3.7 (3.5-5.1) mmol/L Chloride 106 (98-107) mmol/L Carbon Dioxide 30 (22-30) mmol/L Anion Gap 6.0 (5-15) MEQ/L BUN 27 H (7-17) mg/dL Creatinine 1.10 H (0.52-1.04) mg/dL Estimated GFR 52.8 ML/MIN Glucose 112 H (74-106) mg/dL POC Glucometer (74 to 106) mg/dL Lactic Acid (0.4-2.0) Calcium 7.7 L (8.4-10.2) mg/dL Total Bilirubin 2.00 H (0.2-1.3) mg/dL AST 137 H (14-36) U/L ALT 54 H (0-35) U/L Alkaline Phosphatase 335 H (38-126) U/L Serum Total Protein 7.5 (6.3-8.2) g/dL Albumin 2.3 L (3.5-5.0) g/dL Slides for Path Review YES 11/04/22 11/04/22 Range/Units 11:43 13:25 WBC (4.0-10.5) x10^3/uL RBC (4.1-5.4) x10^6/uL Hgb (12.0-16.0) g/dL Hct (35-47) % MCV (78-100) fL MCH (26-32) pg MCHC (32-36) g/dL RDW (11.5-14.0) % Plt Count (150-450) x10^3/uL MPV (7.5-11.0) fL ESR (0-20) mm/hr Sodium (137-145) mmol/L Potassium (3.5-5.1) mmol/L Chloride (98-107) mmol/L Carbon Dioxide (22-30) mmol/L Anion Gap (5-15) MEQ/L BUN (7-17) mg/dL Creatinine (0.52-1.04) mg/dL Estimated GFR ML/MIN Glucose (74-106) mg/dL POC Glucometer 94 (74 to 106) mg/dL Lactic Acid 0.7 (0.4-2.0) Calcium (8.4-10.2) mg/dL Total Bilirubin (0.2-1.3) mg/dL AST (14-36) U/L ALT (0-35) U/L Alkaline Phosphatase (38-126) U/L Serum Total Protein (6.3-8.2) g/dL Albumin (3.5-5.0) g/dL Slides for Path Review Microbiology 11/04/22 Unknown Blood Culture Gram Stain - Final Blood Not Reportable 11/04/22 Unknown Blood Culture Gram Stain - Final Blood Not Reportable Accuchecks Date 11/04/22 Time 12:04 - Other Procedures and Tests Respiratory Therapy 11/04/22 15:51 Oxygen Nasal Cannula 2 lpm Respiratory Therapy Assessment DAILY Assessment/Plan (1) Acute leukemia Current Visit: Yes Status: Acute Assessment & Plan: Patient examination and evaluation X-rays were reviewed demonstrating a new fracture of the second metatarsal with significant angulation. MRI demonstrating changes consistent with OM to metatarsal 1,2&4. Discussion regarding concerns of OM in the setting of Leukemia with impaired immune response. Patient currently not septic however concerns over ability to mount response. She was informed of urgency of proceeding with direct admit and IV abx as well as intervention with Transmetatarsal amputation. Procedure planned: TMA (open) right foot Patient understands all risks complications and benefits of surgical intervention including but not limited to infection, hematoma, seroma, possible delayed healing of skin, non healing of skin, delayed healing of bone, non- union, possibility of pain irritating hardware and need for further surgical intervention at a later date. Patient is aware that surgery is not a guarantee of success for eliminating the patients pain and possible other issues may arise as a result. This may require the need for further surgical intervention at a later date. Plenty of time was allowed for questions to be asked, which were answered, to the patient's apparent satisfaction. The process of decision making was discussed in depth with the patient and which procedures are to be preformed and why. We will proceed with surgical intervention once all preoperative criteria has been met: Advance imaging: already obtained- demonstrating: Preoperative assessment: Weight bearing: NWB Will follow up with patient postoperatively and monitor closely. Code(s): C95.00 - ACUTE LEUKEMIA OF UNSP CELL TYPE NOT ACHIEVE REMISSION (2) Osteomyelitis Current Visit: No Status: Acute Code(s): M86.9 - OSTEOMYELITIS, UNSPECIFIED (3) MRSA (methicillin resistant staph aureus) culture positive Current Visit: No Status: Acute Code(s): Z22.322 - CARRIER OR SUSPECTED CARRIER OF METHICILLIN RESIS STAPH (4) PVD (peripheral vascular disease) Current Visit: No Status: Acute Code(s): I73.9 - PERIPHERAL VASCULAR DISEASE, UNSPECIFIED
[2022-11-04 16:16] LABS: A-aADO2 86; ABG HEMOGLOBIN 9.3; ABG POTASSIUM 4.1 (3.5-5.1); ABG SITE rt rad; ALLEN TEST OK? yes; ARTERIAL BLD GAS O2 SATURATION 88.4 % (95-100); ARTERIAL BLOOD GAS BASE EXCESS 2.2 (-2.0-2.0); ARTERIAL BLOOD GAS FIO2 28 %; ARTERIAL BLOOD GAS PCO2 47 mmHg (35-45); ARTERIAL BLOOD GAS PO2 55 mmHg (75-100); ARTERIAL BLOOD GAS pH 7.38 (7.35-7.45); CARBOXYHEMOGLOBIN 3.2 % THgb (0.0-6.9); HCO3- 27.8 (22-28); HGB O2 SAT 84.8 g/dF (94-100); Methhemoglobin 0.9 % (1.4-1.5); paO2 pAO1 0.39
[2022-11-04] MEDS: Paxil 20 MG PO SCH (17:01)
[2022-11-04] MEDS: Imdur 30 MG PO SCH (17:01)
[2022-11-04] MEDS: Glucophage 500 MG PO SCH (17:01)
[2022-11-04] MEDS: Klor Con PO SCH (17:01)
[2022-11-04] MEDS: PIPERACILLIN/TAZOBACTAM 3.375 GM in Sodium Chloride 100ML MINI-BAG PLUS 100 ML IV SCH (18:04)
[2022-11-04] MEDS: PROVENTIL 2.5 MG/3 ML NEB IH SCH (20:06)
[2022-11-04] MEDS: Pletal 100 MG PO SCH (21:15)
[2022-11-04] MEDS: Protonix 20MG Tablet PO SCH (21:16)
[2022-11-04] MEDS ORDERED: NON-FORMULARY ITEM (Esomeprazole Magnesium [Nexium] 20 MG Capsule.Dr) PO SCH (22:00)
[2022-11-05] MEDS: PIPERACILLIN/TAZOBACTAM 3.375 GM in Sodium Chloride 100ML MINI-BAG PLUS 100 ML IV SCH ×4 (00:35→17:20)
[2022-11-05 05:36] LABS: Absolute Neutrophil Ct (ANC) 2.19 x10^3/uL (1.4-6.9); BASOPHIL % 0.6 % (0.0-0.4); Basophil (Absolute #) 0.02 x10^3/uL (0-0.4); Eosinophil % 1.2 % (0.00-5.0); Eosinophil (Absolute #) 0.04 x10^3/uL (0-0.5); Hematocrit 27.9 % (35-47); Hemoglobin 8.4 g/dL (12.0-16.0); IMMATURE GRAN # 0.01 x10^3u/L (0.00-0.03); IMMATURE GRAN % 0.3 % (0.00-0.4); Lymphocyte (Absolute #) 0.64 x10^3/uL (1.0-4.6); Lymphocytes % 19.4 % (24.0-44.0); Mean Cell Volume 94.9 fL (78-100); Mean Corpuscular Hemoglobin 28.6 pg (26-32); Mean Corpuscular Hgb Concent. 30.1 g/dL (32-36); Mean Platelet Volume 13.2 fL (7.5-11.0); Monocytes % 12.1 % (0.0-12.0); Neutrophil % 66.4 % (36.0-66.0); Platelet Count 74 x10^3/uL (150-450); Red Blood Count 2.94 x10^6/uL (4.1-5.4); Red Cell Distribution Width 19.5 % (11.5-14.0); White Blood Count 3.3 x10^3/uL (4.0-10.5)
[2022-11-05 05:49] LABS: ALBUMIN 2.1 g/dL (3.5-5.0); ANION GAP 9.5 MEQ/L (5-15); BILIRUBIN,TOTAL 1.5 mg/dL (0.2-1.3); Calcium 7.6 mg/dL (8.4-10.2); Creatinine 1 1.35 mg/dL (0.52-1.04); EST GLOMERULAR FILTRATION RATE 41.7 ML/MIN; Potassium 4.1 mmol/L (3.5-5.1); Total Protein 7.1 g/dL (6.3-8.2)
[2022-11-05] MEDS ORDERED: Lactated Ringers 1,000 ML IV ONE (06:00)
[2022-11-05] MEDS ORDERED: Xylocaine 1% Vial 30 ML PF IJ ONE (06:00)
[2022-11-05] MEDS ORDERED: Marcaine Mpf 0.5% Vial 30 Ml ONE (06:00)
[2022-11-05] MEDS ORDERED: DIPRIVAN 200 MG/20 ML IV ONE (06:08)
[2022-11-05] MEDS ORDERED: SUBLIMAZE 100 MCG/2 ML ONE (06:24)
[2022-11-05] MEDS ORDERED: Versed 2 MG/2 ML Injection ONE (06:24)
[2022-11-05 06:31] LABS: Slide Review 1 YES
[2022-11-05] MEDS: PROVENTIL 2.5 MG/3 ML NEB IH SCH ×3 (07:32→19:37)
[2022-11-05] MEDS ORDERED: Ketamine HCl 50 MG/ML ONE (07:34)
[2022-11-05] MEDS: Glucophage 500 MG PO SCH ×2 (08:12→17:21)
[2022-11-05] MEDS ORDERED: NON-FORMULARY ITEM (Potassium Chloride [Klor-Con 10] 10 MEQ Tablet.Er) PO SCH (10:00)
[2022-11-05] MEDS ORDERED: ENOXAPARIN SODIUM SQ SCH (10:00)
[2022-11-05] MEDS: Imdur 30 MG PO SCH (10:09)
[2022-11-05] MEDS: Pletal 100 MG PO SCH ×2 (10:09→22:34)
[2022-11-05] MEDS: Klor Con PO SCH (10:10)
[2022-11-05] MEDS: Protonix 20MG Tablet PO SCH ×2 (10:10→22:34)
[2022-11-05] MEDS: VANCOMYCIN 1 GRAM/200 ML BAG 1 GM/200 ML PIGGYBACK IV SCH (10:10)
[2022-11-05] MEDS: Paxil 20 MG PO SCH (10:10)
--- NOTE | 2022-11-05 10:19 | XRAY ---
Indication: Follow-up amputation. Comparison: September 19, 2020 2 nonweightbearing views right foot demonstrates interval amputation all toes and all mid to distal metatarsals with overlying bandage material. Incidental osteopenia and old proximal 5th metatarsal shaft fracture. No other bony, articular, or soft tissue abnormalities.
--- NOTE | 2022-11-05 12:34 | PCM.NOTE ---
Date and Time: 11/05/22 1227 Subjective Assessment: No acute events overnight. Patient went for her surgery this morning, which appears to have been successful. She still little bit groggy afterwards. Having some pain at the site, but otherwise doing well. Objective Exam Wound Assessment: Skin/Wound Assessment Wound/Incision Assessment Start: 11/04/22 16:14 Text: Status: Active Freq: Q6H Protocol: Document 11/05/22 12:00 AR (Rec: 11/05/22 12:20 AR [id number]) Wound/Incision Assessment Right Foot Wound Assessment Shift Assessment Wound Type Amputation Dressing Status Dry & Intact Primary Dressing surgical dressing in place, MD ordered to not remove or alter. Comment Unable to assess wound due to dressing in place. MD order to not remove or alter dressing. Wound Photo Photo Taken No Comments: GENERAL: Sitting up in bed in no acute distress NEURO: Slightly groggy but easily arousable CV: Regular rate and rhythm, 2 out of 6 systolic murmur, pitting edema to bilateral shins. PULM: No wheezing today, no work of breathing, no accessory muscle usage. ABD: Soft, nontender, nondistended OBJECTIVE DATA Vital Signs: Vital Signs - 24 hr Temp Pulse Resp BP Pulse Ox 11/05/22 11:41 97.2 F 111 H 17 133/66 92 L 11/05/22 10:15 96.5 F 107 H 20 128/68 97 11/05/22 09:45 96.8 F 114 H 16 126/61 92 L 11/05/22 09:15 97.8 F 110 H 17 131/67 93 L 11/05/22 09:00 97.8 F 107 H 20 139/66 90 L 11/05/22 06:36 97.8 F 114 H 16 158/87 94 L 11/05/22 00:00 97.8 F 114 H 16 158/87 94 L 11/04/22 20:06 109 H 20 97 11/04/22 19:15 97.8 F 110 H 18 175/90 96 11/04/22 16:00 97.5 F 107 H 16 144/79 96 11/04/22 15:53 107 H 14 91 L Pain Assessment - Last Documented Pain Intensity 0 Intake and Output: Intake & Output 11/03/22 11/04/22 11/05/22 11/06/22 11:59 11:59 11:59 11:59 Intake Total 1020 Balance 1020 Weight 71.7 kg 71.7 kg Lab Results: Lab Results-Last 24 Hours 11/04/22 11/04/22 11/04/22 Range/Units 11:30 11:35 11:35 WBC (4.0-10.5) x10^3/uL RBC (4.1-5.4) x10^6/uL Hgb (12.0-16.0) g/dL Hct (35-47) % MCV (78-100) fL MCH (26-32) pg MCHC (32-36) g/dL RDW (11.5-14.0) % Plt Count (150-450) x10^3/uL MPV (7.5-11.0) fL Gran % (36.0-66.0) % Immature Gran % (Auto) (0.00-0.4) % Nucleat RBC Rel Count (0.00-0.1) % Eos # (Auto) (0-0.5) x10^3/uL Immature Gran # (Auto) (0.00-0.03) x10^3u/L Absolute Lymphs (auto) (1.0-4.6) x10^3/uL Absolute Monos (auto) (0.0-1.3) x10^3/uL Absolute Nucleated RBC (0.00-0.01) x10^3u/L Lymphocytes % (24.0-44.0) % Monocytes % (0.0-12.0) % Eosinophils % (0.00-5.0) % Basophils % (0.0-0.4) % Absolute Granulocytes (1.4-6.9) x10^3/uL Basophils # (0-0.4) x10^3/uL ESR 72 H (0-20) mm/hr Puncture Site pCO2 (35-45) mmHg pO2 (75-100) mmHg Base Excess (-2.0-2.0) O2 Saturation (94-100) g/dF ABG pH (7.35-7.45) ABG HCO3 (22-28) ABG O2 Sat (Measured) (95-100) % Steve Test A-a Gradient a/A Ratio Hemoglobin Carboxyhemoglobin (0.0-6.9) % THgb Methemoglobin (1.4-1.5) % Temperature C POC O2 Flow Rate % Sodium 139 (137-145) mmol/L Potassium 3.7 (3.5-5.1) mmol/L Chloride 106 (98-107) mmol/L Carbon Dioxide 30 (22-30) mmol/L Anion Gap 6.0 (5-15) MEQ/L BUN 27 H (7-17) mg/dL Creatinine 1.10 H (0.52-1.04) mg/dL Estimated GFR 52.8 ML/MIN Glucose 112 H (74-106) mg/dL POC Glucometer (74 to 106) mg/dL Lactic Acid (0.4-2.0) Calcium 7.7 L (8.4-10.2) mg/dL Total Bilirubin 2.00 H (0.2-1.3) mg/dL AST 137 H (14-36) U/L ALT 54 H (0-35) U/L Alkaline Phosphatase 335 H (38-126) U/L C-Reactive Prot, Quant (0-10) mg/L Serum Total Protein 7.5 (6.3-8.2) g/dL Albumin 2.3 L (3.5-5.0) g/dL Slides for Path Review YES 11/04/22 11/04/22 11/04/22 Range/Units 11:35 13:25 16:02 WBC (4.0-10.5) x10^3/uL RBC (4.1-5.4) x10^6/uL Hgb (12.0-16.0) g/dL Hct (35-47) % MCV (78-100) fL MCH (26-32) pg MCHC (32-36) g/dL RDW (11.5-14.0) % Plt Count (150-450) x10^3/uL MPV (7.5-11.0) fL Gran % (36.0-66.0) % Immature Gran % (Auto) (0.00-0.4) % Nucleat RBC Rel Count (0.00-0.1) % Eos # (Auto) (0-0.5) x10^3/uL Immature Gran # (Auto) (0.00-0.03) x10^3u/L Absolute Lymphs (auto) (1.0-4.6) x10^3/uL Absolute Monos (auto) (0.0-1.3) x10^3/uL Absolute Nucleated RBC (0.00-0.01) x10^3u/L Lymphocytes % (24.0-44.0) % Monocytes % (0.0-12.0) % Eosinophils % (0.00-5.0) % Basophils % (0.0-0.4) % Absolute Granulocytes (1.4-6.9) x10^3/uL Basophils # (0-0.4) x10^3/uL ESR (0-20) mm/hr Puncture Site rt rad pCO2 47 H (35-45) mmHg pO2 55 L (75-100) mmHg Base Excess 2.2 H (-2.0-2.0) O2 Saturation 84.8 L (94-100) g/dF ABG pH 7.38 (7.35-7.45) ABG HCO3 27.8 (22-28) ABG O2 Sat (Measured) 88.4 L (95-100) % Steve Test yes A-a Gradient 86 a/A Ratio 0.39 Hemoglobin 9.3 Carboxyhemoglobin 3.2 (0.0-6.9) % THgb Methemoglobin 0.9 L (1.4-1.5) % Temperature 37.0 C POC O2 Flow Rate 28 % Sodium (137-145) mmol/L Potassium 4.1 (3.5-5.1) mmol/L Chloride (98-107) mmol/L Carbon Dioxide (22-30) mmol/L Anion Gap (5-15) MEQ/L BUN (7-17) mg/dL Creatinine (0.52-1.04) mg/dL Estimated GFR ML/MIN Glucose (74-106) mg/dL POC Glucometer (74 to 106) mg/dL Lactic Acid 0.7 (0.4-2.0) Calcium (8.4-10.2) mg/dL Total Bilirubin (0.2-1.3) mg/dL AST (14-36) U/L ALT (0-35) U/L Alkaline Phosphatase (38-126) U/L C-Reactive Prot, Quant 28 H (0-10) mg/L Serum Total Protein (6.3-8.2) g/dL Albumin (3.5-5.0) g/dL Slides for Path Review 11/04/22 11/04/22 11/05/22 Range/Units 16:11 20:57 05:22 WBC (4.0-10.5) x10^3/uL RBC (4.1-5.4) x10^6/uL Hgb (12.0-16.0) g/dL Hct (35-47) % MCV (78-100) fL MCH (26-32) pg MCHC (32-36) g/dL RDW (11.5-14.0) % Plt Count (150-450) x10^3/uL MPV (7.5-11.0) fL Gran % (36.0-66.0) % Immature Gran % (Auto) (0.00-0.4) % Nucleat RBC Rel Count (0.00-0.1) % Eos # (Auto) (0-0.5) x10^3/uL Immature Gran # (Auto) (0.00-0.03) x10^3u/L Absolute Lymphs (auto) (1.0-4.6) x10^3/uL Absolute Monos (auto) (0.0-1.3) x10^3/uL Absolute Nucleated RBC (0.00-0.01) x10^3u/L Lymphocytes % (24.0-44.0) % Monocytes % (0.0-12.0) % Eosinophils % (0.00-5.0) % Basophils % (0.0-0.4) % Absolute Granulocytes (1.4-6.9) x10^3/uL Basophils # (0-0.4) x10^3/uL ESR (0-20) mm/hr Puncture Site pCO2 (35-45) mmHg pO2 (75-100) mmHg Base Excess (-2.0-2.0) O2 Saturation (94-100) g/dF ABG pH (7.35-7.45) ABG HCO3 (22-28) ABG O2 Sat (Measured) (95-100) % Steve Test A-a Gradient a/A Ratio Hemoglobin Carboxyhemoglobin (0.0-6.9) % THgb Methemoglobin (1.4-1.5) % Temperature C POC O2 Flow Rate % Sodium 139 (137-145) mmol/L Potassium 4.1 (3.5-5.1) mmol/L Chloride 108 H (98-107) mmol/L Carbon Dioxide 26 (22-30) mmol/L Anion Gap 9.5 (5-15) MEQ/L BUN 29 H (7-17) mg/dL Creatinine 1.35 H (0.52-1.04) mg/dL Estimated GFR 41.7 ML/MIN Glucose 112 H (74-106) mg/dL POC Glucometer 143 H 138 H (74 to 106) mg/dL Lactic Acid (0.4-2.0) Calcium 7.6 L (8.4-10.2) mg/dL Total Bilirubin 1.50 H (0.2-1.3) mg/dL AST 130 H (14-36) U/L ALT 49 H (0-35) U/L Alkaline Phosphatase 286 H (38-126) U/L C-Reactive Prot, Quant (0-10) mg/L Serum Total Protein 7.1 (6.3-8.2) g/dL Albumin 2.1 L (3.5-5.0) g/dL Slides for Path Review 11/05/22 11/05/22 11/05/22 Range/Units 05:22 06:04 08:08 WBC 3.3 L (4.0-10.5) x10^3/uL RBC 2.94 L (4.1-5.4) x10^6/uL Hgb 8.4 L (12.0-16.0) g/dL Hct 27.9 L (35-47) % MCV 94.9 (78-100) fL MCH 28.6 (26-32) pg MCHC 30.1 L (32-36) g/dL RDW 19.5 H (11.5-14.0) % Plt Count 74 L (150-450) x10^3/uL MPV 13.2 H (7.5-11.0) fL Gran % 66.4 H (36.0-66.0) % Immature Gran % (Auto) 0.3 (0.00-0.4) % Nucleat RBC Rel Count 0.0 (0.00-0.1) % Eos # (Auto) 0.04 (0-0.5) x10^3/uL Immature Gran # (Auto) 0.01 (0.00-0.03) x10^3u/L Absolute Lymphs (auto) 0.64 L (1.0-4.6) x10^3/uL Absolute Monos (auto) 0.40 (0.0-1.3) x10^3/uL Absolute Nucleated RBC 0.00 (0.00-0.01) x10^3u/L Lymphocytes % 19.4 L (24.0-44.0) % Monocytes % 12.1 H (0.0-12.0) % Eosinophils % 1.2 (0.00-5.0) % Basophils % 0.6 (0.0-0.4) % Absolute Granulocytes 2.19 (1.4-6.9) x10^3/uL Basophils # 0.02 (0-0.4) x10^3/uL ESR (0-20) mm/hr Puncture Site pCO2 (35-45) mmHg pO2 (75-100) mmHg Base Excess (-2.0-2.0) O2 Saturation (94-100) g/dF ABG pH (7.35-7.45) ABG HCO3 (22-28) ABG O2 Sat (Measured) (95-100) % Steve Test A-a Gradient a/A Ratio Hemoglobin Carboxyhemoglobin (0.0-6.9) % THgb Methemoglobin (1.4-1.5) % Temperature C POC O2 Flow Rate % Sodium (137-145) mmol/L Potassium (3.5-5.1) mmol/L Chloride (98-107) mmol/L Carbon Dioxide (22-30) mmol/L Anion Gap (5-15) MEQ/L BUN (7-17) mg/dL Creatinine (0.52-1.04) mg/dL Estimated GFR ML/MIN Glucose (74-106) mg/dL POC Glucometer 104 110 H (74 to 106) mg/dL Lactic Acid (0.4-2.0) Calcium (8.4-10.2) mg/dL Total Bilirubin (0.2-1.3) mg/dL AST (14-36) U/L ALT (0-35) U/L Alkaline Phosphatase (38-126) U/L C-Reactive Prot, Quant (0-10) mg/L Serum Total Protein (6.3-8.2) g/dL Albumin (3.5-5.0) g/dL Slides for Path Review YES 11/05/22 Range/Units 11:34 WBC (4.0-10.5) x10^3/uL RBC (4.1-5.4) x10^6/uL Hgb (12.0-16.0) g/dL Hct (35-47) % MCV (78-100) fL MCH (26-32) pg MCHC (32-36) g/dL RDW (11.5-14.0) % Plt Count (150-450) x10^3/uL MPV (7.5-11.0) fL Gran % (36.0-66.0) % Immature Gran % (Auto) (0.00-0.4) % Nucleat RBC Rel Count (0.00-0.1) % Eos # (Auto) (0-0.5) x10^3/uL Immature Gran # (Auto) (0.00-0.03) x10^3u/L Absolute Lymphs (auto) (1.0-4.6) x10^3/uL Absolute Monos (auto) (0.0-1.3) x10^3/uL Absolute Nucleated RBC (0.00-0.01) x10^3u/L Lymphocytes % (24.0-44.0) % Monocytes % (0.0-12.0) % Eosinophils % (0.00-5.0) % Basophils % (0.0-0.4) % Absolute Granulocytes (1.4-6.9) x10^3/uL Basophils # (0-0.4) x10^3/uL ESR (0-20) mm/hr Puncture Site pCO2 (35-45) mmHg pO2 (75-100) mmHg Base Excess (-2.0-2.0) O2 Saturation (94-100) g/dF ABG pH (7.35-7.45) ABG HCO3 (22-28) ABG O2 Sat (Measured) (95-100) % Steve Test A-a Gradient a/A Ratio Hemoglobin Carboxyhemoglobin (0.0-6.9) % THgb Methemoglobin (1.4-1.5) % Temperature C POC O2 Flow Rate % Sodium (137-145) mmol/L Potassium (3.5-5.1) mmol/L Chloride (98-107) mmol/L Carbon Dioxide (22-30) mmol/L Anion Gap (5-15) MEQ/L BUN (7-17) mg/dL Creatinine (0.52-1.04) mg/dL Estimated GFR ML/MIN Glucose (74-106) mg/dL POC Glucometer 118 H (74 to 106) mg/dL Lactic Acid (0.4-2.0) Calcium (8.4-10.2) mg/dL Total Bilirubin (0.2-1.3) mg/dL AST (14-36) U/L ALT (0-35) U/L Alkaline Phosphatase (38-126) U/L C-Reactive Prot, Quant (0-10) mg/L Serum Total Protein (6.3-8.2) g/dL Albumin (3.5-5.0) g/dL Slides for Path Review Radiology Exams: Radiology Procedures Category Date Time Status FOOT (2 VIEWS) Routine Exams 11/05/22 08:31 Completed Multi-Disciplinary Progress Notes: Multi-Disciplinary Progress Notes 11/05/22 10:09 Case Management Note by Anali Wayne WENT TO S/W PATIENT ABOUT HOME SITUATION AND PLANS FOR DC- PATIENT STILL DROWSY FROM SURGERY Initialized on 11/05/22 10:09 - END OF NOTE 11/05/22 09:26 Occupational Therapy Note by Chapis Sy PATIENT UNDERWENT SURGERY THIS MORNING, AND NURSES ARE CONTINUING POST OP VITALS. OCCUPATIONAL THERAPY WILL HOLD EVALUATION FOR TODAY, AND FOLLOW UP WITH PATIENT TOMORROW APPROPRIATE. Initialized on 11/05/22 09:26 - END OF NOTE 11/04/22 14:27 Physical Therapy Note by Moises (Mayra#[id number])Cindy CHART REVIEW COMPLETED THIS PM. PATIENT IS SCHEDULED FOR SURGERY TOMORROW, 11/05/22. PHYSICAL THERAPY EVALUATION IS PENDING FOLLOWING SURGERY AND POST-OP ORDERS. PLEASE NOTIFY PT OF ANY CHANGE IN STATUS. Initialized on 11/04/22 14:27 - END OF NOTE 11/04/22 14:01 Pharmacy Note by Jaime Montenegro Pharmacy dosing Zosyn cr cl = 47 ml/min Zosyn 3.375 gm q6h Monitor CR CL daily Jaime Montenegro Initialized on 11/04/22 14:01 - END OF NOTE 11/04/22 14:00 Pharmacy Note by Jaime Montenegro Pharmacokinetic dosing service Date: 11/04/2022 Time: 1400 Objective: Patient: ASTER HUNT Floor: 103 Age: 67 yo Serum creatinine: 1.10 mg/dL Height: 66 Inches Weight (kg): 72 Diagnosis: Osteomyelitis Relevant medical/social history: Cultures and sensitivities: previous MRSA Other labs: Assessment: IBW (kg): 59.30 Dosing wt(kg): 72 Estimated Creatinine clearance (ml/min): 47.1 CRCL method: Cockcroft and Gault using ibw(default). Drug selected: Vancomycin Loading dose (mg): none Vd (liters): 54.0 (factor used: 0.75 L/kg) Raymundo (hr-1): 0.043 Half life (hrs): 16.12 Recommended dose: 1000 mg Interval: 18 hrs Infusion time (hrs): 1.5 Predicted peak (mcg/mL): 33.3 Predicted trough (mcg/mL): 16.38 Total body weight is being used for vancomycin dosing. Renal function is stable [xxx ] /unstable [ ] Recommendations: Give Vancomycin 1000 mg q 18 hrs with an expected Cpeak of 33.3 mcg/ml and an expected Ctrough of 16.38 mcg/ml Renal dosing of other antibiotics (review renal dosing of other medications and list guidelines here): chantelsyn Thank you for the consult, will continue to follow. Signature: Jaime Montenegro Vancomycin Trough 11/06/222029 Initialized on 11/04/22 14:00 - END OF NOTE Assessment/Plan (1) Acute osteomyelitis of right foot Current Visit: Yes Status: Acute Assessment & Plan: 67-year-old woman with history of type 2 diabetes, PAD, hypertension, leukemia, anxiety, and GERD, here with right foot acute osteomyelitis and nonhealing goldman rgical wound. ## Acute osteomyelitis, nonhealing wound diabetic foot wound, with prior right third toe amputation, now nonhealing. And now with evidence of acute osteomyelitis on MRI. Underwent right transmetatarsal amputation today. CRP 28 on arrival. Continue vancomycin and Zosyn Follow-up blood cultures Follow-up pathology results to ensure cleared of osteomyelitis ## Acute kidney injury recent baseline creatinine is around 0.6, up to 1.3 today. Likely due to recent initiation of Lasix. Continue to hold home Lasix 40 TID, and losartan/HCTZ 50/12.5 Continuing LR postop until completes current bag Repeat BMP in the morning ## Type 2 diabetes at home, only on metformin. Well-controlled, with hemoglobin A1c of 5.3 in August. Continue metformin Moderate-dose sliding scale insulin ## Peripheral arterial disease with poorly healing wound as above. Continue cilostazol 100 mg BID ## Leukemia, pancytopenia nature of her leukemia is unclear, and patient cannot remember details. Her pancytopenia appears to be stable from August, when she was first diagnosed. Follow CBC ## Cirrhosis not noted in patient's history, but review of prior imaging from 2019 shows imaging evidence of cirrhosis. Currently she has elevated bilirubin, AST, and ALT, although within her baseline this year. All levels slightly improved today, likely from IV fluids. Repeat CMP in the morning CODE STATUS: Full code Diet: Diabetic for now, then n.p.o. at midnight Prophylaxis: Lovenox 40, will start tomorrow after having surgery today . Code(s): M86.171 - OTHER ACUTE OSTEOMYELITIS, RIGHT ANKLE AND FOOT Telemedicine Encounter - Telemedicine Encounter Telemedicine Encounter: The entirety of this encounter was performed via Telemedicine"
[2022-11-05] MEDS: NORCO 7.5/325 MG TAB PO PRN (12:37)
[2022-11-05] MEDS: Hydromorphone 1 mg/ml Injection IV PRN ×2 (14:06→19:53)
[2022-11-05] MEDS: Zofran 4 MG/2 ML VIAL IV PRN (17:31)
[2022-11-06] MEDS: PIPERACILLIN/TAZOBACTAM 3.375 GM in Sodium Chloride 100ML MINI-BAG PLUS 100 ML IV SCH ×2 (03:34→06:12)
[2022-11-06] MEDS: VANCOMYCIN 1 GRAM/200 ML BAG 1 GM/200 ML PIGGYBACK IV SCH ×2 (04:21→20:07)
[2022-11-06] MEDS: Hydromorphone 1 mg/ml Injection IV PRN ×2 (04:31→20:07)
[2022-11-06 05:34] LABS: Absolute Neutrophil Ct (ANC) 6.24 x10^3/uL (1.4-6.9); BASOPHIL % 0.5 % (0.0-0.4); Basophil (Absolute #) 0.04 x10^3/uL (0-0.4); Eosinophil % 0.6 % (0.00-5.0); Eosinophil (Absolute #) 0.05 x10^3/uL (0-0.5); Hemoglobin 7.3 g/dL (12.0-16.0); IMMATURE GRAN # 0.07 x10^3u/L (0.00-0.03); IMMATURE GRAN % 0.8 % (0.00-0.4); Lymphocyte (Absolute #) 1.03 x10^3/uL (1.0-4.6); Mean Cell Volume 94.9 fL (78-100); Mean Corpuscular Hemoglobin 28.9 pg (26-32); Mean Corpuscular Hgb Concent. 30.4 g/dL (32-36); Mean Platelet Volume 12.6 fL (7.5-11.0); Monocyte (Absolute #) 1.15 x10^3/uL (0.0-1.3); Monocytes % 13.4 % (0.0-12.0); Neutrophil % 72.7 % (36.0-66.0); Platelet Count 108 x10^3/uL (150-450); Red Blood Count 2.53 x10^6/uL (4.1-5.4); Red Cell Distribution Width 19.2 % (11.5-14.0); White Blood Count 8.6 x10^3/uL (4.0-10.5)
[2022-11-06 05:43] LABS: ANION GAP 9.1 MEQ/L (5-15); BILIRUBIN,TOTAL 1.8 mg/dL (0.2-1.3); Calcium 7.3 mg/dL (8.4-10.2); Creatinine 1 1.9 mg/dL (0.52-1.04); EST GLOMERULAR FILTRATION RATE 28.1 ML/MIN; Potassium 4.6 mmol/L (3.5-5.1); Total Protein 6.6 g/dL (6.3-8.2)
[2022-11-06] MEDS: PROVENTIL 2.5 MG/3 ML NEB IH SCH ×2 (07:30→18:50)
[2022-11-06] MEDS: Glucophage 500 MG PO SCH (08:19)
[2022-11-06] MEDS ORDERED: MAXIPIME 1 GM** 1 G in Dextrose 5%/Water IV Soln. 100ML PLUS BAG 100 ML IV SCH (10:00)
--- NOTE | 2022-11-06 10:31 | XRAY ---
Indication: Acute kidney injury. Two-dimensional renal sonogram performed. Comparison: None Both kidneys are normal in reniform shape with normal color perfusion Right kidney measures 9.2 x 4.6 x 4.7 cm and the left measures 10.7 x 5.1 x 4.4 cm. No focal solid/cystic renal mass or hydronephrosis. Corticomedullary differentiation preserved. Normal distended urinary bladder grossly unremarkable. Ureteral jets not seen within the allotted exam time. Incidental cirrhotic appearing liver with right abdominal ascites. Impression: 1. Negative renal sonogram. 2. Incidental cirrhotic liver with right abdominal ascites.
--- NOTE | 2022-11-06 10:33 | XRAY ---
Indication: Dyspnea. Hypoxia. Comparison: August 31, 2022 Portable chest demonstrates worsening moderate bibasilar effusions/atelectasis. Remaining heart and upper lungs unremarkable again with incidental left lung calcified granuloma. Bony thorax intact again with osteopenia.
[2022-11-06] MEDS: Lactated Ringers 1,000 ML IV SCH ×2 (10:34→22:50)
[2022-11-06] MEDS: Paxil 20 MG PO SCH (10:35)
[2022-11-06] MEDS: NORCO 7.5/325 MG TAB PO PRN (10:35)
[2022-11-06] MEDS: ENOXAPARIN SODIUM SQ SCH (10:35)
[2022-11-06] MEDS: Protonix 20MG Tablet PO SCH (10:35)
[2022-11-06] MEDS: Imdur 30 MG PO SCH (10:35)
[2022-11-06] MEDS: Klor Con PO SCH (10:35)
[2022-11-06] MEDS: Pletal 100 MG PO SCH ×2 (10:35→20:07)
[2022-11-06] MEDS: MAXIPIME 1 GM** 1 G in Dextrose 5%/Water IV Soln. 100ML PLUS BAG 100 ML IV SCH (10:55)
--- NOTE | 2022-11-06 11:47 | PCM.NOTE ---
Date and Time: 11/06/22 1141 Subjective Assessment: No acute events overnight. Patient has been placed on 2 L oxygen. She is complaining of some foot pain, but overall controlled with Dilaudid. She is complaining of persistent abdominal distention, but feels like her leg edema has improved. Objective Exam General Appearance: no apparent distress Wound Assessment: Skin/Wound Assessment Wound/Incision Assessment Start: 11/04/22 16:14 Text: Status: Active Freq: Q6H Protocol: Document 11/06/22 06:00 RS (Rec: 11/06/22 06:48 RS [id number]) Wound/Incision Assessment Right Foot Wound Type Amputation Dressing Status Dry & Intact Drainage Amount None Drainage Odor None/Absent Primary Dressing Elastic Bandage Comments: GENERAL: Sitting up in bed in no acute distress NEURO: Alert, oriented x3 CV: Regular rate and rhythm, 2 out of 6 systolic murmur, pitting edema to left lower obrien, unable to assess right because of wrappings PULM: Clear to auscultation bilaterally, no accessory muscle use, on 2 L nasal cannula. ABD: Soft, nontender, mildly distended OBJECTIVE DATA Vital Signs: Vital Signs - 24 hr Temp Pulse Resp BP Pulse Ox 11/06/22 10:55 98.7 F 118 H 20 153/66 93 L 11/06/22 07:52 129 H 18 91 L 11/06/22 06:44 98.0 F 116 H 18 104/56 90 L 11/06/22 04:00 98 F 100 H 20 134/66 11/06/22 00:00 98.6 F 84 18 130/76 93 L 11/05/22 20:00 97.8 F 88 18 130/76 93 L 11/05/22 19:53 123 H 18 93 L 11/05/22 16:00 97.8 F 113 H 17 143/72 92 L Pain Assessment - Last Documented Pain Intensity 5 Pain Scale Used 0-10 Pain Scale Intake and Output: Intake & Output 11/03/22 11/04/22 11/05/22 11/06/22 11:59 11:59 11:59 11:59 Intake Total 1020 340 Balance 1020 340 Weight 71.7 kg 71.7 kg Lab Results: Lab Results-Last 24 Hours 07/06/23 07/06/23 07/07/23 Range/Units 16:13 22:37 04:55 WBC 8.6 (4.0-10.5) x10^3/uL RBC 2.53 L (4.1-5.4) x10^6/uL Hgb 7.3 L (12.0-16.0) g/dL Hct 24.0 L (35-47) % MCV 94.9 (78-100) fL MCH 28.9 (26-32) pg MCHC 30.4 L (32-36) g/dL RDW 19.2 H (11.5-14.0) % Plt Count 108 L D (150-450) x10^3/uL MPV 12.6 H (7.5-11.0) fL Gran % 72.7 H (36.0-66.0) % Immature Gran % (Auto) 0.8 H (0.00-0.4) % Nucleat RBC Rel Count 0.0 (0.00-0.1) % Eos # (Auto) 0.05 (0-0.5) x10^3/uL Immature Gran # (Auto) 0.07 H (0.00-0.03) x10^3u/L Absolute Lymphs (auto) 1.03 (1.0-4.6) x10^3/uL Absolute Monos (auto) 1.15 (0.0-1.3) x10^3/uL Absolute Nucleated RBC 0.00 (0.00-0.01) x10^3u/L Lymphocytes % 12.0 L (24.0-44.0) % Monocytes % 13.4 H (0.0-12.0) % Eosinophils % 0.6 (0.00-5.0) % Basophils % 0.5 (0.0-0.4) % Absolute Granulocytes 6.24 (1.4-6.9) x10^3/uL Basophils # 0.04 (0-0.4) x10^3/uL Sodium (137-145) mmol/L Potassium (3.5-5.1) mmol/L Chloride (98-107) mmol/L Carbon Dioxide (22-30) mmol/L Anion Gap (5-15) MEQ/L BUN (7-17) mg/dL Creatinine (0.52-1.04) mg/dL Estimated GFR ML/MIN Glucose (74-106) mg/dL POC Glucometer 169 H 140 H (74 to 106) mg/dL Calcium (8.4-10.2) mg/dL Total Bilirubin (0.2-1.3) mg/dL AST (14-36) U/L ALT (0-35) U/L Alkaline Phosphatase (38-126) U/L Serum Total Protein (6.3-8.2) g/dL Albumin (3.5-5.0) g/dL 11/06/22 11/06/22 11/06/22 Range/Units 04:55 06:54 10:45 WBC (4.0-10.5) x10^3/uL RBC (4.1-5.4) x10^6/uL Hgb (12.0-16.0) g/dL Hct (35-47) % MCV (78-100) fL MCH (26-32) pg MCHC (32-36) g/dL RDW (11.5-14.0) % Plt Count (150-450) x10^3/uL MPV (7.5-11.0) fL Gran % (36.0-66.0) % Immature Gran % (Auto) (0.00-0.4) % Nucleat RBC Rel Count (0.00-0.1) % Eos # (Auto) (0-0.5) x10^3/uL Immature Gran # (Auto) (0.00-0.03) x10^3u/L Absolute Lymphs (auto) (1.0-4.6) x10^3/uL Absolute Monos (auto) (0.0-1.3) x10^3/uL Absolute Nucleated RBC (0.00-0.01) x10^3u/L Lymphocytes % (24.0-44.0) % Monocytes % (0.0-12.0) % Eosinophils % (0.00-5.0) % Basophils % (0.0-0.4) % Absolute Granulocytes (1.4-6.9) x10^3/uL Basophils # (0-0.4) x10^3/uL Sodium 134 L (137-145) mmol/L Potassium 4.6 (3.5-5.1) mmol/L Chloride 104 (98-107) mmol/L Carbon Dioxide 26 (22-30) mmol/L Anion Gap 9.1 (5-15) MEQ/L BUN 35 H (7-17) mg/dL Creatinine 1.90 H (0.52-1.04) mg/dL Estimated GFR 28.1 ML/MIN Glucose 98 (74-106) mg/dL POC Glucometer 97 95 (74 to 106) mg/dL Calcium 7.3 L (8.4-10.2) mg/dL Total Bilirubin 1.80 H (0.2-1.3) mg/dL AST 205 H (14-36) U/L ALT 64 H (0-35) U/L Alkaline Phosphatase 237 H (38-126) U/L Serum Total Protein 6.6 (6.3-8.2) g/dL Albumin 2.0 L (3.5-5.0) g/dL Radiology Exams: Radiology Procedures Category Date Time Status CHEST 1 VIEW (PORTABLE) Routine Exams 11/06/22 09:29 Completed FOOT (2 VIEWS) Routine Exams 11/05/22 08:31 Completed KIDNEY [US] Urgent Exams 11/06/22 09:25 Completed Chest x-ray: Small bilateral effusions with adjacent atelectasis, but no infiltrate, no significant edema. (Images personally reviewed) Renal ultrasound: Normal renal appearance, no evidence of hydronephrosis. Of note, cirrhotic liver with right-sided abdominal ascites. Multi-Disciplinary Progress Notes: Multi-Disciplinary Progress Notes 11/06/22 10:25 Case Management Note by Anali Wayne PATIENT HAS [facility]- THEY WERE NOTIFIED PATIENT HERE INPT. THEY WILL NEED UPDATED AT TIME OF DC AT [phone]. IF PATIENT ENDS UP DCING HOME- THEY WILL ALSO NEED FAXED THE DC INSTRUCTIONS, DC MED LIST AND DC SUMMARY ( IF AVAILABLE) TO [phone] Initialized on 11/06/22 10:25 - END OF NOTE 11/06/22 09:39 Pharmacy Note by Matheus Rodriguez Creatinine up to 1.9. Estimated CRCL is 27ml/min. Will reduce Maxipime to q24h per renal dosing policy. Initialized on 11/06/22 09:39 - END OF NOTE Assessment/Plan (1) Acute osteomyelitis of right foot Current Visit: Yes Status: Acute Assessment & Plan: 67-year-old woman with history of type 2 diabetes, PAD, hypertension, leukemia, anxiety, and GERD, here with right foot acute osteomyelitis and nonhealing surgical wound. ## Acute osteomyelitis, nonhealing wound diabetic foot wound, with prior right third toe amputation, now nonhealing. And now with evidence of acute osteomyelitis on MRI. Underwent right transmetatarsal amputation on 11/05. CRP 28 on arrival. Treating antibiotics to vancomycin and cefepime due to TYRELL (see below) Follow-up blood cultures Follow-up pathology results to ensure cleared of osteomyelitis Dr. Alcala planning repeat surgery next week for closure ## Acute kidney injury recent baseline creatinine is around 0.6, consistently rising today up to 1.9. She had recently been started on Lasix, but that has been held since admission, and still rising. Renal ultrasound does not show any obstruction. She does have cirrhosis with ascites, raising possibility of hepatorenal syndrome. As well, concomitant use of vancomycin and Zosyn has been associated with TYRELL. Check urine electrolytes Change antibiotics to avoid vancomycin/Zosyn combination Give LR at 100 mL/h Continue to hold home Lasix 40 TID, and losartan/HCTZ 50/12.5 Repeat BMP in the morning ## Type 2 diabetes at home, only on metformin. Well-controlled, with hemoglobin A1c of 5.3 in August. DC metformin due to TYRELL Moderate-dose sliding scale insulin ## Peripheral arterial disease with poorly healing wound as above. Continue cilostazol 100 mg BID ## Leukemia, pancytopenia nature of her leukemia is unclear, and patient cannot remember details. Her pancytopenia appears to be stable from August, when she was first diagnosed. Follow CBC ## Cirrhosis not noted in patient's history, but review of prior imaging from 2019 shows imaging evidence of cirrhosis. Currently she has elevated bilirubin, AST, and ALT, although within her baseline this year. All levels are stable today. Repeat CMP in the morning CODE STATUS: Full code Diet: Diabetic Prophylaxis: Lovenox 40 . Code(s): M86.171 - OTHER ACUTE OSTEOMYELITIS, RIGHT ANKLE AND FOOT Telemedicine Encounter - Telemedicine Encounter Telemedicine Encounter: The entirety of this encounter was performed via Telemedicine"
--- NOTE | 2022-11-06 13:13 | OP ---
SURGERY DATE/TIME: 11/05/2022 0715 PREOPERATIVE DIAGNOSES: 1) Osteomyelitis metatarsals 1, 2 and 4. 2) Cellulitis right lower extremity. 3) Diabetes type II, controlled. 4) Methicillin-resistant Staphylococcus aureus, chronic infection. 5) Peripheral neuropathy. 6) Leukemia. POSTOPERATIVE DIAGNOSES: 1) Osteomyelitis metatarsals 1, 2 and 4. 2) Cellulitis right lower extremity. 3) Diabetes type II, controlled. 4) Methicillin-resistant Staphylococcus aureus, chronic infection. 5) Peripheral neuropathy. 6) Leukemia. PROCEDURE: Open transmetatarsal amputation right lower extremity. SURGEON: Eladio Alcala DPM. AUDIO VISUAL PROJECT MANAGER: None. ANESTHESIA: Monitored anesthesia care with intraoperative local. HEMOSTASIS: Esmarch applied to the mid-calf for 55 total tourniquet minutes. ESTIMATED BLOOD LOSS: Approximately 50 cc. MATERIALS: 3-0 Nylon, 1,000 ml of Bactisure. INJECTABLES: 30 cc of a 1:1 mixture of 1% lidocaine plain and 0.5% bupivacaine plain injected in an ankle block-type fashion to the right lower extremity preoperatively. INDICATION FOR SURGERY: Jennie is a very pleasant 67-year-old female who is well known to my service for resistant methicillin-resistant Staphylococcus aureus infection and to some degree noncompliance. The patient started out with an infected third toe with osteomyelitis. Amputation was performed. However, the patient had a hard time healing the dorsal aspect of the wound and methicillin-resistant Staphylococcus aureus was identified. The patient did not show up for her IV antibiotics for several days at a time and resistance was developed to the antibiotics. Following this, we found that there was osteomyelitis of the third metatarsal which we proceeded with a partial metatarsal resection and attempt at delayed primary closure which was unsuccessful. The patient was noncompliant with her antibiotic regimen as well as had missed follow up for some period of time. In the several weeks leading up to today's procedure, the patient was diagnosed with leukemia which explains her inability to mount any response to the osteomyelitis. Given the delay of treatment and the noncompliance with the treatment, the patient has developed osteomyelitis confirmed with MRI to the first, second and third metatarsals. Options were discussed with the patient in regards to intervention versus nonintervention. The patient understands that if the labs go septic she may not be able to mount a response to the infection and potential result in as a result of sepsis. The patient has yet to follow up with the [facility] and delay of treatment at this time could mean potential life or . Options were discussed and the patient is willing to proceed with the transmetatarsal amputation in order to prevent life threatening or worse situation for the patient. All risks, complications and benefits of surgical intervention were discussed with the patient at this time including but not limited to infection, hematoma, seroma, possibility of delayed wound healing, nonwound healing, possible need for further surgical intervention at a later date, and possible failure of surgical intervention, possible need for below knee amputation. No guarantees were provided as to the outcome. Today's purpose is to control the infection and allow for the infection to drain. Plenty of time was allowed for the patient to ask questions which were answered to her apparent satisfaction. It is with that we decided to proceed. DESCRIPTION OF PROCEDURE AND FINDINGS: The patient is brought into the OR and placed and placed on the OR table in the supine position. Adequate monitored anesthesia care was administered until the patient was sedated. Under aseptic technique, a 30 cc ankle block was injected into the patient's right ankle. Following this, the right lower extremity was prepped and draped in the typical sterile fashion. At this time an Esmarch was applied to the mid-calf in order to provide for hemostasis during the procedure. Following this, a fish mouth incision at the dorsal aspect of the foot as well as plantar aspect of the foot was planned and the toe exposing as much of the plantar surface of the skin as possible. Following this, a 10 blade was utilized and carried down to the level of bone. Disarticulation was carried out at the level of the metatarsophalangeal joint. At this time as a unit the toes were handed off the field for pathologic assessment. From that standpoint, a Bautista was utilized to elevate the soft tissue full thickness flap off of the metatarsal basin of the plantar and dorsal aspects. From that standpoint a total joint salvage utilized to resect the metatarsal at the mid-shaft. Following this 1,000 ml of Bactisure was utilized to flush the surgical site and then 3 liters of sterile saline was then utilized to flush the surgical site. Any nonviable tissue was resected off the sesamoid and any extensor flexor tendons which were encountered were resected from the amputation site. Following this, trauma sutures were utilized to coapt the skin loosely at the central aspect of the wound and pack was applied utilizing 0.25 inch Iodoform packing to the medial and lateral aspects of the wound. A dressing consisting of Betadine, Adaptic, 4x4, Kerlix, ABD and RICA was applied to the patient's right foot. The patient then was reversed from anesthesia and returned to the postoperative anesthesia care unit with vital signs stable and vascular status intact. The patient handled the anesthesia as well as the procedure without significant complication. Postoperative orders as indicated in the patient's discharge chart.
[2022-11-06] MEDS: PROVENTIL 2.5 MG/3 ML NEB IH PRN (14:49)
[2022-11-06] MEDS ORDERED: Tums EX 750 MG PO PRN (16:25)
[2022-11-06] MEDS: PROTONIX 40 MG IV IV SCH (20:07)
[2022-11-06] MEDS: Zofran 4 MG/2 ML VIAL IV PRN (21:36)
[2022-11-06] MEDS ORDERED: Pepcid 20 MG VIAL IV PRN (21:56)
[2022-11-06] MEDS: MAALOX ES 30 ML UNIT DOSE PO PRN (22:01)
[2022-11-07] MEDS: MAALOX ES 30 ML UNIT DOSE PO PRN (03:51)
[2022-11-07 05:13] LABS: Absolute Neutrophil Ct (ANC) 6.05 x10^3/uL (1.4-6.9); BASOPHIL % 0.6 % (0.0-0.4); Basophil (Absolute #) 0.05 x10^3/uL (0-0.4); Eosinophil % 0.2 % (0.00-5.0); Eosinophil (Absolute #) 0.02 x10^3/uL (0-0.5); Hematocrit 25.4 % (35-47); Hemoglobin 7.5 g/dL (12.0-16.0); IMMATURE GRAN % 1.2 % (0.00-0.4); Lymphocyte (Absolute #) 0.98 x10^3/uL (1.0-4.6); Lymphocytes % 11.4 % (24.0-44.0); Mean Cell Volume 96.9 fL (78-100); Mean Corpuscular Hemoglobin 28.6 pg (26-32); Mean Corpuscular Hgb Concent. 29.5 g/dL (32-36); Monocyte (Absolute #) 1.43 x10^3/uL (0.0-1.3); Monocytes % 16.6 % (0.0-12.0); Platelet Count 110 x10^3/uL (150-450); Red Blood Count 2.62 x10^6/uL (4.1-5.4); Red Cell Distribution Width 18.9 % (11.5-14.0); White Blood Count 8.6 x10^3/uL (4.0-10.5)
[2022-11-07 05:32] LABS: ALBUMIN 2.2 g/dL (3.5-5.0); ANION GAP 15.1 MEQ/L (5-15); BILIRUBIN,TOTAL 1.8 mg/dL (0.2-1.3); Calcium 7.7 mg/dL (8.4-10.2); Creatinine 1 2.73 mg/dL (0.52-1.04); EST GLOMERULAR FILTRATION RATE 18.5 ML/MIN; Potassium 5.3 mmol/L (3.5-5.1)
[2022-11-07] MEDS: Hydromorphone 1 mg/ml Injection IV PRN ×3 (06:07→18:22)
[2022-11-07] MEDS: Lactated Ringers 1,000 ML IV SCH ×4 (07:19→18:22)
[2022-11-07] MEDS: PROVENTIL 2.5 MG/3 ML NEB IH SCH ×4 (07:23→18:58)
[2022-11-07] MEDS: Pletal 100 MG PO SCH ×2 (09:00→23:59)
[2022-11-07] MEDS: PROTONIX 40 MG IV IV SCH (09:00)
[2022-11-07] MEDS: Klor Con PO SCH ×2 (09:00→09:01)
[2022-11-07] MEDS: NORCO 7.5/325 MG TAB PO PRN (09:00)
[2022-11-07] MEDS: Imdur 30 MG PO SCH (09:00)
[2022-11-07] MEDS: Paxil 20 MG PO SCH (09:00)
[2022-11-07] MEDS: Pepcid 20 MG VIAL IV PRN (09:00)
[2022-11-07] MEDS: MAXIPIME 1 GM** 1 G in Dextrose 5%/Water IV Soln. 100ML PLUS BAG 100 ML IV SCH (09:00)
[2022-11-07] MEDS: ENOXAPARIN SODIUM SQ SCH (09:02)
[2022-11-07] MEDS: Zofran 4 MG/2 ML VIAL IV PRN ×2 (13:34→22:37)
[2022-11-07] MEDS: PROTONIX 40 MG IV*** 80 MG in Sodium Chloride 0.9% 500 ML 500 ML IV SCH (16:00)
[2022-11-07 16:39] LABS: ABO TYPING O; Antibody Screen NEGATIVE (NEGATIVE); RH TYPING POSITIVE
[2022-11-07] MEDS ORDERED: GlucaGen 1 MG IM ONE (22:19)
[2022-11-07] MEDS: Dextrose 5%-Lr IV Solution 1000 ML 1,000 ML IV SCH (22:37)
[2022-11-08] MEDS: PROTONIX 40 MG IV*** 80 MG in Sodium Chloride 0.9% 500 ML 500 ML IV SCH ×2 (01:59→11:57)
[2022-11-08 05:37] LABS: Absolute Neutrophil Ct (ANC) 9.31 x10^3/uL (1.4-6.9); BASOPHIL % 0.2 % (0.0-0.4); Basophil (Absolute #) 0.02 x10^3/uL (0-0.4); Eosinophil (Absolute #) 0 x10^3/uL (0-0.5); Hematocrit 25.2 % (35-47); Hemoglobin 7.4 g/dL (12.0-16.0); IMMATURE GRAN # 0.14 x10^3u/L (0.00-0.03); IMMATURE GRAN % 1.2 % (0.00-0.4); Lymphocyte (Absolute #) 0.54 x10^3/uL (1.0-4.6); Lymphocytes % 4.8 % (24.0-44.0); Mean Cell Volume 97.3 fL (78-100); Mean Corpuscular Hemoglobin 28.6 pg (26-32); Mean Corpuscular Hgb Concent. 29.4 g/dL (32-36); Mean Platelet Volume 10.6 fL (7.5-11.0); Monocyte (Absolute #) 1.32 x10^3/uL (0.0-1.3); Monocytes % 11.7 % (0.0-12.0); NUCLEATED RBC # 0.02 x10^3u/L (0.00-0.01); NUCLEATED RBC % 0.2 % (0.00-0.1); Neutrophil % 82.1 % (36.0-66.0); Platelet Count 148 x10^3/uL (150-450); Red Blood Count 2.59 x10^6/uL (4.1-5.4); Red Cell Distribution Width 19.2 % (11.5-14.0); White Blood Count 11.3 x10^3/uL (4.0-10.5)
[2022-11-08 05:56] LABS: ALBUMIN 2.1 g/dL (3.5-5.0); BILIRUBIN,TOTAL 3.7 mg/dL (0.2-1.3); Calcium 7.8 mg/dL (8.4-10.2); Creatinine 1 3.78 mg/dL (0.52-1.04); EST GLOMERULAR FILTRATION RATE 12.7 ML/MIN; Potassium 5.6 mmol/L (3.5-5.1); Total Protein 6.8 g/dL (6.3-8.2)
[2022-11-08] MEDS: Dextrose 5%-Lr IV Solution 1000 ML 1,000 ML IV SCH (06:55)
[2022-11-08] MEDS: Hydromorphone 1 mg/ml Injection IV PRN ×2 (07:46→13:36)
[2022-11-08] MEDS: PROVENTIL 2.5 MG/3 ML NEB IH SCH ×2 (08:27→13:25)
[2022-11-08] MEDS: Klor Con PO SCH (08:59)
[2022-11-08] MEDS: Pletal 100 MG PO SCH (08:59)
[2022-11-08] MEDS: Pepcid 20 MG VIAL IV PRN (09:09)
[2022-11-08] MEDS: MAXIPIME 1 GM** 1 G in Dextrose 5%/Water IV Soln. 100ML PLUS BAG 100 ML IV SCH (09:10)
[2022-11-08] MEDS: Paxil 20 MG PO SCH (09:10)
[2022-11-08] MEDS: Imdur 30 MG PO SCH (09:10)
[2022-11-08] MEDS: Zofran 4 MG/2 ML VIAL IV PRN (09:27)
[2022-11-08] MEDS ORDERED: Lasix 40 MG/4 ML IV ONE (09:38)
[2022-11-08 09:39] LABS: Appearance Turbid (Clear); Bacteria None Seen /HPF (None Seen); Bilirubin Small (Negative); Blood Large (Negative); Epithelial Cells Many /HPF (None Seen); Glucose, Urine Negative (Negative); Ketones Trace (Negative); Leukocyte Esterase Large (Negative); Nitrite Negative (Negative); Protein,Urine Dip 100 (Negative); RBC >100 /HPF (0-5); Specific Gravity 1.025 (1.005-1.030); WBC >100 /HPF (0-5)
[2022-11-08 09:40] LABS: ADD URINE CULTURE? ORDERED SEPARATELY (NO)
[2022-11-08] MEDS ORDERED: ENOXAPARIN SODIUM SQ SCH (10:00)
[2022-11-08] MEDS ORDERED: VANCOCIN 500 MG VIAL*** 500 MG in Sodium Chloride 100ML MINI-BAG PLUS 100 ML IV SCH (10:00)
[2022-11-08 11:24] LABS: CREATININE,URINE RANDOM 102.6 MG/DL
[2022-11-08] MEDS ORDERED: Zaroxolyn 2.5 MG PO ONE (12:12)
[2022-11-08] MEDS ORDERED: BUMEX 1 MG IV ONE (12:13)
[2022-11-08] MEDS ORDERED: D50W 50 ml Abboject IV PRN (12:59)
[2022-11-08 14:41] LABS: Slide Review 1 YES
[2022-11-08] MEDS ORDERED: SODIUM CHLORIDE 0.9% IV SCH (15:45)
[2022-11-08] MEDS ORDERED: BUMEX IV SCH (15:45)
[2022-11-08] MEDS ORDERED: BUMEX 1 MG ONE (15:57)
[2022-11-08] MEDS ORDERED: Sodium Chloride 0.9% 100 ML ONE (15:58)
[2022-11-08 16:29] VITALS: BP 106/53; PULSE 125; O2SAT 91
[2022-11-08] MEDS ORDERED: PROTONIX 40 MG IV IV SCH (22:00)
[2022-11-09] MEDS ORDERED: SODIUM CHLORIDE 0.9% IV SCH (10:00)
[2022-11-09] MEDS ORDERED: MAXIPIME IV SCH (10:00)
== END 2022-11-08 17:00 | disposition short-term general hospital (02) | DRG 475 ==
LOC: MED SURG 09:42
PROVIDERS: ADMIT Internal Medicine; ATTEND Internal Medicine
PROC: 0Y6M0Z9 Detachment at Right Foot, Partial 1st Ray, Open Approach (ICD-10-PCS; principal; 2022-11-05)
PROC: 0Y6M0ZB Detachment at Right Foot, Partial 2nd Ray, Open Approach (ICD-10-PCS; 2022-11-05)
PROC: 0Y6M0ZD Detachment at Right Foot, Partial 4th Ray, Open Approach (ICD-10-PCS; 2022-11-05)
PROC: 0Y6M0ZF Detachment at Right Foot, Partial 5th Ray, Open Approach (ICD-10-PCS; 2022-11-05)
DX: M86.171 Other acute osteomyelitis, right ankle and foot (principal); C95.90 Leukemia, unspecified not having achieved remission; N17.9 Acute kidney failure, unspecified; L03.115 Cellulitis of right lower limb; E11.51 Type 2 diabetes mellitus with diabetic peripheral angiopathy without gangrene; I10 Essential (primary) hypertension; K74.60 Unspecified cirrhosis of liver; A49.02 Methicillin resistant Staphylococcus aureus infection, unspecified site; E11.42 Type 2 diabetes mellitus with diabetic polyneuropathy; R60.0 Localized edema; Z79.899 Other long term (current) drug therapy; Z20.828 Contact with and (suspected) exposure to other viral communicable diseases
CPT/HCPCS: 28805; 36415; 36600; 71045; 73620; 76770; 80053; 80202; 81001; 82375; 82570; 82803; 82947; 83605; 84300; 85025; 85027; 85652; 86140; 86850; 86900; 86901; 87040; 87086; 93005; 94640; 94760; 94762; 97161; 97165; 97530; 99222; Q3014; A6260; J0692; J1170; J1610; J1650; J1940; J2001; J2250; J2405; J2704; J3010; J7609; A9270-GY; J3370